=== PATIENT | female | born 1980 | race Caucasian/White ===

== ENCOUNTER 2020-08-03 10:14 | Outpatient (REF) | payer OTHER, SELFPAY | END 2020-08-03 10:15 | disposition home or self-care (01) | LOC: HO.LAB 10:14 | PROVIDERS: PCP Nurse Practitioner Family; Visit Provider Internal Medicine | DX: Z20.828 Contact with and (suspected) exposure to other viral communicable diseases (principal) | CPT/HCPCS: 87635 ==

== ENCOUNTER 2020-08-18 09:23 | Outpatient (REF) | payer OTHER, SELFPAY | END 2020-08-18 09:24 | disposition home or self-care (01) | LOC: HO.LAB 09:23 | PROVIDERS: Visit Provider Internal Medicine | DX: Z20.828 Contact with and (suspected) exposure to other viral communicable diseases (principal) | CPT/HCPCS: C9803; U0003 ==

== ENCOUNTER 2021-01-04 16:39 | Emergency (ER) | payer OTHER, SELFPAY ==
[2021-01-04 16:42] VITALS: BP 152/73; PULSE 88; RESP 16; TEMP 36.7; BMI 41.5
[2021-01-04 18:28] LABS: MANUAL DIFF FLAG NO
[2021-01-04 18:30] LABS: Basophils Absolute Auto 0.1 X10*3/uL (0.0-0.2); Basophils Percent Auto 0.5 % (0-2); Eosinophils Absolute Auto 0.4 X10*3/uL (0.0-0.4); Eosinophils Percent Auto 3.5 % (0-4); Hematocrit 36.9 % (37-47); Hemoglobin 11.5 g/dl (12.0-16.0); Imm Gran Abs Auto 0.04 X10*3/uL (0.00-0.03); Imm Gran Pct Auto 0.3 % (0.0-0.4); Lymphocytes Absolute Auto 3.1 X10*3/uL (1.2-4.9); Lymphocytes Percent Auto 25.9 % (20-40); Mean Corpuscular HGB Conc 31.2 g/dl (31.0-35.0); Mean Corpuscular Hemoglobin 25.9 pg (27.0-33.0); Mean Corpuscular Volume 83.1 fL (80-98); Mean Platelet Volume 9.9 fL (9.4-12.3); Monocytes Absolute Auto 0.8 X10*3/uL (0.1-1.2); Monocytes Percent Auto 6.7 % (2-11); Neutrophils Absolute Auto 7.4 X10*3/uL (2.0-8.3); Neutrophils Percent Auto 63.1 % (45-73); Platelet Count 335 X10*3/uL (160-400); Red Blood Count 4.44 X10*6/uL (4.20-5.50); Red Cell Distribution Width 14.2 % (11.0-16.0); White Blood Count 11.8 X10*3/uL (4.8-10.8)
[2021-01-04 19:02] LABS: Anion Gap 15 (12-20); Blood Urea Nitrogen 16 mg/dL (9-16); Calcium 8.8 mg/dL (8.4-10.2); Carbon Dioxide 25 mmol/L (22-29); Chloride 105 mmol/L (96-108); Creatinine Clr Calc Pharmacy 132.3; Estimated Glomerular Filt Rate > 60; Glucose Random 100 mg/dL (60-115); Potassium 4.1 mmol/L (3.3-5.1); Sodium 141 mmol/L (135-145)
== END 2021-01-04 21:02 | disposition left against medical advice (07) ==
PROVIDERS: Emergency Provider Emergency Medicine
DX: M54.5 Low back pain (principal)
CPT/HCPCS: 36415; 80048; 85025; 99282

== ENCOUNTER 2023-01-22 09:38 | Emergency (ER) | payer OTHER, SELFPAY ==
--- NOTE | ~2023-01-22 | XR_ITS ---
EXAMINATION: XR CHEST CLINICAL INFORMATION: Chest pain COMPARISON: Chest x-ray 12/05/2018 TECHNIQUE: 2 views of the chest were obtained. FINDINGS: No significant abnormality is noted involving the heart, lungs, mediastinum, bony thorax or soft tissues. XR/XR chest 2V IMPRESSION: Unremarkable chest examination.
--- NOTE | 2023-01-22 09:40 | ECG_ITS ---
Test Reason : chest pain Blood Pressure : / mmHG Vent. Rate : 076 BPM Atrial Rate : 076 BPM P-R Int : 170 ms QRS Dur : 086 ms QT Int : 410 ms P-R-T Axes : 008 -07 011 degrees QTc Int : 461 ms Normal sinus rhythm Moderate voltage criteria for LVH, may be normal variant ( R in aVL , John product ) Borderline ECG When compared with ECG of 05-DEC-2018 22:41, Minimal criteria for Septal infarct are no longer Present Referred By: Generic ED Physician Electronically Signed By:KRISTA HEMPHILL MD
[2023-01-22 09:45] VITALS: BP 135/78; PULSE 77; RESP 16; TEMP 36.5; O2SAT 95; BMI 45.8
--- NOTE | 2023-01-22 09:55 | PC.NURSE ---
patient a&ox3, c/o mid sternal chest pain for months, labs drawn, ekg performed, counter installer applied-nsr, vss, pt awaiting provider
--- NOTE | 2023-01-22 09:57 | ED.CHESTPAIN ---
HPI - Chest Pain General Chief Complaint: Chest Pain Stated Complaint: chest pain Time Seen by Provider: 01/22/23 09:56 Source: patient Mode of arrival: ambulatory Limitations: no limitations History of Present Illness HPI narrative: Patient is a 42 year old assigned female at with a history of asthma presenting to the emergency department today with episodic central pressure chest pain x 2 months. Patient states that she had an episode this AM, her episodes usually spontaneously resolve after 60 mins. Has not noticed correlation with food ingestion or exercise. States she stays stationary at home, no recent trauma, and does not take any hormone or OCP. Patient denies any dizziness, lightheadedness, abdominal pain, nausea, vomiting, fever, chills, blurry vision, double vision, loss of vision, current chest pain, difficulty breathing, shortness of breath, back pain, night sweats, pain with urination, increased urinary frequency, increased urinary urgency, blood in her urine or stool, syncope or a near syncopal episode, recent trauma or falls, bowel incontinence, bladder incontinence, bowel retention, bladder retention, or any other complaints at this time. MD complaint: chest pain Pertinent past history: asthma Onset (ago): month(s) Timing of current episode: episodic Related Data On Oral Contraceptives: No Allergies Allergy/AdvReac Type Severity Reaction Status Date / Time acetaminophen [From TYLENOL] Allergy Mild HIVES Verified 01/22/23 09:49 codeine [CODEINE] Allergy Unknown HIVES Verified 01/22/23 09:49 Review of Systems Constitutional: Constitutional: Reports no additional constitutional complaints, Denies chills, Denies fever(s) and Denies night sweats Eyes: Eyes: Reports no additional eye complaints, Denies blurry vision, Denies change in vision, Denies diplopia, Denies eye discharge, Denies loss of vision and Denies eye pain ENT: Denies dizziness Cardiovascular: Cardiovascular: Reports no additional cardiovascular complaints, Reports chest pain (now resolved), Denies lightheadedness, Denies Loss of Consciousness and Denies dyspnea Respiratory: Respiratory: Reports no additional respiratory complaints and Denies dyspnea Gastrointestinal: Gastrointestinal: Reports no additional gastrointestinal complaints, Denies abdominal pain, Denies melena, Denies hematochezia, Denies change in bowel habits and Denies change in stool character Genitourinary: Genitourinary: Denies hematuria, Denies urinary frequency, Denies dysuria, Denies urinary incontinence, Denies urinary hesitancy and Denies urinary urgency Musculoskeletal: Musculoskeletal: Reports no additional musculoskeletal complaints, Denies numbness and Denies tingling Neurologic: Denies dizziness, Denies loss of vision, Denies numbness and Denies tingling Psychiatric: Psychiatric: Reports no additional psychiatric complaints Endocrine: Endocrine: Reports no additional endocrine complaints Hematologic/Lymphatic: Hematologic/Lymphatic: Reports no additional hematologic/lymphatic complaints Allergic/Immunologic: Allergic/Immunologic: Reports no additional allergic/immunologic complaints [facility] Past Medical History Attestation statement: The following information was validated with the patient. Source: old records reviewed and nursing notes reviewed Medical History Asthma Cervical cancer Surgical History History of hysterectomy Social History Social History Alcohol intake: never Smoked in Last 30 Days: No Use of substances other than those prescribed or required for medical reasons: No Advance Directives: No Advance Directives Information Provided: No Patient : No Physical Exam Vital Signs: Vital Signs: Last Vital Signs Temp 97.7 F 01/22/23 09:45 Pulse 77 01/22/23 09:45 Resp 16 01/22/23 09:45 BP 135/78 01/22/23 09:45 Pulse Ox 95 01/22/23 09:45 O2 Del Method Room Air 01/22/23 09:45 BMI result Body Mass Index 45.8 Const: General: cooperative, no acute distress, alert and awake Nutritional Appearance: well nourished Orientation/consciousness: patient oriented x3 Limitations: no limitations HEENT: Head: Yes normal to inspection and Yes atraumatic Ears: hearing grossly normal bilaterally and external ears normal General nose exam: Normal external nose present, no nasal discharge noted and no epistaxis Face and sinus: Yes normal facial exam, No abrasion and No laceration Mouth: Normal oral and palatal mucosa present, no drooling and no muffled voice Eyes: General: appearance normal, both eyes and all related structures Periorbital: periorbital findings normal Eyelids: Yes eyelids normal Conjunctivae: conjunctivae normal Pupils: Equal, round and reactive pupils present EOM: EOMs intact bilaterally Neck: Neck: Yes normal visual inspection, Yes full ROM and Yes no lymphadenopathy Chest: Chest palpation & inspection: normal inspection of the chest Resp: Effort & Inspection: normal respiratory effort and able to speak in complete sentences Auscultation: clear to auscultation bilaterally Cardio: Rate: regular rate Rhythm: regular rhythm Heart sounds: S1 normal heart sound present GI: Inspection: Yes normal to inspection Palpation (GI): Soft to palpation, not firm, nontender and no guarding Neuro: General: patient oriented x3 and moves all extremities Cranial nerves: Yes Equal, round and reactive pupils present Cognition (Neuro): normal cognition Motor exam (neuro): 5/5 motor strength present throughout Sensory Exam: Normal double simultaneous stimulation for sensation Coordination: [id number] test normal Extrem: General: Yes normal to inspection, Yes full ROM and Yes capillary refill normal Psych: Appearance: grossly normal Mental Status: mental status grossly normal Affect: normal affect Attitude: cooperative Thought process: Normal thought process present Thought content: Normal thought content present Insight: Good insight present (Psych) Medications Administered Discontinued Medications Generic Name Dose Route Start Last Admin Trade Name Freq PRN Reason Stop Dose Admin Ketorolac Tromethamine 15 mg 01/22/23 10:50 01/22/23 10:59 Ketorolac Tromethamine 15 Mg/Ml Vial IM 01/22/23 10:51 15 mg ONCE ONE Administration Medical Decision Making Medical Decision Making [facility] Narrative: Patient is a 42 year old assigned female at with a history of asthma presenting to the emergency department today after an episode of chest pain that is now resolved. Patient's physical exam was unremarkable. Patient's blood work was unremarkable. Patient's EKG was unremarkable. Patient's chest x-ray showed no acute process. I explained my physical exam findings as well as all test results to the patient. I answered all questions asked by the patient. Patient received IM Toradol which she stated helped her symptoms significantly. I stressed the importance of the patient taking her medication as prescribed. I stressed the importance of the patient following up with her primary care provider. I stressed the importance of the patient returning to the emergency department immediately if her symptoms were to worsen or if she were to develop any dizziness, shortness of breath, difficulty breathing, chest pain, blurry vision, loss of vision, nausea, vomiting, abdominal pain, fever, chills, back pain, or any other complaints. Patient verbalized agreement and understanding with this treatment plan and discharge. Differential Diagnosis Differential Diagnoses: The differential diagnosis associated with the presentation includes resolved chest pain, chest wall pain Lab Data MDM Lab Attestation statement: I reviewed the patient's lab results. 01/22/23 09:55 01/22/23 09:55 Labs: Lab Results 01/22/23 01/22/23 01/22/23 Range/Units 09:55 09:55 09:55 WBC 11.2 H (4.8-10.8) X10*3/uL RBC 4.74 (4.20-5.50) X10*6/uL Hgb 12.3 (12.0-16.0) g/dl Hct 39.0 (37.0-47.0) % MCV 82.3 (80.0-98.0) fL MCH 25.9 L (27.0-33.0) pg MCHC 31.5 (31.0-35.0) g/dl RDW 14.1 (11.0-16.0) % Plt Count 342 (160-400) X10*3/uL MPV 9.9 (9.4-12.3) fL Immature Gran % (Auto) 0.4 (0.0-0.4) % Neut % (Auto) 64.0 (45-73) % Lymph % (Auto) 25.7 (20-40) % Power % (Auto) 6.5 (2-11) % Eos % (Auto) 2.8 (0-4) % Baso % (Auto) 0.6 (0-2) % Lymph # (Auto) 2.9 (1.2-4.9) X10*3/uL Power # (Auto) 0.7 (0.1-1.2) X10*3/uL Eos # (Auto) 0.3 (0.0-0.4) X10*3/uL Baso # (Auto) 0.1 (0.0-0.2) X10*3/uL Abs Immat Gran (auto) 0.05 H (0.00-0.03) X10*3/uL Absolute Neuts (auto) 7.1 (2.0-8.3) x10*3/uL Absolute Nucleated RBC 0.000 (0.0-0.012) X10*3/uL Nucleated RBC % (auto) 0.0 (0.0-0.2) /100WBC Sodium 140 (135-145) mmol/L Potassium 4.0 (3.3-5.1) mmol/L Chloride 105 (96-108) mmol/L Carbon Dioxide 27 (22-29) mmol/L Anion Gap 12 (12-20) BUN 12 (9-16) mg/dL Creatinine 0.74 (0.5-1.4) mg/dL Estim Creat Clear Calc 143.7 Estimated GFR > 60 Random Glucose 131 H (60-115) mg/dL Calcium 8.9 (8.4-10.2) mg/dL Troponin I High Sens < 2.7 (<3.5-17.0) ng/L Independent Interpretation I performed an independent interpretation of an: EKG Interpretation: Vent. Rate: 076 BPM ? ? Atrial Rate: 076 BPM P-R Int: 170 ms? QRS Dur: 086 ms QT Inc: 410 ms ? ? ? P-R-T Axes: 008 -07 011 degrees QTc Int: 461 ms ? Normal sinus rhythm Moderate voltage criteria for LVH, may be normal variant ( R in aVL , John product ) Borderline ECG When compared with ECG of 05-DEC-2018 22:41, Minimal criteria for Septal infarct are no longer Present Electronically Signed By:NILS LINDQUIST MD Dictated By: Nils Lindquist MD Signed By: Electronically signed by Nils Lindquist MD 01/22/23 1022 Radiology Impression Radiologist Impression: My interpretation is in agreement with the radiologist's impression of this imaging study. EXAMINATION: XR CHEST CLINICAL INFORMATION: Chest pain COMPARISON: Chest x-ray 12/05/2018 TECHNIQUE: 2 views of the chest were obtained. FINDINGS: No significant abnormality is noted involving the heart, lungs, mediastinum, bony thorax or soft tissues. XR/XR chest 2V IMPRESSION: Unremarkable chest examination. Dictated By: Remberto Leiva MD Signed By: Electronically signed by Remberto Leiva MD 01/22/23 1044 Discharge Plan Discharge Clinical Impression: Chest wall pain Patient Disposition: Home, Self-Care Instructions: Chest Wall Pain (ED) Additional Instructions: Follow up with your primary care provider. Return to the emergency department immediately if your symptoms worsen or if you develop any dizziness, shortness of breath, difficulty breathing, chest pain, blurry vision, loss of vision, nausea, vomiting, abdominal pain, fever, chills, back pain, or any other complaints. Referrals: [facility] Family Medicine [Provider Group] (Call to establish and follow up with a primary care provider. If you already have a primary care provider, please follow up with them.) [facility] [Provider Group] (Call to establish and follow up with a primary care provider. If you already have a primary care provider, please follow up with them.) [facility] Primary Care,[facility] [Provider Group] (Call to establish and follow up with a primary care provider. If you already have a primary care provider, please follow up with them.) Stand Alone Forms: Work/School Release Interventions: ED Discharge Assessment Last Done: 01/22/23 11:06 Discharge Date/Time: 01/22/23 11:06 Print Language: Sri Lankan
[2023-01-22 09:58] LABS: MANUAL DIFF FLAG NO
[2023-01-22 09:59] LABS: Basophils Absolute Auto 0.1 X10*3/uL (0.0-0.2); Basophils Percent Auto 0.6 % (0-2); Eosinophils Absolute Auto 0.3 X10*3/uL (0.0-0.4); Eosinophils Percent Auto 2.8 % (0-4); Hemoglobin 12.3 g/dl (12.0-16.0); Imm Gran Abs Auto 0.05 X10*3/uL (0.00-0.03); Imm Gran Pct Auto 0.4 % (0.0-0.4); Lymphocytes Absolute Auto 2.9 X10*3/uL (1.2-4.9); Lymphocytes Percent Auto 25.7 % (20-40); Mean Corpuscular HGB Conc 31.5 g/dl (31.0-35.0); Mean Corpuscular Hemoglobin 25.9 pg (27.0-33.0); Mean Corpuscular Volume 82.3 fL (80.0-98.0); Mean Platelet Volume 9.9 fL (9.4-12.3); Monocytes Absolute Auto 0.7 X10*3/uL (0.1-1.2); Monocytes Percent Auto 6.5 % (2-11); Neutrophils Absolute Auto 7.1 x10*3/uL (2.0-8.3); Platelet Count 342 X10*3/uL (160-400); Red Blood Count 4.74 X10*6/uL (4.20-5.50); Red Cell Distribution Width 14.1 % (11.0-16.0); White Blood Count 11.2 X10*3/uL (4.8-10.8)
[2023-01-22 10:15] LABS: Anion Gap 12 (12-20); Blood Urea Nitrogen 12 mg/dL (9-16); Calcium 8.9 mg/dL (8.4-10.2); Carbon Dioxide 27 mmol/L (22-29); Chloride 105 mmol/L (96-108); Creatinine Clr Calc Pharmacy 143.7; Estimated Glomerular Filt Rate > 60; Glucose Random 131 mg/dL (60-115); Sodium 140 mmol/L (135-145)
--- NOTE | 2023-01-22 10:20 | PC.NURSE ---
pt to xray
[2023-01-22 10:25] LABS: Troponin-I High Sensitivity < 2.7 ng/L (<3.5-17.0)
--- OUTSIDE RECORDS SUMMARY | 2023-01-22 10:35 | XMS_ITS | Continuity of Care Document ---
Author Name Unknown Organization [facility] Address [address] [place] [id number]- Care Team Providers Care Buffing Wheel Inspector Name Role Phone Josr MARTÍNEZ, Rika Yanes Primary Care Physician [phone] Encounter [facility] Date(s): 09/04/20 - 10/04/20 [facility] [address] [place] [address]- Attending Physician: Poonam Rich Admitting Physician: Poonam Rich Referring Physician: AdmtrPoonam Allergies, Adverse Reactions, Alerts Substance Reaction Severity Status Tylenol with Codeine gets red and hot Act mulu Immunizations Given and Recorded Vaccine Date Status Refusal Reason pneumococcal 13-valent vaccine 1 08/04/17 Given tetanus/diphtheria/pertussis, acel(Tdap) 03/20/16 Given pneumococcal 23-valent vaccine 09/29/13 Given 1Early/Late Reason: Wan to Standard Admin Times Medications albuterol 0.083% inhalation solution 3 mL = 2.5 mg, Inhalation, Every 6 hours, PRN for wheezing, # 25 each, 0 Refills, Maintenance, 11/18/19 14:20:00 EST, Solution, [id number], 167.1, cm, 11/18/19 13:45:00 EST, Height, 119.9, kg, 08/31/19 12:00:00 EST, Dry Weight Start Date: 11/18/19 Status: Ordered albuterol 0.083% inhalation solution 3 mL = 2.5 mg, Inhalation, Every 6 hours, PRN for wheezing, # 60 each, 0 Refills, Maintenance, 06/22/19 10:43:09 EDT, Solution Start Date: 06/22/19 Status: Ordered albuterol CFC free 90 mcg/inh inhalation aerosol 2, puffs, Inhalation, 4 times a day, PRN, # 25 Gm, Refills 2, Tot. Refills 2, Maintenance, 12/28/2011:08:00 EDT, Aerosol, Route to Pharmacy Electronically, [id number], [id number], 167.1, cm, 12/28/19 11:35:00 EDT, He... Start Date: 12/28/19 Status: Ordered Claritin 10 mg oral tablet 10 mg, 1, tablet, By Mouth, Daily, # 30 tablet, Refills 11, Tot. Refills 11, Maintenance, 06/22/19 10:44:05 EDT, Route to Pharmacy Electronically, [id number], [id number] Start Date: 06/22/19 Stop Date: 06/16/20 Status: Ordered diclofenac 1% topical gel 1 application, Topically, 4 times a day, PRN Pain , Severe, right ankle and left wrist due for labs. orders in the system. please go to any [facility] lab., # 100 Gm, 0 Refills, Maintenance, 10/02/20 11:22:00 EST, Gel, [facility]/pharmacy #[id number], Partial fill... Start Date: 10/02/20 Status: Ordered Flovent HFA 110 mcg/inh inhalation aerosol 2 puffs, Inhalation, 2 times a day, # 12 Gm, 3 Refills, Maintenance, 12/28/19 12:07:00 EDT, Aerosol, [facility] #[id number], 167.1, cm, 12/28/19 11:35:00 EDT, Height, 119.9, kg, 08/31/19 12:00:00 EST, Dry Weight Start Date: 12/28/19 Status: Ordered Nebulizer/Compressor See Instructions, # 1 each, Maintenance, use as needed, 09/14/19 11:33:05 EST, Compound Start Date: 09/14/19 Status: Ordered Nebulizer/Compressor See Instructions, # 1 each, Maintenance, as directed. with all supplies including tubing and mouthpiece, 09/14/19 11:53:40 EST, Compound Start Date: 09/14/19 Status: Ordered predniSONE 20 mg oral tablet See Instructions, in arabic : one tab a day for 10 days then decrease to 1/2 tab a day for 7 d., #14 tablet, 0 Refills, Maintenance, 01/26/20 16:02:00 EDT, Tablet, [id number], 167.1, cm, 01/11/20 11:27:00 EDT, Height, 119.9, kg, 08/31/19 12:... Start Date: 01/26/20 Status: Ordered wrist splints wrist splints, See Instructions, # 2 each, Refills 0, Tot. Refills 0, Maintenance, dx : cts, to usenightly ., 01/31/20 15:50:00 EDT, Supply Start Date: 01/31/20 Status: Ordered Zaditor 0.025% ophthalmic solution 1 drops, Eyes, Both, Every 12 hours, # 7.5 mL, 0 Refills, Maintenance, 06/22/19 10:44:19 EDT, 1 drops Eyes, Both Every 12 hours Start Date: 06/22/19 Status: Ordered Problem List Condition Effective Dates Status Health Status Inform ant Acute asthma flare(Confirmed) Active Allergic rhinitis(Confirmed) Active Asthma(Confirmed) Active Bartholin's gland cyst(Confirmed) Active Lipoma of back(Confirmed) Active Cervical cancer(Confirmed) Active Morbid obesity(Confirmed) Active Acquired vaginal adhesions(Confirmed) Active Social History Social History Type Response Smoking Status Never smoker entered on: 07/22/17 Sex
--- OUTSIDE RECORDS SUMMARY | 2023-01-22 10:35 | XMS_ITS | Continuity of Care Document ---
Author Name Unknown Organization [facility] Address [address] [place] [id number]- Care Team Providers Care Director Vaccine Name Role Phone Damian Reyes MD Primary Care Physician Encounter [facility] [place] Date(s): 12/09/22 - 01/09/[address] [facility] [address] [address] Attending Physician: Arturo Berry MD Admitting Physician: Arturo Berry MD Referring Physician: Damian Reyes MD Allergies, Adverse Reactions, Alerts Substance Reaction Severity Status SUMAtriptan 1 Persistent Moderate Active Tylenol with Codeine gets red and hot Act mulu 1Vomiting, weakness, flushing Immunizations Given and Recorded Vaccine Date Status Refusal Reason [id number] 12y+ bivalent booster vax 01/02/23 Given SARS-CoV-2 mRNA ([id number]) vax 02/18/22 Given SARS-CoV-2 (COVID-19) mRNA BNT-162b2 vac 07/24/21 Given SARS-CoV-2 (COVID-19) mRNA BNT-162b2 vac 07/03/21 Given pneumococcal 13-valent vaccine 1 08/04/17 Given tetanus/diphtheria/pertussis, acel(Tdap) 03/20/16 Given pneumococcal 23-valent vaccine 09/29/13 Given 1Early/Late Reason: Wan to Standard Admin Times Medications albuterol CFC free 90 mcg/inh inhalation aerosol 2, puffs, Inhalation, 4 times a day, PRN, # 25 Gm, Refills 2, Tot. Refills 2, Maintenance, 08/04/2214:56:00 EDT, Aerosol, Route to Pharmacy Electronically, [id number], [id number], 167, cm, 08/04/22 14:42:00... Start Date: 08/04/22 Status: Ordered AutoCPAP 8-20 with heated humidification AutoCPAP 8-20 with heated humidification, See Instructions, # 1 each, Refills 0, Tot. Refills 0, Maintenance, use overnight and naps from [facility], 12/10/22 13:36:00 EST, Compound Start Date: 12/10/22 Status: Ordered Bilateral Class I (20-30mmHg) Thigh-high Stockings Bilateral Class I (20-30mmHg) Thigh-high Stockings, See Instructions, # 2 kit, Refills 2, Tot. Refills 2, Maintenance, Dx: I87.2. SABRINA: 99 Use daily. On in a.m. off at bedtime, 01/02/23 11:19:00 EDT, Supply Start Date: 01/02/23 Status: Ordered Compression Stockings See Instructions, # 2 pack/packet, Maintenance, surgical, calf length 20-30 mm Hg, 12/30/22 6:20:00EDT, Supply, 167, cm, 12/17/22 10:11:00 EST, Height, 130.9, kg, 12/17/22 10:11:00 EST, Dry Weight Start Date: 12/30/22 Status: Ordered Compression Stockings See Instructions, # 1 each, Maintenance, surgical, knee length 20-30 mm Hg Varicose veins of both lower extremities (I83.93) use daily to prevent worsening varicose veins/swelling LEs, 06/28/21 8:27:00 EDT, Supply Start Date: 06/28/21 Status: Ordered diclofenac 1% topical gel = 2 Gm, Topically, 4 times a day, PRN Pain , Moderate, # 100 Gm, 0 Refills, Maintenance, 01/02/23 11:21:00 EDT, [id number], Partial fill upon patient request if the prescription is for a schedule II opioid drug., 167, cm, 01/02/23 10:... Start Date: 01/02/23 Stop Date: 02/01/23 Status: Ordered enalapril 5 mg oral tablet 5 mg, 1, tablet, By Mouth, Daily, # 30 tablet, Refills 3, Tot. Refills 3, Maintenance, 11/06/22 15:19:00 EST, Route to Pharmacy Electronically, [id number], Partial fill upon patient request if the prescription is for a schedule II opi... Start Date: 11/06/22 Status: Ordered Home Blood Pressure Monitor See Instructions, # 1 each, Maintenance, I10 SABRINA 99 Arm Circ 37 CM, BMI 286 lbs weight 36.6, 06/05/22 11:19:00 EDT, Supply Start Date: 06/05/22 Status: Ordered montelukast 10 mg oral tablet 10 mg, 1, tablet, By Mouth, Daily, # 30 tablet, Refills 5, Tot. Refills 5, Maintenance, 06/30/22 10:47:00 EDT, Route to Pharmacy Electronically, [facility] #[id number], Partial fill upon patientrequest if the prescription is for a schedule II op... Start Date: 06/30/22 Stop Date: 12/27/22 Status: Ordered Nebulizer/Compressor See Instructions, # 1 each, Maintenance, as directed. with all supplies including tubing and mouthpiece, 09/14/19 11:53:40 EST, Compound Start Date: 09/14/19 Status: Ordered Symbicort 160mcg/4.5mcg Inhaler 2, puffs, Inhalation, 2 times a day, # 10.2 Gm, Refills 6, Tot. Refills 6, Maintenance, 09/23/22 11:11:00 EST, Aerosol, Route to Pharmacy Electronically, [id number], [facility] #[id number], 167, cm, 09/11/22 11:44:00 EST... Start Date: 09/23/22 Status: Ordered tiZANidine 2 mg oral tablet 2 mg, 1, tablet, By Mouth, 3 times a day, # 90 tablet, Refills 0, Tot. Refills 0, Maintenance, 12/11/22 13:37:00 EST, Route to Pharmacy Electronically, [facility] #[id number], Partial fill upon patient request if the prescription is for a schedul... Start Date: 12/11/22 Status: Ordered wrist splints wrist splints, See Instructions, # 2 each, Refills 0, Tot. Refills 0, Maintenance, dx : cts, to usenightly ., 01/31/20 15:50:00 EDT, Supply Start Date: 01/31/20 Status: Ordered Problem List Condition Confirmation Course Effective Dates Status Health St atus Informant Acute asthma flare Confirmed Active Allergic rhinitis Confirmed Active Asthma Confirmed Active Bartholin's gland cyst Confirmed Active Carpal tunnel syndrome, left Confirmed Active S/P laparoscopic appendectomy Confirmed 04/19/22 Active HTN (hypertension) Confirmed Active Lipoma of back Confirmed Active Cervical cancer Confirmed Active MAGNOLIA (obstructive sleep apnea) Confirmed Active Prediabetes Confirmed Active Severe obesity Confirmed Active Acquired vaginal adhesions Confirmed Active Varicose veins of both lower extremities Confirmed Active Social History Social History Type Response Smoking Status Never (less than 100 in lifetime) entered on: 01/02/23 Sex Patient Care team information Care Team Personnel Name: Damian Reyes MD Position: [facility] Resident Member Role: PCP Address: Address: [address] [place] [address]- Name: Zoya Rodgers RN Position: [facility] Onco RN Member Role: Primary Care Nurse Name: Jayde Llanos RN Position: [facility] RN Member Role: Primary Care Nurse Care Team Related Persons Name: RUSLAN MCCRARY Address: [address] [address] Name: BREANA MCCLENDON Address: home [address] [address] Name: DONTAE BAZZI Address: [address] [place] [address] Name: CELESTINE BAZZI Address: home [address] [place] [address]
--- OUTSIDE RECORDS SUMMARY | 2023-01-22 10:35 | XMS_ITS | Continuity of Care Document ---
Author Name Unknown Organization [facility] Address [address] [place] [address]- Care Team Providers Care Hoof Trimmer Name Role Phone Josr MARTÍNEZ, Rika Yanes Primary Care Physician [phone] [place] [facility] [place] [facility] [id number] Date(s): 01/31/21 - 03/02/21 [facility]/[address] [address] Attending Physician: Admtr, Ar8 Allergies, Adverse Reactions, Alerts Substance Reaction Severity [...] 12/28/2011:08:00 EDT, Aerosol, Route to Pharmacy Electronically, [id number], [facility]/pharmacy #[id number], 167.1, cm, 12/28/19 11:35:00 EDT, He... Start Date: 12/28/19 Status: Ordered Claritin 10 mg oral tablet 10 mg, 1, tablet, By Mouth, Daily, # 30 tablet, Refills 11, Tot. Refills 11, Maintenance, 06/22/19 10:44:05 EDT, Route to Pharmacy Electronically, [id number], [facility]/pharmacy #[id number] Start Date: 06/22/19 Stop Date: 06/16/20 Status: Ordered diclofenac 1% topical gel 1 application, Topically, 4 times a day, PRN Pain , Severe, right ankle and left wrist due for labs. orders in the system. please go to any [facility] lab., # 100 Gm, 0 Refills, Maintenance, 12/02/20 19:47:00 EST, Gel, [facility]/pharmacy #[id number], Partial fill... Start Date: 12/02/20 Status: Ordered diclofenac potassium 50 mg oral tablet 1 tablet = 50 mg, By Mouth, 3 times a day, PRN for pain, PRN Foot and knee pain. To replace naproxen. Sami. Take with food., # 50 tablet, 1 Refills, Maintenance, 01/02/21 16:27:00 EDT, Tablet, [facility]/pharmacy #[id number], Partial fill upon patient request i... Start Date: 01/02/21 Status: Ordered Flovent HFA 110 mcg/inh inhalation aerosol 2 puffs, Inhalation, 2 times a day, # 12 Gm, 3 Refills, Maintenance, 12/28/19 12:07:00 EDT, Aerosol, [facility]/pharmacy #[id number], 167.1, cm, 12/28/19 11:35:00 EDT, Height, 119.9, kg, 08/31/19 12:00:00 EST, Dry Weight Start Date: 12/28/19 Status: Ordered Nebulizer/Compressor See Instructions, # 1 each, Maintenance, use as needed, 09/14/19 11:33:05 EST, Compound Start Date: 09/14/19 Status: Ordered Nebulizer/Compressor See Instructions, # 1 each, Maintenance, as directed. with all supplies including tubing and mouthpiece, 09/14/19 11:53:40 EST, Compound Start Date: 09/14/19 Status: Ordered piroxicam 10 mg oral capsule 1 capsule, By Mouth, 2 times a day with meals, # 60 capsule, 0 Refills, Maintenance, 02/06/21 8:15:00 EDT, [id number], 167.1, cm, 01/31/21 14:36:00 EDT, Height, 125.45, kg, 11/28/20 15:44:00 EST, Dry Weight Start Date: 02/06/21 Status: Ordered predniSONE 20 mg oral tablet See Instructions, in english : one tab a day for 10 days then decrease to 1/2 tab a day for 7 d., #14 tablet, 0 Refills, Maintenance, 01/26/20 16:02:00 EDT, Tablet, [facility]/pharmacy #[id number], 167.1, cm, 01/11/20 11:27:00 EDT, Height, [...] Smoking Status Never (less than 100 in lifetime); Exposure to Secondhand Smoke: No entered on: 01/31/21 Sex
--- OUTSIDE RECORDS SUMMARY | 2023-01-22 10:35 | XMS_ITS | Continuity of Care Document ---
Author Name Unknown Organization [facility] Address [address] [place] [address]- Care Team Providers Care Lighting Specialist Name Role Phone Damian Reyes MD Primary Care Physician [phone] [place] [facility] [place]s): 10/14/22 - 11/13/22 [facility]/[address] [address]- [place] Allergies, Adverse Reactions, Alerts Substance Reaction Severity Status SUMAtriptan 1 Persistent Moderate Active Tylenol with Codeine gets red and hot Act mulu 1Vomiting, weakness, flushing Immunizations Given and Recorded Vaccine Date Status Refusal Reason SARS-CoV-2 mRNA (mdixjvb-vmky-ycxdb) vax 02/18/22 Given SARS-CoV-2 (COVID-19) mRNA BNT-162b2 [...] 08/04/2214:56:00 EDT, Aerosol, Route to Pharmacy Electronically, [id number], [facility][id number], 167, cm, 08/04/22 14:42:00... Start Date: 08/04/22 Status: Ordered Compression Stockings See Instructions, # 1 each, Maintenance, surgical, knee length 20-30 mm Hg Varicose veins of both lower extremities (I83.93) use daily to prevent worsening varicose veins/swelling LEs, 06/28/21 8:27:00 EDT, Supply Start Date: 06/28/21 Status: Ordered enalapril 5 mg oral tablet 5 mg, 1, tablet, By Mouth, Daily, # 30 tablet, Refills 3, Tot. Refills 3, Maintenance, 11/06/22 15:19:00 EST, Route to Pharmacy Electronically, [facility] #[id number], Partial fill upon patient request if the [...] 06/30/22 10:47:00 EDT, Route to Pharmacy Electronically, [facility] #[id number], Partial fill upon patientrequest if the prescription [...] 11:11:00 EST, Aerosol, Route to Pharmacy Electronically, [id number], [facility] #[id number], 167, cm, 09/11/22 11:44:00 EST... Start Date: 09/23/22 Status: Ordered wrist splints wrist splints, See [...] back Confirmed Active Cervical cancer Confirmed Active Prediabetes Confirmed Active Severe obesity Confirmed Active Acquired vaginal adhesions Confirmed Active Varicose veins of both lower extremities Confirmed Active Social History Social History Type Response Smoking Status Never (less than 100 in lifetime); Exposure to Secondhand Smoke: No entered on: 08/04/22 Sex Patient Care team information Care Team Personnel Name: Damian Reyes MD Position: [facility] Resident Member Role: PCP Address: Address: [address] [place] [address] Name: Vishal TEJEDA, Zoya Rueda Position: [facility] Onco RN Member Role: Primary Care Nurse Name: Jayde Llanos RN Position: [facility] RN Member Role: Primary Care Nurse Care Team Related Persons Name: RUSLAN MCCRARY Address: [address] [address] Name: BREANA MCCLENDON Address: [address] [address] Name: DONTAE BAZZI Address: home [address] [place] [address] Name: CELESTINE BAZZI Address: home [address] [place] [address]
--- OUTSIDE RECORDS SUMMARY | 2023-01-22 10:35 | XMS_ITS | Continuity of Care Document ---
Author Name Unknown Organization [facility] Address Unknown Care Team Providers Care Record Keeper Name Role Phone Tejas Castillo MD Primary Care Physician Encounter [facility] [place] Date(s): 11/06/21 - 12/06/21 [facility] Allergies, Adverse Reactions, Alerts Substance Reaction Severity Status Tylenol with Codeine gets red and hot Act mulu SUMAtriptan Persistent Moderate Active Immunizations Given and Recorded Vaccine Date Status Refusal Reason SARS-CoV-2 (COVID-19) mRNA BNT-162b2 vac 07/24/21 Given [...] 12/28/2011:08:00 EDT, Aerosol, Route to Pharmacy Electronically, [id number], [facility]/pharmacy #[id number], 167.1, cm, 12/28/19 11:35:00 EDT, He... Start Date: 12/28/19 Status: Ordered Claritin 10 mg oral tablet 10 mg, 1, tablet, By Mouth, Daily, # 30 tablet, Refills 11, Tot. Refills 11, Maintenance, 06/22/19 10:44:05 EDT, Route to Pharmacy Electronically, [id number], [facility]/pharmacy #[id number] Start Date: 06/22/19 Stop Date: 06/16/20 Status: Ordered Compression Stockings See Instructions, # 1 each, Maintenance, surgical, knee length 20-30 mm Hg Varicose veins of both lower extremities (I83.93) use daily to prevent worsening varicose veins/swelling LEs, 06/28/21 8:27:00 EDT, Supply Start Date: 06/28/21 Status: Ordered diclofenac 1% topical gel 1 application, Topically, 4 times a day, PRN Pain , Severe, right ankle and left wrist due for labs. orders in the system. please go to any [facility] lab., # 100 Gm, 0 Refills, Maintenance, 12/02/20 19:47:00 EST, Gel, [facility]/pharmacy #[id number], Partial fill... Start Date: 12/02/20 Status: Ordered diclofenac potassium 50 mg oral tablet 1 tablet = 50 mg, By Mouth, 3 times a day, PRN for pain, PRN Foot and knee pain. To replace naproxen. Niuean. Take with food., # 50 tablet, 1 Refills, Maintenance, 01/02/21 16:27:00 EDT, Tablet, [facility]/pharmacy #2071, Partial fill upon patient request i... Start Date: 01/02/21 Status: Ordered Excedrin Migraine oral tablet 2 tablet, By Mouth, Every 6 hours, PRN for headache, # 50 tablet, 0 Refills, Maintenance, 11/18/21 10:12:00 EST, Tablet, [facility]/pharmacy #[id number], Partial fill upon patient request if the prescription is for a schedule II opioid drug., 2 tablet By Mouth Niya... Start Date: 11/18/21 Status: Ordered Flovent HFA 110 mcg/inh inhalation aerosol 2 puffs, Inhalation, 2 times a day, # 12 Gm, 3 Refills, Maintenance, 12/28/19 12:07:00 EDT, Aerosol, [facility]/pharmacy #[id number], 167.1, cm, 12/28/19 11:35:00 EDT, Height, 119.9, kg, 08/31/19 12:00:00 EST, Dry Weight Start Date: 12/28/19 Status: Ordered Home Blood Pressure Monitor See Instructions, # 1 each, Maintenance, Check blood pressure; at least 2 hrs after taking bp pill hctz 12.5 mg daily, 07/22/21 11:54:00 EDT, Supply Start Date: 07/22/21 Status: Ordered hydroCHLOROthiazide 12.5 mg oral capsule 1 capsule = 12.5 mg, By Mouth, Daily, label in setswana, # 90 capsule, 1 Refills, Maintenance, 07/22/21 11:52:00 EDT, Capsule, [facility]/pharmacy #[id number], Partial fill upon patient request if the prescriptionis for a schedule II opioid drug., 167.1, cm, 07/22... Start Date: 07/22/21 Status: Ordered Nebulizer/Compressor See Instructions, # 1 each, Maintenance, use as needed, 09/14/19 11:33:05 EST, Compound Start Date: 09/14/19 Status: Ordered Nebulizer/Compressor See Instructions, # 1 each, Maintenance, as directed. with all supplies including tubing and mouthpiece, 09/14/19 11:53:40 EST, Compound Start Date: 09/14/19 Status: Ordered predniSONE 20 mg oral tablet See Instructions, in setswana : one tab a day for 10 days then decrease to 1/2 tab a day for 7 d., #14 tablet, 0 Refills, Maintenance, 01/26/20 16:02:00 EDT, Tablet, [id number], 167.1, cm, 01/11/20 11:27:00 EDT, Height, 119.9, kg, 08/31/19 12:... Start Date: 01/26/20 Status: Ordered tiZANidine 2 mg oral tablet 2 mg, 1, tablet, By Mouth, 2 times a day, take only at night at first can take up to 2 times a day if tolerating, # 14 tablet, Refills 0, Tot. Refills 0, Maintenance, 07/04/21 15:33:00 EDT, Route to Pharmacy Electronically, [facility]/pharmacy #[id number], Partial... Start Date: 07/04/21 Stop Date: 07/11/21 Status: Ordered wrist splints wrist splints, See [...] Active Asthma(Confirmed) Active Bartholin's gland cyst(Confirmed) Active HTN (hypertension)(Confirmed) Active Lipoma of back(Confirmed) Active Cervical cancer(Confirmed) Active Morbid obesity(Confirmed) Active Prediabetes(Confirmed) Active Severe obesity(Confirmed) Active Acquired vaginal adhesions(Confirmed) Active Varicose veins of both lower extremities(Confirmed) Active Social History Social History Type Response Smoking Status Never (less than 100 in lifetime); Exposure to Secondhand Smoke: No entered on: 01/31/21 Sex
--- OUTSIDE RECORDS SUMMARY | 2023-01-22 10:35 | XMS_ITS | Continuity of Care Document ---
Author Name Unknown Organization [facility] Address [address] [place] [address]- Care Team Providers Care Internet Site Designer Name Role Phone Tejas Castillo MD Primary Care Physician [place] [facility] [place] 10/27/[address] [address]- Attending Physician: Poonam Rich Admitting Physician: AdmPoonam muñiz Referring Physician: Admtr, ArPura Allergies, Adverse Reactions, Alerts Substance Reaction Severity Status SUMAtriptan Persistent Moderate Active Tylenol with Codeine gets [...] 12/28/2011:08:00 EDT, Aerosol, Route to Pharmacy Electronically, [id number], [facility]/pharmacy #2071, 167.1, cm, 12/28/19 11:35:00 EDT, He... Start Date: 12/28/19 Status: Ordered Claritin 10 mg oral tablet 10 mg, 1, tablet, By Mouth, Daily, # 30 tablet, Refills 11, Tot. Refills 11, Maintenance, 06/22/19 10:44:05 EDT, Route to Pharmacy Electronically, [id number], [facility]/pharmacy #2071 Start Date: 06/22/19 Stop Date: 06/16/20 [...] in the system. please go to any [facility] lab., # 100 Gm, 0 Refills, Maintenance, 12/02/20 19:47:00 EST, Gel, [facility]/pharmacy #2071, Partial fill... Start Date: 12/02/20 Status: Ordered diclofenac potassium 50 mg oral tablet 1 tablet = 50 mg, By Mouth, 3 times a day, PRN for pain, PRN Foot and knee pain. To replace naproxen. Maltese. Take with food., # 50 tablet, 1 Refills, Maintenance, 01/02/21 16:27:00 EDT, Tablet, [id number], Partial fill upon patient request i... Start Date: 01/02/21 Status: Ordered Flovent HFA 110 mcg/inh inhalation aerosol 2 puffs, Inhalation, 2 times a day, # 12 Gm, 3 Refills, Maintenance, 12/28/19 12:07:00 EDT, [facility]erosol, [id number], 167.1, cm, 12/28/19 11:35:00 EDT, Height, [...] 12.5 mg, By Mouth, Daily, label in singaporean, # 90 capsule, 1 Refills, Maintenance, 07/22/21 11:52:00 EDT, Capsule, [facility]/pharmacy #2071, Partial fill upon patient request if [...] 20 mg oral tablet See Instructions, in singaporean : one tab a day for 10 [...] 07/04/21 15:33:00 EDT, Route to Pharmacy Electronically, [facility]/pharmacy #[id number], Partial... Start Date: 07/04/21 Stop Date: 07/11/21 [...]
--- OUTSIDE RECORDS SUMMARY | 2023-01-22 10:35 | XMS_ITS | Continuity of Care Document ---
Author Name Unknown Organization [facility] Address [address] [place] [address]- Care Team Providers Care Float Builder Name Role Phone Damian Reyes MD Primary Care Physician Encounter [facility] [place] Date(s): 11/03/22 - 12/03/22 [facility]/[place] [address]- [place] Allergies, Adverse Reactions, Alerts Substance Reaction Severity Status Tylenol with Codeine gets red and hot Act mulu SUMAtriptan 1 Persistent Moderate Active 1Vomiting, weakness, flushing Immunizations Given and Recorded Vaccine Date Status Refusal Reason SARS-CoV-2 mRNA ([id number]-afxd-kmplo) vax 02/18/22 Given SARS-CoV-2 (COVID-19) mRNA BNT-162b2 [...] 08/04/2214:56:00 EDT, Aerosol, Route to Pharmacy Electronically, [id number], [facility] #[id number], 167, cm, 08/04/22 14:42:00... Start Date: 08/04/22 [...] 11/06/22 15:19:00 EST, Route to Pharmacy Electronically, [facility] #[id number], Partial fill upon patient request if the [...] 06/30/22 10:47:00 EDT, Route to Pharmacy Electronically, [facility] #[id number], Partial fill upon patientrequest if the prescription [...] 11:11:00 EST, Aerosol, Route to Pharmacy Electronically, [id number], [facility] #[id number], 167, cm, 09/11/22 11:44:00 EST... Start Date: [...] Team Personnel Name: Damian Reyes MD Position: [facility] Resident Member Role: PCP Address: Address: [address] [place] [id number] Name: Zoya Rodgers RN Position: [facility] Onco RN Member Role: Primary Care Nurse Name: Jayde Llanos RN Position: [facility] RN Member Role: Primary Care Nurse Care Team Related Persons Name: RUSLAN MCCRARY Address: home [address] [address] Name: BREANA MCCLENDON Address: [address] [address] Name: DONTAE BAZZI Address: [address] [place] [address] Name: CELESTINE BAZZI Address: home [address] [place] [address]
--- OUTSIDE RECORDS SUMMARY | 2023-01-22 10:35 | XMS_ITS | Continuity of Care Document ---
Author Name Unknown Organization [facility] Address [address] [place] [address]- Care Team Providers Care Flag Car Driver Name Role Phone Damian Reyes MD Primary Care Physician Encounter [facility] [place] [facility] R [id number] Date(s): 11/03/22 - 12/03/22 [facility] [address]- Attending Physician: Tejas Castillo MD Admitting Physician: Tejas Castillo MD Allergies, Adverse Reactions, Alerts Substance Reaction Severity Status Tylenol with Codeine gets red and hot Act mulu SUMAtriptan 1 Persistent Moderate Active 1Vomiting, weakness, flushing Immunizations Given and Recorded Vaccine Date Status Refusal Reason SARS-CoV-2 mRNA (bkgdvpa-aqeu-muuas) vax 02/18/22 Given SARS-CoV-2 (COVID-19) mRNA BNT-162b2 [...] 08/04/2214:56:00 EDT, Aerosol, Route to Pharmacy Electronically, [id number], [facility][id number], 167, cm, 08/04/22 14:42:00... Start Date: 08/04/22 [...] 11/06/22 15:19:00 EST, Route to Pharmacy Electronically, [facility] #[id number], Partial fill upon patient request if the [...] 06/30/22 10:47:00 EDT, Route to Pharmacy Electronically, [facility] #[id number], Partial fill upon patientrequest if the prescription [...] 11:11:00 EST, Aerosol, Route to Pharmacy Electronically, [id number], [facility] #[id number], 167, cm, 12/01/22 11:44:00 EST... Start Date: 09/23/22 Status: Ordered [...] Team Personnel Name: Damian Reyes MD Position: [facility] Resident Member Role: PCP Address: Address: [address] [place] [id number] Name: Zoya Rodgers RN Position: [facility] Onco RN Member Role: Primary Care Nurse Name: Jayde Llanos RN Position: [facility] RN Member Role: Primary Care Nurse Care Team Related Persons Name: RUSLAN MCCRARY Address: [address] [address] Name: BREANA MCCLENDON Address: [address] [address] Name: DONTAE BAZZI Address: [address] [place] [address] Name: CELESTINE BAZZI Address: home [address] [place] [address]
--- OUTSIDE RECORDS SUMMARY | 2023-01-22 10:35 | XMS_ITS | Continuity of Care Document ---
Author Name Unknown Organization [facility] Address [address] [place] [address]- Care Team Providers Care High Lead Yarder Name Role Phone Josr MARTÍNEZ, Rika Yanes Primary Care Physician Encounter [facility] [place] Date(s): 11/28/20 - 12/28/20 [facility]/[address] [address] Attending Physician: Admtr, Poonam Allergies, Adverse Reactions, Alerts Substance Reaction Severity [...] 12/28/2011:08:00 EDT, Aerosol, Route to Pharmacy Electronically, [id number], [facility]/pharmacy #2071, 167.1, cm, 12/28/19 11:35:00 EDT, He... Start Date: 12/28/19 Status: Ordered Claritin 10 mg oral tablet 10 mg, 1, tablet, By Mouth, Daily, # 30 tablet, Refills 11, Tot. Refills 11, Maintenance, 06/22/19 10:44:05 EDT, Route to Pharmacy Electronically, [id number], [id number] Start Date: 06/22/19 Stop Date: 06/16/20 Status: Ordered diclofenac 1% topical gel 1 application, Topically, 4 times a day, PRN Pain , Severe, right ankle and left wrist due for labs. orders in the system. please go to any [facility] lab., # 100 Gm, 0 Refills, Maintenance, 12/02/20 19:47:00 EST, Gel, [facility]/pharmacy #[id number], Partial fill... Start Date: 12/02/20 Status: Ordered Flovent HFA 110 mcg/inh inhalation aerosol 2 puffs, Inhalation, 2 times a day, # 12 Gm, 3 Refills, Maintenance, 12/28/19 12:07:00 EDT, Aerosol, [facility]/pharmacy #[id number], 167.1, cm, 12/28/19 11:35:00 EDT, [...]
--- OUTSIDE RECORDS SUMMARY | 2023-01-22 10:35 | XMS_ITS | Continuity of Care Document ---
Author Name Unknown Organization [facility] Address [address] [place] [address]- Care Team Providers Care School Plant Consultant Name Role Phone Rika Ovalles NP Primary Care Physician [place] [facility] [facility] [place]13[place] - 04/13/21 [facility] [address] [address]- Attending Physician: Rika Ovalles NP Admitting Physician: Rika Ovalles NP Allergies, Adverse Reactions, Alerts Substance Reaction Severity [...] 12/28/2011:08:00 EDT, Aerosol, Route to Pharmacy Electronically, [id number], [facility]/pharmacy #2071, 167.1, cm, 12/28/19 11:35:00 EDT, He... Start Date: 12/28/19 Status: Ordered Claritin 10 mg oral tablet 10 mg, 1, tablet, By Mouth, Daily, # 30 tablet, Refills 11, Tot. Refills 11, Maintenance, 06/22/19 10:44:05 EDT, Route to Pharmacy Electronically, [id number], [facility]/pharmacy #2071 Start Date: 06/22/19 Stop Date: 06/16/20 Status: Ordered diclofenac 1% topical gel 1 application, Topically, 4 times a day, PRN Pain , Severe, right ankle and left wrist due for labs. orders in the system. please go to any [facility] lab., # 100 Gm, 0 Refills, Maintenance, 12/02/20 19:47:00 EST, Gel, [facility]/pharmacy #[id number], Partial fill... Start Date: 12/02/20 Status: Ordered diclofenac potassium 50 mg oral tablet 1 tablet = 50 mg, By Mouth, 3 times a day, PRN for pain, PRN Foot and knee pain. To replace naproxen. Turkmen. Take with food., # 50 tablet, 1 Refills, Maintenance, 01/02/21 16:27:00 EDT, Tablet, [facility]/pharmacy #2071, Partial fill upon patient request i... Start Date: 01/02/21 Status: Ordered Flovent HFA 110 mcg/inh inhalation aerosol 2 puffs, Inhalation, 2 times a day, # 12 Gm, 3 Refills, Maintenance, 12/28/19 12:07:00 EDT, Aerosol, [facility]/pharmacy #2071, 167.1, cm, 12/28/19 11:35:00 EDT, Height, [...] meals, # 60 capsule, 0 Refills, Maintenance, 03/08/21 11:31:00 EDT, [id number], 167.1, cm, 01/31/21 14:36:00 EDT, Height, 125.45, kg, 11/28/20 15:44:00 EST, Dry Weight Start Date: 03/08/21 Status: Ordered predniSONE 20 mg oral tablet See Instructions, in serbian : one tab a day for 10 days then decrease to 1/2 tab a day for 7 d., #14 tablet, 0 Refills, Maintenance, 01/26/20 16:02:00 EDT, Tablet, [facility]/pharmacy #2071, 167.1, cm, 01/11/20 11:27:00 EDT, Height, [...]
--- OUTSIDE RECORDS SUMMARY | 2023-01-22 10:35 | XMS_ITS | Continuity of Care Document ---
Author Name Unknown Organization [facility] Address [address] [place] [address]- Care Team Providers Care Equity Structurer Name Role Phone Damian Reyes MD Primary Care Physician Encounter [facility] Date(s): 09/25/22 - 10/25/22 [facility] [address]- [place] Allergies, Adverse Reactions, Alerts Substance Reaction Severity Status Tylenol with Codeine gets red and hot Act mulu SUMAtriptan 1 Persistent Moderate Active 1Vomiting, weakness, flushing Immunizations Given and Recorded Vaccine Date Status Refusal Reason SARS-CoV-2 mRNA (fpnrero-snyw-slebo) vax 02/18/22 Given SARS-CoV-2 (COVID-19) mRNA BNT-162b2 [...] 08/04/2214:56:00 EDT, Aerosol, Route to Pharmacy Electronically, [id number], [facility] #[id number], 167, cm, 08/04/22 14:42:00... Start Date: 08/04/22 Status: Ordered Compression Stockings See Instructions, # 1 each, Maintenance, surgical, knee length 20-30 mm Hg Varicose veins of both lower extremities (I83.93) use daily to prevent worsening varicose veins/swelling LEs, 06/28/21 8:27:00 EDT, Supply Start Date: 06/28/21 Status: Ordered Home Blood Pressure Monitor See Instructions, # 1 each, Maintenance, I10 SABRINA 99 Arm Circ 37 CM, BMI 286 lbs weight 36.6, 06/05/22 11:19:00 EDT, Supply Start Date: 06/05/22 Status: Ordered hydrochlorothiazide 25 mg oral tablet 25 mg, 1, tablet, By Mouth, Daily, Increase in dose, to replace HCTZ 12.5 mg. Take in AM for high BP. Prydeinig, # 30 tablet, Refills 11, Tot. Refills 11, Maintenance, 06/05/22 11:32:00 EDT, Route to Pharmacy Electronically, [id number]... Start Date: 06/05/22 Status: Ordered montelukast 10 mg oral tablet 10 mg, 1, tablet, By Mouth, Daily, # 30 tablet, Refills 5, Tot. Refills 5, Maintenance, 06/30/22 10:47:00 EDT, Route to Pharmacy Electronically, [facility] #[id number], Partial fill upon patientrequest if the prescription [...] 11:11:00 EST, Aerosol, Route to Pharmacy Electronically, [id number], [facility] #[id number], 167, cm, 09/11/22 11:44:00 EST... Start Date: 09/23/22 Status: Ordered Tylenol 8 HR Arthritis Pain 650 mg oral tablet, extended release 1 tablet = 650 mg, By Mouth, Every 8 hours, PRN as needed for pain, for 30 days, # 90 tablet, 0 Refills, Acute 11/09/22 12:19:00 EST, 10/10/22 12:19:00 EST, ER Tablet, [facility] #[id number], Partial fill upon patient request if the prescription... Start Date: 10/10/22 Stop Date: 11/09/22 Status: Ordered wrist splints wrist splints, See [...] Team Personnel Name: Damian Reyes MD Position: [facility] Resident Member Role: PCP Address: Address: [address] [place] [address]- Name: Zoya Rodgers RN Position: [facility] Onco RN Member Role: Primary Care Nurse Name: Jayde Llanos RN Position: S RN Member Role: Primary Care Nurse Care Team Related Persons Name: RUSLAN MCCRARY Address: home [address] [address] Name: BREANA MCCLENDON Address: home [address] [facility] [address] [place] [address] Name: DONTAE BAZZI Address: home [address] [place] [address] Name: CELESTINE BAZZI Address: home [address] [place] [address]
--- OUTSIDE RECORDS SUMMARY | 2023-01-22 10:35 | XMS_ITS | Continuity of Care Document ---
Author Name Unknown Organization [facility] Address [address] [place] [address]- Care Team Providers Care Signal Maintainer Helper Name Role Phone Damian Reyes MD Primary Care Physician Encounter [facility] Date(s): 10/15/22 - 11/14/22 [facility]/[address] [address]- [place] Allergies, Adverse Reactions, Alerts Substance Reaction Severity Status Tylenol with Codeine gets red and hot Act mulu SUMAtriptan 1 Persistent Moderate Active 1Vomiting, weakness, flushing Immunizations Given and Recorded Vaccine Date Status Refusal Reason SARS-CoV-2 mRNA (dfglekk-fyww-dguwv) vax 02/18/22 Given SARS-CoV-2 (COVID-19) mRNA BNT-162b2 [...] 08/04/2214:56:00 EDT, Aerosol, Route to Pharmacy Electronically, [id number], [facility] #[id number], 167, cm, 08/04/22 14:42:00... Start Date: 08/04/22 [...] 11/06/22 15:19:00 EST, Route to Pharmacy Electronically, [facility] #[id number], Partial fill upon patient request if the [...] 06/30/22 10:47:00 EDT, Route to Pharmacy Electronically, [facility] #[id number], Partial fill upon patientrequest if the prescription [...] 11:11:00 EST, Aerosol, Route to Pharmacy Electronically, [id number], [facility] #[id number], 167, cm, 09/11/22 11:44:00 EST... Start Date: [...] Team Personnel Name: Damian Reyes MD Position: [facility] Resident Member Role: PCP Address: Address: [address] [place] [address] Name: Vishal TEJEDA, Zoya Rueda Position: [facility] Onco RN Member Role: Primary Care Nurse Name: Jayde Llanos RN Position: [facility] RN Member Role: Primary Care Nurse Care Team Related Persons Name: RUSLAN MCCRARY Address: home [address] [address] Name: BREANA MCCLENDON Address: home [address] [address] Name: DONTAE BAZZI Address: home [address] [place] [address] Name: CELESTINE BAZZI Address: home [address] [place] [address]
--- OUTSIDE RECORDS SUMMARY | 2023-01-22 10:35 | XMS_ITS | Continuity of Care Document ---
Author Name Unknown Organization [facility] Address [address] [place] [address]- Care Team Providers Care Health Assessment And Treatment Teacher Name Role Phone Damian Reyes MD Primary Care Physician Encounter [facility] [id number] Date(s): 09/30/22 - 10/31/22 [facility] [address]- Attending Physician: Raquel Almaraz Admitting Physician: Raquel Almaraz Referring Physician: Damian Reyes MD Allergies, Adverse Reactions, Alerts Substance Reaction Severity Status SUMAtriptan 1 Persistent Moderate Active Tylenol with Codeine gets red and hot Act mulu 1Vomiting, weakness, flushing Immunizations Given and Recorded Vaccine Date Status Refusal Reason SARS-CoV-2 mRNA (trusolz-fqak-qlcxk) vax 02/18/22 Given SARS-CoV-2 (COVID-19) mRNA BNT-162b2 [...] 08/04/2214:56:00 EDT, Aerosol, Route to Pharmacy Electronically, [id number], [facility] #[id number], 167, cm, 08/04/22 14:42:00... Start Date: 08/04/22 [...] mg. Take in AM for high BP. Lao, # 30 tablet, Refills 11, Tot. Refills 11, Maintenance, 06/05/22 11:32:00 EDT, Route to Pharmacy Electronically, [facility] #[id number]... Start Date: 06/05/22 Status: Ordered montelukast 10 mg oral tablet 10 mg, 1, tablet, By Mouth, Daily, # 30 tablet, Refills 5, Tot. Refills 5, Maintenance, 06/30/22 10:47:00 EDT, Route to Pharmacy Electronically, [facility] #[id number], Partial fill upon patientrequest if the prescription [...] 11:11:00 EST, Aerosol, Route to Pharmacy Electronically, [id number], [facility] #[id number], 167, cm, 09/11/22 11:44:00 EST... Start Date: 09/23/22 Status: Ordered Tylenol 8 HR Arthritis Pain 650 mg oral tablet, extended release 1 tablet = 650 mg, By Mouth, Every 8 hours, PRN as needed for pain, for 30 days, # 90 tablet, 0 Refills, Acute 11/09/22 12:19:00 EST, 10/10/22 12:19:00 EST, ER Tablet, [facility] #[id number], Partial fill upon patient request if the [...] Team Personnel Name: Damian Reyes MD Position: [facility] Resident Member Role: PCP Address: Address: [address] [place] [address]- Name: Zoya Rodgers RN Position: [facility] Onco RN Member Role: Primary Care Nurse Name: Jayde Llanos RN Position: [facility] RN Member Role: Primary Care Nurse Care Team Related Persons Name: RUSLAN MCCRARY Address: home [address] [facility] [address] [address] Name: BREANA MCCLENDON Address: home [address] [facility] [address] [place] [address] Name: DONTAE BAZZI Address: home [address] [place] [address] Name: CELESTINE BAZZI Address: home [address] [place] [address]
--- OUTSIDE RECORDS SUMMARY | 2023-01-22 10:35 | XMS_ITS | Continuity of Care Document ---
Author Name Unknown Organization [facility] Address [address] [place] [address]- Care Team Providers Care Internal Communications Specialist Name Role Phone Damian Reyes MD Primary Care Physician [place] [facility] Date(s): 12/16/22 - 01/15/23 [facility] [address]- [place] Allergies, Adverse Reactions, Alerts Substance Reaction Severity Status SUMAtriptan 1 Persistent Moderate Active Tylenol with Codeine gets red and hot Act mulu 1Vomiting, weakness, flushing Immunizations Given and Recorded Vaccine Date Status Refusal Reason [id number] 12y+ bivalent booster vax 01/02/23 Given SARS-CoV-2 mRNA (wdbrutt-xaxa-hroeh) vax 02/18/22 Given SARS-CoV-2 (COVID-19) mRNA BNT-162b2 [...] 08/04/2214:56:00 EDT, Aerosol, Route to Pharmacy Electronically, [id number], [facility] #[id number], 167, cm, 08/04/22 14:42:00... Start Date: 08/04/22 Status: Ordered AutoCPAP 8-20 with heated humidification AutoCPAP 8-20 with heated humidification, See Instructions, # 1 each, Refills 0, Tot. Refills 0, Maintenance, use overnight and naps from [facility], 12/10/22 13:36:00 EST, Compound Start Date: 12/10/22 [...] Gm, 0 Refills, Maintenance, 01/02/23 11:21:00 EDT, [facility][id number], Partial fill upon patient request if the prescription is for a schedule II opioid drug., 167, cm, 01/02/23 10:... Start Date: 01/02/23 Stop Date: 02/01/23 Status: Ordered enalapril 5 mg oral tablet 5 mg, 1, tablet, By Mouth, Daily, # 30 tablet, Refills 3, Tot. Refills 3, Maintenance, 11/06/22 15:19:00 EST, Route to Pharmacy Electronically, [facility] #[id number], Partial fill upon patient request if the [...] 06/30/22 10:47:00 EDT, Route to Pharmacy Electronically, [facility] #[id number], Partial fill upon patientrequest if the prescription [...] 11:11:00 EST, Aerosol, Route to Pharmacy Electronically, [id number], [facility] #[id number], 167, cm, 09/11/22 11:44:00 EST... Start Date: 09/23/22 Status: Ordered tiZANidine 2 mg oral tablet 1, tablet, By Mouth, 3 times a day, # 90 tablet, Refills 0, Maintenance, 01/13/23 13:01:00 EDT, Route to Pharmacy Electronically, [facility] #[id number], 167, cm, 01/09/23 16:26:00 EDT, Height, 130.9, kg, 12/17/22 10:11:00 EST, Dry Weight Start Date: 01/13/23 Status: Ordered wrist splints wrist splints, See [...] Team Personnel Name: Damian Reyes MD Position: [facility] Resident Member Role: PCP Address: Address: [address] [place] [address] Name: Zoya Rodgers RN Position: [facility] Onco RN Member Role: Primary Care Nurse Name: Jayde Llanos RN Position: [facility] RN Member Role: Primary Care Nurse Care Team Related Persons Name: RUSLAN MCCRARY Address: home [address] [address] Name: BREANA MCCLENDON Address: home [address] [facility] [address] [address] Name: DONTAE BAZZI Address: home [address] [place] [address] Name: CELESTINE BAZZI Address: home [address] [place] [address]
--- OUTSIDE RECORDS SUMMARY | 2023-01-22 10:35 | XMS_ITS | Continuity of Care Document ---
Author Name Unknown Organization [facility] Address [address] [place] [address]- Care Team Providers Care Technician Chemical Cleaning Name Role Phone Damian Reyes MD Primary Care Physician Encounter [facility] Date(s): 12/29/22 - 12/30/[address] [address]- Encounter Diagnosis Varicose veins of legs(Final) - 12/30/22 Discharge Disposition: A-D/C Home Attending Physician: Leah Bartlett DO Admitting Physician: Leah Bartlett DO Referring Physician: Not on Staff, Referring MD Allergies, Adverse Reactions, Alerts Substance Reaction Severity Status Tylenol with Codeine gets red and hot Act mulu SUMAtriptan 1 Persistent Moderate Active 1Vomiting, weakness, flushing Immunizations Given and Recorded Vaccine Date Status Refusal Reason SARS-CoV-2 mRNA (mtwxrvd-wbnl-rhylx) vax 02/18/22 Given SARS-CoV-2 (COVID-19) mRNA BNT-162b2 [...] 08/04/2214:56:00 EDT, Aerosol, Route to Pharmacy Electronically, [id number], [facility] #[id number], 167, cm, 08/04/22 14:42:00... Start Date: 08/04/22 Status: Ordered AutoCPAP 8-20 with heated humidification AutoCPAP 8-20 with heated humidification, See Instructions, # 1 each, Refills 0, Tot. Refills 0, Maintenance, [facility], 12/10/22 13:36:00 EST, Compound Start Date: 12/10/22 Status: Ordered Bilateral Class I (20-30mmHg) Thigh-high Stockings Bilateral Class I (20-30mmHg) Thigh-high Stockings, See Instructions, # 2 kit, Refills 2, Tot. Refills 2, Maintenance, Dx: I83.813. SABRINA: 99 Use daily. On in a.m. off at bedtime, 12/17/22 13:50:00 EST, Supply Start Date: 12/17/22 Status: Ordered Compression Stockings See Instructions, # [...] 11/06/22 15:19:00 EST, Route to Pharmacy Electronically, [facility] #[id number], Partial fill upon patient request if the [...] 06/30/22 10:47:00 EDT, Route to Pharmacy Electronically, [facility] #[id number], Partial fill upon patientrequest if the prescription [...] 11:11:00 EST, Aerosol, Route to Pharmacy Electronically, [id number], [facility] #[id number], 167, cm, 09/11/22 11:44:00 EST... Start Date: 09/23/22 Status: Ordered tiZANidine 2 mg oral tablet 2 mg, 1, tablet, By Mouth, 3 times a day, # 90 tablet, Refills 0, Tot. Refills 0, Maintenance, 12/11/22 13:37:00 EST, Route to Pharmacy Electronically, [facility] #[id number], Partial fill upon patient request if the [...] veins of both lower extremities Confirmed Active Results Radiology Reports * Exam Date Time Procedure Performing Provider Status 12/29/22 11:20 PM US Doppler Ext Lower Venous Left Kati Baker; Auth (Verified) Notes: (US Doppler Ext Lower Venous Left) Reason For Exam: Pain in limb;Other: RESULT: US Doppler Ext Lower Venous Left US Doppler Ext Lower Venous Left INDICATION: Left lower extremity pain and swelling for 2 weeks. Rule out venous thrombosis. COMPARISON: None IMAGING TECHNIQUE: Ultrasound of the veins from the groin through the calf was performed using grayscale, color, and spectral Doppler ultrasound assessing for complete compressibility and normal flowcharacteristics. FINDINGS: Common femoral vein: Patent. No thrombosis. Femoral vein: Patent. No thrombosis. Popliteal vein: Patent. No thrombosis. Gastrocnemius veins: The visualized portions are patent without evidence of thrombosis. Peroneal veins: The visualized portions are patent without evidence of thrombosis. Posterior tibial veins: The visualized portions are patent without evidence of thrombosis. Contralateral common femoral vein: Patent. No thrombosis. OTHER FINDINGS: IMPRESSION: No evidence of deep venous thrombosis. WSN: [id number] Ordering Physician: Gladys Silva Dictated By: Terrence Hairston MD Dictated Date/Time: 12/29/22 11:27 p Reviewed By: Terrence Hairston MD Signed By: Terrence Hairston MD Signed Date/Time: 12/29/22 11:27 pm Transcribed By: OLVIN Transcribed Date/Time: 12/29/22 11:26 pm Vital Signs Most recent to oldest [Reference Range]: 1 2 3 Weight 131 kg (12/29/22 10:41 PM) Oxygen Saturation [94-100 %] 98 % (12/30/22 6:25 AM) 97 % (12/30/22 3:12 AM) 98 % (12/29/22 10:41 PM) Pulse Rate [55-90 bpm] 88 bpm (12/30/22 6:25 AM) 85 bpm (12/30/22 3:12 AM) 90 bpm (12/29/22 10:41 PM) Blood Pressure [90-138/55-84 mm Hg] 149/87mm Hg *H* (12/30/22 6:25 AM) 148/74mm Hg *H* (12/30/22 3:12 AM) 143/78mm Hg *H* (12/29/22 10:41 PM) Respiratory Rate [16-30 br/min] 16 br/min (12/30/22 6:25 AM) 18 br/min (12/29/22 10:41 PM) Temperature [96.8-100.4 DegF] 97.9 DegF (12/30/22 3:12 AM) 99.5 DegF (12/29/22 10:41 PM) Mode of Delivery (Oxygen) Room air (12/30/22 6:25 AM) Room air (12/30/22 3:12 AM) Room air (12/29/22 10:41 PM) Blood pressure sites Arm, left (12/29/22 10:41 PM) Temperature Route Oral (12/30/22 3:12 AM) Oral (12/29/22 10:41 PM) Weight Obtained Via Patient/family state d (12/29/22 10:41 PM) Social History Social History Type Response Smoking Status Never (less than 100 in lifetime) entered on: 12/11/22 Sex Note * Dennise Carranza DO: PERFORM, SIGN, VERIFY Event Display: Patient Education Handout Authored Date: [id number] * Dennise Carranza DO: PERFORM Event Display: Patient Education Leaflets Authored Date: [id number] Varicose Veins ?? [id number] V??rices Las v??rices son venas hinchadas y dilatadas que se encuentran, con mayor frecuencia, en las piernas.??Por lo general, son de color ivan o gilma, pueden tener un aspecto abultado y tortuoso, y sobresalir visiblemente por debajo de la piel. Normalmente, las venas llevan la lucio del cuerpo al coraz??n. Las venas de las piernas tienen v??lvulas de un solo sentido que impiden que la lucio vuelva hacia atr??s. Cuando las v??lvulas son d??leighton o est??n da??adas, la lucio se acumula en las venas. [place] puede provocar que algunas venas se hinchen, tengan un aspecto abultado y se transformen en v??rices. S??ntomas Las v??rices no siempre causan s??ntomas. De haberlos, los s??ntomas pueden ser los siguientes: ???Piernas cansadas, doloridas, pesadas o con picaz??n ??? Calambres musculares en las piernas ??? Cambios en la piel, jung decoloraci??n, sequedad, enrojecimiento o sarpullidos. En los casos m??s graves, tambi??n mary llagas en la piel llamadas ??lceras venosas de la pierna. ?? Factores de riesgo Existen muchos factores que aumentan el riesgo de presentar v??rices. Por ejemplo: ??? Ser cheryle ??? Ser mayor ??? Permanecer sentado o de pie marjan mucho tiempo ??? Tener sobrepeso ??? Estar embarazada ??? Tener antecedentes familiares de v??rices ??? Tener da??o traum??earnest en las venas ??? Michaela pastillas anticonceptivas El tratamiento comienza con medidas de autoayuda (consulte a continuaci??n). Si estas medidas no ayudan, existen muchos procedimientos para reducir o quitar las v??rices.??De ser necesario, wong proveedor de atenci??n m??dica puede brindarle m??s informaci??n sobre estas opciones. ?? Cuidados en el hogar ??? Es probable que le receten medias de soporte o compresi??n. En markos naomi, aseg??rese de usarlas jung se lo hayan indicado. Estas medias ayudan a mejorar la circulaci??n de la lucio. ??? Hacer ejercicio ayuda a fortalecer los m??sculos de la pierna y a mejorar la circulaci??n de la lucio. Para obtener mayores beneficios, elija ejercicios jung caminar, nadar o andar en bicicleta. Adem??s, trate de hacer ejercicio marjan 30??minutos jung m??marvin la mayor??a de los d??as.??? Elevar las piernas permite que la gravedad ayude a que la lucio vuelva al coraz??n. Si??ntese o recu??stese con los pies por encima del nivel del coraz??n varias veces marjan el d??a o seg??n se lo hayan indicado. ??? No permanezca sentado ni parado por per??odos prolongados. Cambie de posici??n a menudo.??Tambi??n, mueva los tobillos, los dedos de los pies y las rodillas con frecuencia.??[place] tambi??n puede mejorar la circulaci??n de la lucio. ??? Si tiene sobrepeso, hable con wong proveedor de atenci??n m??dica sobre los programas para perder peso.??Mantener un peso saludable puede ayudar a reducir la tensi??n en las venas. Tambi??n puede mejorar los s??ntomas, jung la hinchaz??n y el dolor. ??? Si tiene sequedad y picaz??n, preg??ntele a wong proveedor de atenci??n m??dica sobre lociones especiales que se pueda aplicar en la piel para mejorar los s??ntomas. ?? Visita de seguimiento Programe visitas de control con wong proveedor de atenci??n m??dica o seg??n le hayan indicado.??Si le hicieron pruebas de diagn??stico por im??genes, le informar??n los resultados y si se encontr?? algo que pudiera afectar wong atenci??n m??dica. ?? Cu??ndo buscar atenci??n m??dica Llame a wong proveedor de atenci??n m??dica de inmediato ante cualquiera de las siguientes situaciones: ??? Hinchaz??n, dolor o enrojecimiento en las piernas, graves y repentinos ??? S??ntomas que empeoran o que no mejoran con el cuidado personal ??? Sangrado de las venas afectadas ?lceras en las piernas, los tobillos o los pies ??? Fiebre de 100.4?F??(38?C) o superior o seg??n la indicaci??n de wong proveedor ?? Last Reviewed Date: 2021 ?? [id number] [facility]. Todos los derechos reservados. Esta informaci??n no pretende sustituir la atenci??n m??dica profesional. S??lo wong m??dico puede diagnosticar y tratar un problema de yonathan. ?? * [facility] , CIS S: TRANSCRIBE OTerrence Martin MD: VERIFY Event Display: Result: Authored Date: US Doppler Ext Lower Venous Left INDICATION: Left lower extremity pain and swelling for 2 weeks. Rule out venous thrombosis. COMPARISON: None IMAGING TECHNIQUE: Ultrasound of the veins from the groin through the calf was performed using grayscale, color, and spectral Doppler ultrasound assessing for complete compressibility and normal flowcharacteristics. FINDINGS: Common femoral vein: Patent. No thrombosis. Femoral vein: Patent. No thrombosis. Popliteal vein: Patent. No thrombosis. Gastrocnemius veins: The visualized portions are patent without evidence of thrombosis. Peroneal veins: The visualized portions are patent without evidence of thrombosis. Posterior tibial veins: The visualized portions are patent without evidence of thrombosis. Contralateral common femoral vein: Patent. No thrombosis. OTHER FINDINGS: IMPRESSION: No evidence of deep venous thrombosis. WSN: [id number] Ordering Physician: Gladys Silva Dictated By: Terrence Hairston MD Dictated Date/Time: 12/29/22 11:27 p Reviewed By: Terrence Hairston MD Signed By: Terrence Hairston MD Signed Date/Time: 12/29/22 11:27 pm Transcribed By: OLVIN Transcribed Date/Time: 12/29/22 11:26 pm Patient Care team information Care Team Personnel Name: Damian Reyes MD Position: [facility] Resident Member Role: PCP Address: Address: [address] [place] [address] Name: Zoya Rodgers RN Position: [facility] Onco RN Member Role: Primary Care Nurse Name: Jayde Llanos RN Position: [facility] RN Member Role: Primary Care Nurse Name: Dennise Carranza DO Position: [facility] Resident Member Role: ED Resident Address: Address: [address] [place] [address] Name: Vance TEJEDA, Renetta Position: [facility] ED RN W/OE and Tasks Member Role: Patient Care Provider Name: Caridad Howell Position: [facility] ED [facility] Name: Leah Bartlett DO Position: [facility] Resident Member Role: Admitting Physician Address: Address: [address] [place] [address] Care Team Related Persons Name: RUSLAN MCCRARY Address: [address] [address] Name: BREANA MCCLENDON Address: home [address] [facility] [address] [address] Name: DONTAE BAZZI Address: home [address] [place] [address] Name: CELESTINE BAZZI Address: home [address] [place] [address]
--- OUTSIDE RECORDS SUMMARY | 2023-01-22 10:35 | XMS_ITS | Continuity of Care Document ---
Author Name Unknown Organization [facility] Address Unknown Care Team Providers Care Engineering Job Titles Name Role Phone Tejas Castillo MD Primary Care Physician Encounter [facility] [place] Date(s): 12/06/21 - 12/13/21 [facility] Encounter Diagnosis Lipoma of back(Discharge Diagnosis) - 12/06/21 Attending Physician: Terrence Alegria Referring Physician: Tejas Castillo MD Allergies, Adverse Reactions, [...] 12/28/2011:08:00 EDT, Aerosol, Route to Pharmacy Electronically, [id number], [facility]/pharmacy #[id number], 167.1, cm, 12/28/19 11:35:00 EDT, He... Start Date: 12/28/19 Status: Ordered Claritin 10 mg oral tablet 10 mg, 1, tablet, By Mouth, Daily, # 30 tablet, Refills 11, Tot. Refills 11, Maintenance, 06/22/19 10:44:05 EDT, Route to Pharmacy Electronically, [id number], [facility]/pharmacy #[id number] Start Date: 06/22/19 Stop Date: 06/16/20 [...] in the system. please go to any [facility] lab., # 100 Gm, 0 Refills, Maintenance, 12/02/20 19:47:00 EST, Gel, [facility]/pharmacy #[id number], Partial fill... Start Date: 12/02/20 Status: Ordered diclofenac potassium 50 mg oral tablet 1 tablet = 50 mg, By Mouth, 3 times a day, PRN for pain, PRN Foot and knee pain. To replace naproxen. Algerian. Take with food., # 50 tablet, 1 Refills, Maintenance, 01/02/21 16:27:00 EDT, Tablet, [facility]/pharmacy #[id number], Partial fill upon patient request i... Start Date: 01/02/21 Status: Ordered Excedrin Migraine oral tablet 2 tablet, By Mouth, Every 6 hours, PRN for headache, # 50 tablet, 0 Refills, Maintenance, 11/18/21 10:12:00 EST, Tablet, [facility]/pharmacy #[id number], Partial fill upon patient request if the prescription is for a schedule II opioid drug., 2 tablet By Mouth Niya... Start Date: 11/18/21 Status: Ordered Flovent HFA 110 mcg/inh inhalation aerosol 2 puffs, Inhalation, 2 times a day, # 12 Gm, 3 Refills, Maintenance, 12/28/19 12:07:00 EDT, Aerosol, [facility]/pharmacy #[id number], 167.1, cm, 12/28/19 11:35:00 EDT, Height, [...] 12.5 mg, By Mouth, Daily, label in armenian, # 90 capsule, 1 Refills, Maintenance, 07/22/21 11:52:00 EDT, Capsule, [facility]/pharmacy #[id number], Partial fill upon patient request if [...] 20 mg oral tablet See Instructions, in armenian : one tab a day for 10 days then decrease to 1/2 tab a day for 7 d., #14 tablet, 0 Refills, Maintenance, 01/26/20 16:02:00 EDT, Tablet, [facility]/pharmacy #[id number], 167.1, cm, 01/11/20 11:27:00 EDT, Height, 119.9, kg, 08/31/19 12:... Start Date: 01/26/20 Status: Ordered tiZANidine 2 mg oral tablet 2 mg, 1, tablet, By Mouth, 2 times a day, take only at night at first can take up to 2 times a day if tolerating, # 14 tablet, Refills 0, Tot. Refills 0, Maintenance, 07/04/21 15:33:00 EDT, Route to Pharmacy Electronically, [facility]/pharmacy #[id number], Partial... Start Date: 07/04/21 Stop Date: [...] Varicose veins of both lower extremities(Confirmed) Active Diagnosis Diagnosis Type Effective Dates Health Status Cl inical Service Informant Lipoma of back Discharge Diagnosis 12/06/21 Social History Social History Type Response Smoking Status Never (less than 100 in lifetime); Exposure to Secondhand Smoke: No entered on: 01/31/21 Sex
--- OUTSIDE RECORDS SUMMARY | 2023-01-22 10:36 | XMS_ITS | Continuity of Care Document ---
Author Name Unknown Organization [facility] Address [address] [place] [address]- Care Team Providers Care Tungsten Tender Name Role Phone Rika Ovalles NP Primary Care Physician Encounter [facility] [place] Date(s): 09/27/19 - 01/25/20 [facility] [address] [place] [address]- [facility] Attending Physician: Ilene Mendoza MD Admitting Physician: Ilene Mendoza MD Referring Physician: Rika Ovalles NP Allergies, Adverse Reactions, [...] 12/28/2011:08:00 EDT, Aerosol, Route to Pharmacy Electronically, [id number], [facility]/pharmacy #[id number], 167.1, cm, 12/28/19 11:35:00 EDT, He... Start Date: 12/28/19 Status: Ordered Claritin 10 mg oral tablet 10 mg, 1, tablet, By Mouth, Daily, # 30 tablet, Refills 11, Tot. Refills 11, Maintenance, 06/22/19 10:44:05 EDT, Route to Pharmacy Electronically, [id number], [facility]/pharmacy #[id number] Start Date: 06/22/19 Stop Date: 06/16/20 Status: Ordered Flovent HFA 110 mcg/inh inhalation aerosol 2 puffs, Inhalation, 2 times a day, # 12 Gm, 3 Refills, Maintenance, 12/28/19 12:07:00 EDT, Aerosol, [facility]/pharmacy #[id number], 167.1, cm, 12/28/19 11:35:00 EDT, [...] EST, Compound Start Date: 09/14/19 Status: Ordered Zaditor 0.025% ophthalmic solution 1 [...]
--- OUTSIDE RECORDS SUMMARY | 2023-01-22 10:36 | XMS_ITS | Continuity of Care Document ---
Author Name Unknown Organization [facility] Address Unknown Care Team Providers Care Fine Arts Teacher Name Role Phone Tejas Castillo MD Primary Care Physician [phone] [facility] [place] Date(s): 01/03/22 - 02/02/22 [facility] Allergies, Adverse Reactions, Alerts Substance Reaction Severity [...] 12/28/2011:08:00 EDT, Aerosol, Route to Pharmacy Electronically, [id number], [facility]/pharmacy #[id number], 167.1, cm, 12/28/19 11:35:00 EDT, He... Start Date: 12/28/19 Status: Ordered Claritin 10 mg oral tablet 10 mg, 1, tablet, By Mouth, Daily, # 30 tablet, Refills 11, Tot. Refills 11, Maintenance, 06/22/19 10:44:05 EDT, Route to Pharmacy Electronically, [id number], [facility]/pharmacy #[id number] Start Date: 06/22/19 Stop Date: [...] in the system. please go to any [facility] lab., # 100 Gm, 0 Refills, Maintenance, 12/02/20 19:47:00 EST, Gel, [facility]/pharmacy #[id number], Partial fill... Start Date: 12/02/20 Status: Ordered diclofenac potassium 50 mg oral tablet 1 tablet = 50 mg, By Mouth, 3 times a day, PRN for pain, PRN Foot and knee pain. To replace naproxen. Yemeni. Take with food., # 50 tablet, 1 Refills, Maintenance, 01/02/21 16:27:00 EDT, Tablet, [facility]/pharmacy #[id number], Partial fill upon patient request i... Start Date: 01/02/21 Status: Ordered Excedrin Migraine oral tablet 2 tablet, By Mouth, Every 6 hours, PRN for headache, # 50 tablet, 0 Refills, Maintenance, 11/18/21 10:12:00 EST, Tablet, [facility]/pharmacy #[id number], Partial fill upon patient request if the prescription is for a schedule II opioid drug., 2 tablet By Mouth Niya... Start Date: 11/18/21 Status: Ordered Flovent HFA 110 mcg/inh inhalation aerosol 2 puffs, Inhalation, 2 times a day, # 12 Gm, 3 Refills, Maintenance, 12/28/19 12:07:00 EDT, Aerosol, [facility]/pharmacy #[id number], 167.1, cm, 12/28/19 11:35:00 EDT, [...] 12.5 mg, By Mouth, Daily, label in lithuanian, # 90 capsule, 1 Refills, Maintenance, 07/22/21 11:52:00 EDT, Capsule, [facility]/pharmacy #207, Partial fill upon patient request if the [...] EST, Compound Start Date: 09/14/19 Status: Ordered nirmatrelvir-ritonavir 150 mg-100 mg oral tablet 1 tablet, By Mouth, 2 times a day, # 10 tablet, 0 Refills, Maintenance, 01/03/22 14:11:00 EDT, [facility] #[id number], Partial fill upon patient request if the prescription is for a schedule II opioid drug., 1 tablet By Mouth 2 times a day,x5 day... Start Date: 01/03/22 Stop Date: 01/08/22 Status: Ordered Paxlovid 150 mg-100 mg oral tablet See Instructions, 2 tabs of nirmatrelvir and 1 tab of ritonavir two times daily for five days, # 30each, 0 Refills, Maintenance, 01/03/22 15:50:00 EDT, [id number], Partial fill uponpatient request if the prescription is for a schedu... Start Date: 01/03/22 Status: Ordered predniSONE 20 mg oral tablet See Instructions, in lithuanian : one tab a day for 10 days then decrease to 1/2 tab a day for 7 d., #14 tablet, 0 Refills, Maintenance, 01/26/20 16:02:00 EDT, Tablet, [facility]/pharmacy #[id number], 167.1, cm, 01/11/20 11:27:00 EDT, [...] 07/04/21 15:33:00 EDT, Route to Pharmacy Electronically, [facility]/pharmacy #[id number], Partial... Start Date: 07/04/21 Stop Date: [...]
--- OUTSIDE RECORDS SUMMARY | 2023-01-22 10:36 | XMS_ITS | Continuity of Care Document ---
Author Name Unknown Organization [facility] Address [address] [place] [address]- Care Team Providers Care Senior Payroll Manager Name Role Phone Damian Reyes MD Primary Care Physician En[place] [facility] [place] Date(s): 05/30/22 - 09/27/22 [facility] [address] [place] [address]- Attending Physician: Savanah Briones MD Admitting Physician: Savanah Briones MD Referring Physician: Tejas Castillo MD Allergies, Adverse Reactions, Alerts Substance Reaction Severity Status Tylenol with Codeine gets red and hot Act mulu SUMAtriptan 1 Persistent Moderate Active 1Vomiting, weakness, flushing Immunizations Given and Recorded Vaccine Date Status Refusal Reason SARS-CoV-2 mRNA (ghjcqmp-fsot-ufanh) vax 02/18/22 Given SARS-CoV-2 (COVID-19) mRNA BNT-162b2 [...] 08/04/2214:56:00 EDT, Aerosol, Route to Pharmacy Electronically, [id number], [facility] #[id number], 167, cm, 08/04/22 14:42:00... Start Date: 08/04/22 [...] mg. Take in AM for high BP. Vietnamese, # 30 tablet, Refills 11, Tot. Refills 11, Maintenance, 06/05/22 11:32:00 EDT, Route to Pharmacy Electronically, [facility] #[id number]... Start Date: 06/05/22 Status: Ordered montelukast 10 mg oral tablet 10 mg, 1, tablet, By Mouth, Daily, # 30 tablet, Refills 5, Tot. Refills 5, Maintenance, 06/30/22 10:47:00 EDT, Route to Pharmacy Electronically, [facility] #[id number], Partial fill upon patientrequest if the prescription [...] 11:11:00 EST, Aerosol, Route to Pharmacy Electronically, [id number], [facility] #[id number], 167, cm, 09/11/22 11:44:00 EST... Start Date: 09/23/22 Status: Ordered Tylenol 8 HR Arthritis Pain 650 mg oral tablet, extended release 1 tablet = 650 mg, By Mouth, Every 8 hours, PRN as needed for pain, for 30 days, # 90 tablet, 0 Refills, Acute 10/11/22 12:20:00 EST, 09/11/22 12:20:00 EST, ER Tablet, [facility] #[id number], Partial fill upon patient request if the prescription... Start Date: 09/11/22 Stop Date: 10/11/22 Status: Ordered wrist splints wrist splints, See [...] Name: Damian Reyes MD Position: [facility] Resident Member Role: PCP Address: Address: [address] [place] [id number] Name: Zoya Rodgers RN Position: [facility] Onco RN Member Role: Primary Care Nurse Name: Jayde Llanos RN Position: [facility] RN Member Role: Primary Care Nurse Care Team Related Persons Name: RUSLAN MCCRARY Address: home [address] [address] Name: BREANA MCCLENDON Address: home [address] [place] [address] Name: DONTAE BAZZI Address: home [address] [place] [address] Name: CELESTINE BAZZI Address: home [address] [place] [address]
--- OUTSIDE RECORDS SUMMARY | 2023-01-22 10:36 | XMS_ITS | Continuity of Care Document ---
Author Name Unknown Organization [facility] Address [address] [place] [address]- Care Team Providers Care Residential Recycle Driver Name Role Phone Rika Ovalles NP Primary Care Physician Encounter [facility] [place] Date(s): 01/05/21 - 02/10/[address] [address] Attending Physician: Rika Ovalles NP Admitting Physician: Rika Ovalles NP Referring Physician: Rika Ovalles NP Allergies, Adverse [...] 12/28/2011:08:00 EDT, Aerosol, Route to Pharmacy Electronically, [id number], [facility]/pharmacy #[id number], 167.1, cm, 12/28/19 11:35:00 EDT, He... Start Date: 12/28/19 Status: Ordered baclofen 10 mg oral tablet 10 mg, 1, tablet, By Mouth, 3 times a day, # 63 tablet, Refills 0, Tot. Refills 0, Maintenance, 01/08/21 9:14:00 EDT, Route to Pharmacy Electronically, [facility]/pharmacy #[id number], Partial fill upon patient request if the prescription is for a schedule II opio... Start Date: 01/08/21 Stop Date: 01/29/21 Status: Ordered Claritin 10 mg oral tablet 10 mg, 1, tablet, By Mouth, Daily, # 30 tablet, Refills 11, Tot. Refills 11, Maintenance, 06/22/19 10:44:05 EDT, Route to Pharmacy Electronically, [id number], [facility]/pharmacy #[id number] Start Date: 06/22/19 Stop Date: 06/16/20 Status: Ordered diclofenac 1% topical gel 1 application, Topically, 4 times a day, PRN Pain , Severe, right ankle and left wrist due for labs. orders in the system. please go to any [facility] lab., # 100 Gm, 0 Refills, Maintenance, 12/02/20 19:47:00 EST, Gel, [id number], Partial fill... Start Date: 12/02/20 Status: Ordered diclofenac potassium 50 mg oral tablet 1 tablet = 50 mg, By Mouth, 3 times a day, PRN for pain, PRN Foot and knee pain. To replace naproxen. Andorran. Take with food., # 50 tablet, 1 Refills, Maintenance, 01/02/21 16:27:00 EDT, Tablet, [facility]/pharmacy #[id number], Partial fill upon patient request i... Start Date: 01/02/21 Status: Ordered Flovent HFA 110 mcg/inh inhalation aerosol 2 puffs, Inhalation, 2 times a day, # 12 Gm, 3 Refills, Maintenance, 12/28/19 12:07:00 EDT, Aerosol, [facility]/pharmacy #[id number], 167.1, cm, 12/28/19 11:35:00 EDT, Height, [...] Refills, Maintenance, 02/06/21 8:15:00 EDT, [id number], 167.1, cm, 01/31/21 14:36:00 EDT, Height, 125.45, kg, 11/28/20 15:44:00 EST, Dry Weight Start Date: 02/06/21 Status: Ordered predniSONE 20 mg oral tablet See Instructions, in romanian : one tab a day for 10 days then decrease to 1/2 tab a day for 7 d., #14 tablet, 0 Refills, Maintenance, 01/26/20 16:02:00 EDT, Tablet, [facility]/pharmacy #[id number], 167.1, cm, 01/11/20 11:27:00 EDT, Height, [...]
--- OUTSIDE RECORDS SUMMARY | 2023-01-22 10:36 | XMS_ITS | Continuity of Care Document ---
Author Name Unknown Organization [facility] Address [address] [place] [address] [address] [place] [address]- Care Team Providers Care Architectural Inspector Name Role Phone Damian Reyes MD Primary Care Physician [phone] Encounter [facility] [place] Date(s): 11/12/22 - 12/12/[address] [place] [address]- Attending Physician: Admmary kay, Abdullahi8 Admitting Physician: AdmtrPoonam Referring Physician: Admtr, Ar8 Allergies, Adverse Reactions, Alerts Substance Reaction Severity Status Tylenol with Codeine gets red and hot Act mulu SUMAtriptan 1 Persistent Moderate Active 1Vomiting, weakness, flushing Immunizations Given and Recorded Vaccine Date Status Refusal Reason SARS-CoV-2 mRNA (nbkpfaz-oteu-wvphp) vax 02/18/22 Given SARS-CoV-2 (COVID-19) mRNA BNT-162b2 [...] 08/04/2214:56:00 EDT, Aerosol, Route to Pharmacy Electronically, [id number], [facility][id number], 167, cm, 08/04/22 14:42:00... Start Date: 08/04/22 Status: Ordered AutoCPAP 8-20 with heated humidification AutoCPAP 8-20 with heated humidification, See Instructions, # 1 each, Refills 0, Tot. Refills 0, Maintenance, use overnight and naps from [facility], 12/10/22 13:36:00 EST, Compound Start Date: 12/10/22 Status: Ordered Compression Stockings See Instructions, # [...] 11/06/22 15:19:00 EST, Route to Pharmacy Electronically, [facility] #[id number], Partial fill upon patient request if the [...] 06/30/22 10:47:00 EDT, Route to Pharmacy Electronically, [facility] #[id number], Partial fill upon patientrequest if the prescription [...] 11:11:00 EST, Aerosol, Route to Pharmacy Electronically, [id number], [facility] #[id number], 167, cm, 09/11/22 11:44:00 EST... Start Date: 09/23/22 Status: Ordered tiZANidine 2 mg oral tablet 2 mg, 1, tablet, By Mouth, 3 times a day, # 90 tablet, Refills 0, Tot. Refills 0, Maintenance, 12/11/22 13:37:00 EST, Route to Pharmacy Electronically, [facility] #[id number], Partial fill upon patient request if the [...] 100 in lifetime) entered on: 12/11/22 Sex Patient Care team information Care Team Personnel Name: Damian Reyes MD Position: [facility] Resident Member Role: PCP Address: Address: [address] [place] [address]- Name: Zoya Rodgers RN Position: S [facility] RN Member Role: Primary Care Nurse Name: Jayde Llanos RN Position: S RN Member Role: Primary Care Nurse Care Team Related Persons Name: RUSLAN MCCRARY Address: home [address] [address] Name: BREANA MCCLENDON Address: home [address], [place] [address] Name: DONTAE BAZZI Address: home [address] [place] [address] Name: CELESTINE BAZZI Address: home [address] [place] [address]
--- OUTSIDE RECORDS SUMMARY | 2023-01-22 10:36 | XMS_ITS | Continuity of Care Document ---
Author Name Unknown Organization [facility] Address [address] [place] [address]- Care Team Providers Care Communications Officer Name Role Phone Jonathan CROSS, Tejas Primary Care Physician Encounter [facility] [place] Date(s): 10/23/21 - 11/22/[address] [address] Attending Physician: Admtr, Poonam Admitting Physician: Admtr, Abdullahi8 Referring Physician: Admtr, Ar8 Allergies, Adverse Reactions, [...] 12/28/2011:08:00 EDT, Aerosol, Route to Pharmacy Electronically, [id number], [facility]/pharmacy #2071, 167.1, cm, 12/28/19 11:35:00 EDT, He... Start Date: 12/28/19 Status: Ordered Claritin 10 mg oral tablet 10 mg, 1, tablet, By Mouth, Daily, # 30 tablet, Refills 11, Tot. Refills 11, Maintenance, 06/22/19 10:44:05 EDT, Route to Pharmacy Electronically, [id number], [facility]/pharmacy #[id number] Start Date: 06/22/19 Stop Date: 06/16/20 [...] in the system. please go to any [facility] lab., # 100 Gm, 0 Refills, Maintenance, 12/02/20 19:47:00 EST, Gel, [facility]/pharmacy #[id number], Partial fill... Start Date: 12/02/20 Status: Ordered diclofenac potassium 50 mg oral tablet 1 tablet = 50 mg, By Mouth, 3 times a day, PRN for pain, PRN Foot and knee pain. To replace naproxen. Citizen [place]. Take with food., # 50 tablet, 1 Refills, Maintenance, 01/02/21 16:27:00 EDT, Tablet, [facility]/pharmacy #[id number], Partial fill upon patient request i... Start Date: 01/02/21 Status: Ordered Excedrin Migraine oral tablet 2 tablet, By Mouth, Every 6 hours, PRN for headache, # 50 tablet, 0 Refills, Maintenance, 11/18/21 10:12:00 EST, Tablet, [facility]/pharmacy #[id number], Partial fill upon patient request if the prescription is for a schedule II opioid drug., 2 tablet By Mouth Niya... Start Date: 11/18/21 Status: Ordered Flovent HFA 110 mcg/inh inhalation aerosol 2 puffs, Inhalation, 2 times a day, # 12 Gm, 3 Refills, Maintenance, 12/28/19 12:07:00 EDT, Aerosol, [facility]/pharmacy #[id number], 167.1, cm, 12/28/19 11:35:00 EDT, Height, [...] 12.5 mg, By Mouth, Daily, label in chinese, # 90 capsule, 1 Refills, Maintenance, 07/22/21 11:52:00 EDT, Capsule, [facility]/pharmacy #[id number], Partial fill upon patient request if [...] 20 mg oral tablet See Instructions, in chinese : one tab a day for 10 days then decrease to 1/2 tab a day for 7 d., #14 tablet, 0 Refills, Maintenance, 01/26/20 16:02:00 EDT, Tablet, [facility]/pharmacy #[id number], 167.1, cm, 01/11/20 11:27:00 EDT, Height, 119.9, kg, 08/31/19 12:... Start Date: 01/26/20 Status: Ordered tiZANidine 2 mg oral tablet 2 mg, 1, tablet, By Mouth, 2 times a day, take only at night at first can take up to 2 times a day if tolerating, # 14 tablet, Refills 0, Tot. Refills 0, Maintenance, 07/04/21 15:33:00 EDT, Route to Pharmacy Electronically, [facility]/pharmacy #2071, Partial... Start Date: 07/04/21 Stop Date: [...]
--- OUTSIDE RECORDS SUMMARY | 2023-01-22 10:36 | XMS_ITS | Continuity of Care Document ---
Author Name Unknown Organization [facility] Address [address] [place] [address]- Care Team Providers Care Business Process Specialist Name Role Phone Josr MARTÍNEZ, Rika Yanes Primary Care Physician Encounter [facility] [place] Date(s): 03/12/21 - 04/11/21 [facility]/[address] [address]- Allergies, Adverse Reactions, Alerts Substance Reaction Severity [...] 12/28/2011:08:00 EDT, Aerosol, Route to Pharmacy Electronically, [id number], [facility]/pharmacy #[id number], 167.1, cm, 12/28/19 11:35:00 EDT, He... Start Date: 12/28/19 Status: Ordered Claritin 10 mg oral tablet 10 mg, 1, tablet, By Mouth, Daily, # 30 tablet, Refills 11, Tot. Refills 11, Maintenance, 06/22/19 10:44:05 EDT, Route to Pharmacy Electronically, [id number], [facility]/pharmacy #[id number] Start Date: 06/22/19 Stop Date: 06/16/20 Status: Ordered diclofenac 1% topical gel 1 application, Topically, 4 times a day, PRN Pain , Severe, right ankle and left wrist due for labs. orders in the system. please go to any [facility] lab., # 100 Gm, 0 Refills, Maintenance, 12/02/20 19:47:00 EST, Gel, [facility]/pharmacy #[id number], Partial fill... Start Date: 12/02/20 Status: Ordered diclofenac potassium 50 mg oral tablet 1 tablet = 50 mg, By Mouth, 3 times a day, PRN for pain, PRN Foot and knee pain. To replace naproxen. [place]an. Take with food., # 50 tablet, 1 Refills, Maintenance, 01/02/21 16:27:00 EDT, Tablet, [facility]/pharmacy #[id number], Partial fill upon patient request i... Start Date: 01/02/21 Status: Ordered Flovent HFA 110 mcg/inh inhalation aerosol 2 puffs, Inhalation, 2 times a day, # 12 Gm, 3 Refills, Maintenance, 12/28/19 12:07:00 EDT, Aerosol, [facility]/pharmacy #[id number], 167.1, cm, 12/28/19 11:35:00 EDT, Height, [...] Refills, Maintenance, 03/08/21 11:31:00 EDT, [id number], 167.1, cm, 01/31/21 14:36:00 EDT, Height, 125.45, kg, 11/28/20 15:44:00 EST, Dry Weight Start Date: 03/08/21 Status: Ordered predniSONE 20 mg oral tablet See Instructions, in azeri : one tab a day for 10 days then decrease to 1/2 tab a day for 7 d., #14 tablet, 0 Refills, Maintenance, 01/26/20 16:02:00 EDT, Tablet, [facility]/pharmacy #[id number], 167.1, cm, 01/11/20 11:27:00 EDT, Height, [...]
--- OUTSIDE RECORDS SUMMARY | 2023-01-22 10:36 | XMS_ITS | Continuity of Care Document ---
Author Name Unknown Organization [facility] Address Unknown Care Team Providers Care Engineering Drafter Name Role Phone Tejas Castillo MD Primary Care Physician En[place] [facility] [place] Date(s): 07/24/21 - 08/23/21 [facility] Allergies, Adverse Reactions, Alerts Substance Reaction Severity [...] 12/28/2011:08:00 EDT, Aerosol, Route to Pharmacy Electronically, [id number], [facility]/pharmacy #[id number], 167.1, cm, 12/28/19 11:35:00 EDT, He... Start Date: 12/28/19 Status: Ordered Claritin 10 mg oral tablet 10 mg, 1, tablet, By Mouth, Daily, # 30 tablet, Refills 11, Tot. Refills 11, Maintenance, 06/22/19 10:44:05 EDT, Route to Pharmacy Electronically, [id number], [facility]/pharmacy #207 Start Date: 06/22/19 Stop Date: 06/16/20 Status: [...] in the system. please go to any [facility] lab., # 100 Gm, 0 Refills, Maintenance, 12/02/20 19:47:00 EST, Gel, [facility]/pharmacy #207, Partial fill... Start Date: 12/02/20 Status: Ordered diclofenac potassium 50 mg oral tablet 1 tablet = 50 mg, By Mouth, 3 times a day, PRN for pain, PRN Foot and knee pain. To replace naproxen. Omani. Take with food., # 50 tablet, 1 Refills, Maintenance, 01/02/21 16:27:00 EDT, Tablet, [facility]/pharmacy #207, Partial fill upon patient request i... Start [...] 12.5 mg, By Mouth, Daily, label in botswanan, # 90 capsule, 1 Refills, Maintenance, 07/22/21 11:52:00 EDT, Capsule, [id number], Partial fill upon patient request if the prescriptionis for a schedule II opioid drug., 167.1, cm, 07/22... Start Date: 07/22/21 Status: Ordered ibuprofen 800 mg oral tablet 800 mg, 1, tablet, By Mouth, 3 times a day, PRN, do not take with other NSAIDs with food or milk, #40 tablet, Refills 0, Tot. Refills 0, Acute 09/30/21 15:42:00 EST, for pain, 05/30/21 15:41:00 EDT,Route to Pharmacy Electronically, [facility] Start Date: 05/30/21 Stop Date: 09/30/21 Status: Ordered lidocaine 5% topical cream 1 application, Topically, 3 times a day, # 45 Gm, 0 Refills, Acute 09/17/21 18:30:00 EST, 07/17/21 18:29:00 EDT, Cream, [id number], Partial fill upon patient request if the prescription is for a schedule II opioid drug., 1 application Topicall... Start Date: 07/17/21 Stop Date: 09/17/21 Status: Ordered lidocaine 5% topical cream 1 application, Topically, 3 times a day, label in botswanan, # 45 Gm, 0 Refills, Acute 09/22/21 12:02:00 EST, 09/17/21 18:30:00 EST, Cream, [facility]/pharmacy #[id number], Partial fill upon patient request if the prescription is for a schedule II opioid drug., 1 ap... Start Date: 09/17/21 Stop Date: 09/22/21 Status: Ordered Nebulizer/Compressor See Instructions, # 1 each, Maintenance, use as needed, 09/14/19 11:33:05 EST, Compound Start Date: 09/14/19 Status: Ordered Nebulizer/Compressor See Instructions, # 1 each, Maintenance, as directed. with all supplies including tubing and mouthpiece, 09/14/19 11:53:40 EST, Compound Start Date: 09/14/19 Status: Ordered predniSONE 20 mg oral tablet See Instructions, in botswanan : one tab a day for 10 days then decrease to 1/2 tab a day for 7 d., #14 tablet, 0 Refills, Maintenance, 01/26/20 16:02:00 EDT, Tablet, [facility]/pharmacy #[id number], 167.1, cm, 01/11/20 11:27:00 EDT, [...] 07/04/21 15:33:00 EDT, Route to Pharmacy Electronically, [facility]/pharmacy #[id number], Partial... Start Date: 07/04/21 Stop Date: 07/11/21 Status: Ordered Tylenol Extra Strength 500 mg oral tablet 2 tablet = 1,000 mg, By Mouth, 3 times a day, PRN for fever, not to exceed 3000 mg/day label in botswanan, # 120 tablet, 1 Refills, Acute 09/30/21 15:43:00 EST, 05/30/21 15:43:00 EDT, Tablet, [facility]/pharmacy #[id number], Partial fill upon patient request if the... Start Date: 05/30/21 Stop Date: 09/30/21 Status: Ordered wrist splints wrist splints, See [...] cancer(Confirmed) Active Morbid obesity(Confirmed) Active Prediabetes(Confirmed) Active Acquired vaginal adhesions(Confirmed) Active Varicose veins of both lower extremities(Confirmed) Active Social History Social History Type Response Smoking Status Never (less than 100 in lifetime); Exposure to Secondhand Smoke: No entered on: 01/31/21 Sex
--- OUTSIDE RECORDS SUMMARY | 2023-01-22 10:36 | XMS_ITS | Continuity of Care Document ---
Author Name Unknown Organization [facility] Address [address] [address]- Care Team Providers Care Packager Hand Name Role Phone Damian Reyes MD Primary Care Physician [phone] [id number] Date(s[facility] 12/08/22 - 01/07/[address] [address]- Allergies, Adverse Reactions, Alerts Substance Reaction Severity Status Tylenol with Codeine gets red and hot Act mulu SUMAtriptan 1 Persistent Moderate Active 1Vomiting, weakness, flushing Immunizations Given and Recorded Vaccine Date Status Refusal Reason [id number] 12y+ bivalent booster vax 01/02/23 Given SARS-CoV-2 mRNA (rwdshza-[id number]) vax 02/18/22 Given SARS-CoV-2 (COVID-19) mRNA BNT-162b2 [...] 08/04/2214:56:00 EDT, Aerosol, Route to Pharmacy Electronically, [id number], 167, cm, 08/04/22 14:42:00... Start Date: 08/04/22 [...] Gm, 0 Refills, Maintenance, 01/02/23 11:21:00 EDT, [facility] #[id number], Partial fill upon patient request if the prescription is for a schedule II opioid drug., 167, cm, 01/02/23 10:... Start Date: 01/02/23 Stop Date: 02/01/23 Status: Ordered enalapril 5 mg oral tablet 5 mg, 1, tablet, By Mouth, Daily, # 30 tablet, Refills 3, Tot. Refills 3, Maintenance, 11/06/22 15:19:00 EST, Route to Pharmacy Electronically, [facility] #[id number], Partial fill upon patient request if the [...] 06/30/22 10:47:00 EDT, Route to Pharmacy Electronically, [facility] #[id number], Partial fill upon patientrequest if the prescription [...] 11:11:00 EST, Aerosol, Route to Pharmacy Electronically, [id number], [facility] #[id number], 167, cm, 09/11/22 11:44:00 EST... Start Date: 09/23/22 Status: Ordered tiZANidine 2 mg oral tablet 2 mg, 1, tablet, By Mouth, 3 times a day, # 90 tablet, Refills 0, Tot. Refills 0, Maintenance, 12/11/22 13:37:00 EST, Route to Pharmacy Electronically, [facility] #[id number], Partial fill upon patient request if the [...] Team Personnel Name: Damian Reyes MD Position: [facility] Resident Member Role: PCP Address: Address: [address] [place] [id number] Name: Zoya Rodgers RN Position: [facility] Onco RN Member Role: Primary Care Nurse Name: Jayde Llanos RN Position: [facility] RN Member Role: Primary Care Nurse Care Team Related Persons Name: RUSLAN MCCRARY Address: [address] [address] Name: BREANA MCCLENDON Address: home [address] [facility] [address] [place] [address] Name: DONTAE BAZZI Address: home [address] [place] [address] Name: CELESTINE BAZZI Address: home [address] [place] [address]
--- OUTSIDE RECORDS SUMMARY | 2023-01-22 10:36 | XMS_ITS | Continuity of Care Document ---
Author Name Unknown Organization [facility] Address Unknown Care Team Providers Care Locker Room Manager Name Role Phone Lsia Isaac NP Primary Care Physician Encounter [facility] [place] Date(s): 06/28/21 - 07/28/21 [facility] Allergies, Adverse Reactions, Alerts Substance Reaction Severity [...] 0 Refills, Maintenance, 11/18/19 14:20:00 EST, Solution, [facility]/pharmacy #[id number], 167.1, cm, 11/18/19 13:45:00 EST, Height, [...] 12/28/2011:08:00 EDT, Aerosol, Route to Pharmacy Electronically, [id number], [facility]/pharmacy #[id number], 167.1, cm, 12/28/19 11:35:00 EDT, He... Start Date: 12/28/19 Status: Ordered Claritin 10 mg oral tablet 10 mg, 1, tablet, By Mouth, Daily, # 30 tablet, Refills 11, Tot. Refills 11, Maintenance, 06/22/19 10:44:05 EDT, Route to Pharmacy Electronically, [id number], [facility]/pharmacy #[id number] Start Date: 06/22/19 Stop Date: [...] in the system. please go to any [facility] lab., # 100 Gm, 0 Refills, Maintenance, 12/02/20 19:47:00 EST, Gel, [facility]/pharmacy #[id number], Partial fill... Start Date: 12/02/20 Status: Ordered diclofenac potassium 50 mg oral tablet 1 tablet = 50 mg, By Mouth, 3 times a day, PRN for pain, PRN Foot and knee pain. To replace naproxen. Ethiopian. Take with food., # 50 tablet, 1 Refills, Maintenance, 01/02/21 16:27:00 EDT, Tablet, [facility]/pharmacy #[id number], Partial fill upon patient request i... Start Date: 01/02/21 Status: Ordered Flovent HFA 110 mcg/inh inhalation aerosol 2 puffs, Inhalation, 2 times a day, # 12 Gm, 3 Refills, Maintenance, 12/28/19 12:07:00 EDT, Aerosol, [facility]/pharmacy #[id number], 167.1, cm, 12/28/19 11:35:00 EDT, [...] 12.5 mg, By Mouth, Daily, label in grenadian, # 90 capsule, 1 Refills, Maintenance, 07/22/21 11:52:00 EDT, Capsule, [facility]/pharmacy #[id number], Partial fill upon patient request if [...] pain, 05/30/21 15:41:00 EDT,Route to Pharmacy Electronically, [facility]/pharmacy #... Start Date: 05/30/21 Stop Date: 09/30/21 Status: Ordered lidocaine 5% topical cream 1 application, Topically, 3 times a day, # 45 Gm, 0 Refills, Acute 09/17/21 18:30:00 EST, 07/17/21 18:29:00 EDT, Cream, [facility]/pharmacy #[id number], Partial fill upon patient request if the prescription is for a schedule II opioid drug., 1 application Topicall... Start Date: 07/17/21 Stop Date: 09/17/21 Status: Ordered lidocaine 5% topical cream 1 application, Topically, 3 times a day, label in grenadian, # 45 Gm, 0 Refills, Acute 09/22/21 12:02:00 EST, 09/17/21 18:30:00 EST, Cream, [facility]/pharmacy #[id number], Partial fill upon patient request if [...] 20 mg oral tablet See Instructions, in grenadian : one tab a day for 10 days then decrease to 1/2 tab a day for 7 d., #14 tablet, 0 Refills, Maintenance, 01/26/20 16:02:00 EDT, Tablet, [facility]/pharmacy #[id number], 167.1, cm, 01/11/20 11:27:00 EDT, [...] 07/04/21 15:33:00 EDT, Route to Pharmacy Electronically, [facility]/pharmacy #[id number], Partial... Start Date: 07/04/21 Stop Date: 07/11/21 Status: Ordered Tylenol Extra Strength 500 mg oral tablet 2 tablet = 1,000 mg, By Mouth, 3 times a day, PRN for fever, not to exceed 3000 mg/day label in grenadian, # 120 tablet, 1 Refills, Acute 09/30/21 15:43:00 EST, 05/30/21 15:43:00 EDT, Tablet, [facility]/pharmacy #[id number], Partial fill upon patient request if [...]
--- OUTSIDE RECORDS SUMMARY | 2023-01-22 10:36 | XMS_ITS | Continuity of Care Document ---
Author Name Unknown Organization [facility] Address [address] [place] [address]- Care Team Providers Care Inking Machine Tender Name Role Phone Lisa Isaac NP Primary Care Physician ( [phone] Encounter [facility] Date(s): 04/18/21 - 05/18/21 [facility]/[address] [address] Allergies, Adverse Reactions, Alerts Substance Reaction Severity [...] 12/28/2011:08:00 EDT, Aerosol, Route to Pharmacy Electronically, [id number], [facility]/pharmacy #[id number], 167.1, cm, 12/28/19 11:35:00 EDT, He... Start Date: 12/28/19 Status: Ordered Claritin 10 mg oral tablet 10 mg, 1, tablet, By Mouth, Daily, # 30 tablet, Refills 11, Tot. Refills 11, Maintenance, 06/22/19 10:44:05 EDT, Route to Pharmacy Electronically, [id number], [facility]/pharmacy #[id number] Start Date: 06/22/19 Stop Date: 06/16/20 Status: Ordered diclofenac 1% topical gel 1 application, Topically, 4 times a day, PRN Pain , Severe, right ankle and left wrist due for labs. orders in the system. please go to any [facility] lab., # 100 Gm, 0 Refills, Maintenance, 12/02/20 19:47:00 EST, Gel, [facility]/pharmacy #[id number], Partial fill... Start Date: 12/02/20 Status: Ordered diclofenac potassium 50 mg oral tablet 1 tablet = 50 mg, By Mouth, 3 times a day, PRN for pain, PRN Foot and knee pain. To replace naproxen. Ivorian. Take with food., # 50 tablet, 1 [...] Refills, Maintenance, 03/08/21 11:31:00 EDT, [id number], 167.1, cm, 01/31/21 14:36:00 EDT, Height, 125.45, kg, 11/28/20 15:44:00 EST, Dry Weight Start Date: 03/08/21 Status: Ordered predniSONE 20 mg oral tablet See Instructions, in salvadorean : one tab a day for 10 [...]
--- OUTSIDE RECORDS SUMMARY | 2023-01-22 10:36 | XMS_ITS | Continuity of Care Document ---
Author Name Unknown Organization [facility] Address [address] [place] [address]- Care Team Providers Care Energy Broker Name Role Phone Rika Ovalles NP Primary Care Physician [phone] [id number] Date(s): 12/03/18 - 07/19/20 [facility] [address] [place] [address] [facility] Discharge Disposition: A-D/C Home Attending Physician: Thomas Felix MD Admitting Physician: Thomas Felix MD Referring Physician: Rika Ovalles NP Allergies, [...] 12/28/2011:08:00 EDT, Aerosol, Route to Pharmacy Electronically, [id number], [facility]/pharmacy #[id number], 167.1, cm, 12/28/19 11:35:00 EDT, He... Start Date: 12/28/19 Status: Ordered Claritin 10 mg oral tablet 10 mg, 1, tablet, By Mouth, Daily, # 30 tablet, Refills 11, Tot. Refills 11, Maintenance, 06/22/19 10:44:05 EDT, Route to Pharmacy Electronically, [id number], [facility]/pharmacy #[id number] Start Date: 06/22/19 Stop Date: 06/16/20 Status: Ordered Flovent HFA 110 mcg/inh inhalation aerosol 2 puffs, Inhalation, 2 times a day, # 12 Gm, 3 Refills, Maintenance, 12/28/19 12:07:00 EDT, Aerosol, [facility]/pharmacy #[id number], 167.1, cm, 12/28/19 11:35:00 EDT, [...] 20 mg oral tablet See Instructions, in kiswahili : one tab a day for 10 [...]
--- OUTSIDE RECORDS SUMMARY | 2023-01-22 10:36 | XMS_ITS | Continuity of Care Document ---
Author Name Unknown Organization [facility] Address [address] [place] [address]- Care Team Providers Care Community Health Navigator Name Role Phone Josr MARTÍNEZ, Rika Yanes Primary Care Physician Encounter [facility] [place] Date(s): 09/21/20 - 10/21/20 [facility]/[address] [address]- Allergies, Adverse Reactions, Alerts Substance Reaction Severity [...] 12/28/2011:08:00 EDT, Aerosol, Route to Pharmacy Electronically, [id number], [facility]/pharmacy #[id number], 167.1, cm, 12/28/19 11:35:00 EDT, He... Start Date: 12/28/19 Status: Ordered Claritin 10 mg oral tablet 10 mg, 1, tablet, By Mouth, Daily, # 30 tablet, Refills 11, Tot. Refills 11, Maintenance, 06/22/19 10:44:05 EDT, Route to Pharmacy Electronically, [id number], [id number] Start Date: 06/22/19 Stop Date: 06/16/20 Status: Ordered diclofenac 1% topical gel 1 application, Topically, 4 times a day, PRN Pain , Severe, right ankle and left wrist due for labs. orders in the system. please go to any [facility] lab., # 100 Gm, 0 Refills, Maintenance, 10/02/20 11:22:00 EST, Gel, [facility]/pharmacy #[id number], Partial fill... Start Date: 10/02/20 Status: Ordered Flovent HFA 110 mcg/inh inhalation aerosol 2 puffs, Inhalation, 2 times a day, # 12 Gm, 3 Refills, Maintenance, 12/28/19 12:07:00 EDT, Aerosol, [facility]/pharmacy #[id number], 167.1, cm, 12/28/19 11:35:00 EDT, Height, [...] 20 mg oral tablet See Instructions, in british virgin islander : one tab a day for 10 [...]
--- OUTSIDE RECORDS SUMMARY | 2023-01-22 10:36 | XMS_ITS | Continuity of Care Document ---
Author Name Unknown Organization [facility] Address [address] [place] [address]- Care Team Providers Care Broomcorn Press Feeder Name Role Phone Rika Ovalles NP Primary Care Physician [place] [facility] [place]14/[place] - 02/11/[address] [address] Attending Physician: Dimple Berry MD Admitting Physician: Dimple Berry MD Referring Physician: Rika Ovalles NP Allergies, [...] 12/28/2011:08:00 EDT, Aerosol, Route to Pharmacy Electronically, [id number], [facility]/pharmacy #[id number], 167.1, cm, 12/28/19 11:35:00 EDT, He... Start Date: 12/28/19 Status: Ordered Claritin 10 mg oral tablet 10 mg, 1, tablet, By Mouth, Daily, # 30 tablet, Refills 11, Tot. Refills 11, Maintenance, 06/22/19 10:44:05 EDT, Route to Pharmacy Electronically, [id number], [facility]/pharmacy #[id number] Start Date: 06/22/19 Stop Date: 06/16/20 Status: Ordered Flovent HFA 110 mcg/inh inhalation aerosol 2 puffs, Inhalation, 2 times a day, # 12 Gm, 3 Refills, Maintenance, 12/28/19 12:07:00 EDT, Aerosol, [facility]/pharmacy #[id number], 167.1, cm, 12/28/19 11:35:00 [...] 20 mg oral tablet See Instructions, in angolan : one tab a day for 10 [...]
--- OUTSIDE RECORDS SUMMARY | 2023-01-22 10:36 | XMS_ITS | Continuity of Care Document ---
Author Name Unknown Organization [facility] Address Unknown Care Team Providers Care Senior Sales Associate Name Role Phone Tejas Castillo MD Primary Care Physician Encounter [facility] Date(s): 08/30/21 - 09/06/21 [facility] Encounter Diagnosis Lipoma of back(Discharge Diagnosis) - 08/30/21 Attending Physician: Terrence Alegria Referring Physician: Marlin DROP MACHINE OPERATOR, Lisa Allergies, Adverse Reactions, Alerts Substance Reaction Severity [...] 12/28/2011:08:00 EDT, Aerosol, Route to Pharmacy Electronically, [id number], [facility]/pharmacy #[id number], 167.1, cm, 12/28/19 11:35:00 EDT, He... Start Date: 12/28/19 Status: Ordered Claritin 10 mg oral tablet 10 mg, 1, tablet, By Mouth, Daily, # 30 tablet, Refills 11, Tot. Refills 11, Maintenance, 06/22/19 10:44:05 EDT, Route to Pharmacy Electronically, [id number], [facility]/pharmacy #[id number] Start Date: 06/22/19 Stop Date: [...] in the system. please go to any [facility] lab., # 100 Gm, 0 Refills, Maintenance, 12/02/20 19:47:00 EST, Gel, [facility]/pharmacy #[id number], Partial fill... Start Date: 12/02/20 Status: Ordered diclofenac potassium 50 mg oral tablet 1 tablet = 50 mg, By Mouth, 3 times a day, PRN for pain, PRN Foot and knee pain. To replace naproxen. Croatian. Take with food., # 50 tablet, 1 Refills, Maintenance, 01/02/21 16:27:00 EDT, Tablet, [facility]/pharmacy #[id number], Partial fill upon patient request i... Start Date: 01/02/21 Status: Ordered Flovent HFA 110 mcg/inh inhalation aerosol 2 puffs, Inhalation, 2 times a day, # 12 Gm, 3 Refills, Maintenance, 12/28/19 12:07:00 EDT, Aerosol, [facility]/pharmacy #[id number], 167.1, cm, 12/28/19 11:35:00 EDT, [...] 12.5 mg, By Mouth, Daily, label in samoan, # 90 capsule, 1 Refills, Maintenance, 07/22/21 11:52:00 EDT, Capsule, [facility]/pharmacy #[id number], Partial fill upon patient request [...] pain, 05/30/21 15:41:00 EDT,Route to Pharmacy Electronically, [facility]/pharmacy #... Start Date: 05/30/21 Stop Date: 09/30/21 Status: Ordered lidocaine 5% topical cream 1 application, Topically, 3 times a day, # 45 Gm, 0 Refills, Acute 09/17/21 18:30:00 EST, 07/17/21 18:29:00 EDT, Cream, [facility]/pharmacy #[id number], Partial fill upon patient request if the prescription is for a schedule II opioid drug., 1 application Topicall... Start Date: 07/17/21 Stop Date: 09/17/21 Status: Ordered lidocaine 5% topical cream 1 application, Topically, 3 times a day, label in samoan, # 45 Gm, 0 Refills, Acute 09/22/21 12:02:00 EST, 09/17/21 18:30:00 EST, Cream, [facility]/pharmacy #[id number], Partial fill upon patient request [...] 20 mg oral tablet See Instructions, in samoan : one tab a day for 10 days then decrease to 1/2 tab a day for 7 d., #14 tablet, 0 Refills, Maintenance, 01/26/20 16:02:00 EDT, Tablet, [facility]/pharmacy #[id number], 167.1, cm, 01/11/20 11:27:00 EDT, [...] 07/04/21 15:33:00 EDT, Route to Pharmacy Electronically, [facility]/pharmacy #[id number], Partial... Start Date: 07/04/21 Stop Date: 07/11/21 Status: Ordered Tylenol Extra Strength 500 mg oral tablet 2 tablet = 1,000 mg, By Mouth, 3 times a day, PRN for fever, not to exceed 3000 mg/day label in samoan, # 120 tablet, 1 Refills, Acute 09/30/21 15:43:00 EST, 05/30/21 15:43:00 EDT, Tablet, [id number], Partial fill upon [...] Service Informant Lipoma of back Discharge Diagnosis 08/30/21 Vital Signs Most recent to oldest [Reference Range]: 1 Height 167.1 cm (08/30/21 10:22 AM) Weight 126.7 kg (08/30/21 10:22 AM) Pulse Rate [55-90 bpm] 80 bpm (08/30/21 10:22 AM) Body Mass Index [18.5-24.99] 45.38 *>HHI* (08/30/21 10:22 AM) Blood Pressure [90-138/55-84 mm Hg] 132/ 85mm Hg (08/30/21 10:22 AM) Temperature [96.8-100.4 DegF] 96.6 DegF *L* (08/30/21 10:22 AM) Blood pressure sites Arm, right (08/30/21 10:22 AM) Temperature Route Temporal (08/30/21 10:22 AM) Social History Social History Type Response Smoking Status Never (less than 100 in lifetime); Exposure to Secondhand Smoke: No entered on: 01/31/21 Sex
--- OUTSIDE RECORDS SUMMARY | 2023-01-22 10:36 | XMS_ITS | Continuity of Care Document ---
Author Name Unknown Organization [facility] Address Unknown Care Team Providers Care Pharmaceutical Officer Name Role Phone Tejas Castillo MD Primary Care Physician [phone] Encounter [facility] Date(s): 01/17/22 - 03/27/22 [facility] Attending Physician: Tejas Castillo MD Admitting Physician: Tejas Castillo MD Allergies, Adverse Reactions, Alerts Substance Reaction Severity Status SUMAtriptan Persistent Moderate Active Tylenol with Codeine gets red and hot Act mulu Immunizations Given and Recorded Vaccine Date Status Refusal Reason SARS-CoV-2 mRNA (yllenkq-iebg-ykqrx) vax 02/18/22 Given SARS-CoV-2 (COVID-19) mRNA BNT-162b2 [...] 12/28/2011:08:00 EDT, Aerosol, Route to Pharmacy Electronically, [id number], [facility]/pharmacy #[id number], 167.1, cm, 12/28/19 11:35:00 EDT, He... Start Date: 12/28/19 Status: Ordered Claritin 10 mg oral tablet 10 mg, 1, tablet, By Mouth, Daily, # 30 tablet, Refills 11, Tot. Refills 11, Maintenance, 06/22/19 10:44:05 EDT, Route to Pharmacy Electronically, [id number], [facility]/pharmacy #[id number] Start Date: 06/22/19 Stop Date: [...] in the system. please go to any [facility] lab., # 100 Gm, 0 Refills, Maintenance, 12/02/20 19:47:00 EST, Gel, [facility]/pharmacy #[id number], Partial fill... Start Date: 12/02/20 Status: Ordered diclofenac potassium 50 mg oral tablet 1 tablet = 50 mg, By Mouth, 3 times a day, PRN for pain, PRN Foot and knee pain. To replace naproxen. Kazakh. Take with food., # 50 tablet, 1 Refills, Maintenance, 01/02/21 16:27:00 EDT, Tablet, [facility]/pharmacy #[id number], Partial fill upon patient request i... Start Date: 01/02/21 Status: Ordered Excedrin Migraine oral tablet 2 tablet, By Mouth, Every 6 hours, PRN for headache, # 50 tablet, 0 Refills, Maintenance, 11/18/21 10:12:00 EST, Tablet, [id number], Partial fill upon patient request if the prescription is for a schedule II opioid drug., 2 tablet By Mouth Niya... Start Date: 11/18/21 Status: Ordered Home Blood Pressure Monitor See Instructions, # 1 each, Maintenance, Check blood pressure; at least 2 hrs after taking bp pill hctz 12.5 mg daily, 07/22/21 11:54:00 EDT, Supply Start Date: 07/22/21 Status: Ordered hydroCHLOROthiazide 12.5 mg oral capsule 1 capsule = 12.5 mg, By Mouth, Daily, label in yoruba, # 90 capsule, 1 Refills, Maintenance, 07/22/21 11:52:00 EDT, Capsule, [facility]/pharmacy #[id number], Partial fill upon patient request if the prescriptionis for a schedule II opioid drug., 167.1, cm, 07/22... Start Date: 07/22/21 Status: Ordered Medrol Dosepak 4 mg oral tablet 1 pack/packet, By Mouth, Daily, for 6 days, as directed on package labeling, # 21 tablet, 5 Refills, Acute 04/02/22 12:07:00 EDT, 02/25/22 12:07:00 EDT, Tablet, [facility][id number], Partial fill upon patient request if the prescription is for... Start Date: 02/25/22 Stop Date: 04/02/22 Status: Ordered Nebulizer/Compressor See Instructions, # 1 each, Maintenance, as directed. with all supplies including tubing and mouthpiece, 09/14/19 11:53:40 EST, Compound Start Date: 09/14/19 Status: Ordered Symbicort 80mcg/4.5mcg Inhaler 2, puffs, Inhalation, 2 times a day, # 1 each, Refills 3, Tot. Refills 3, Maintenance, 02/18/22 8:50:00 EDT, Aerosol, Route to Pharmacy Electronically, [id number], [facility] #[id number], 167.1, cm, 02/18/22 8:13:00 EDT,... Start Date: 02/18/22 Stop Date: 06/18/22 Status: Ordered wrist splints wrist splints, See [...] Lipoma of back(Confirmed) Active Cervical cancer(Confirmed) Active Prediabetes(Confirmed) Active Severe obesity(Confirmed) Active Acquired vaginal adhesions(Confirmed) Active Varicose veins of both lower extremities(Confirmed) Active Social History Social History Type Response Smoking Status Never (less than 100 in lifetime); Exposure to Secondhand Smoke: No entered on: 01/31/21 Sex
--- OUTSIDE RECORDS SUMMARY | 2023-01-22 10:36 | XMS_ITS | Continuity of Care Document ---
Author Name Unknown Organization [facility] Address [address] [place] [address]- Care Team Providers Care Saddle Lining Stitcher Name Role Phone Damian Reyes MD Primary Care Phys[id number] Date(s[facility]17/[facility] - 05/15/[address] [address]- Discharge Disposition: A-D/C Home Attending Physician: Tejas Castillo MD Admitting Physician: Tejas Castillo MD Referring Physician: Tejas Castillo MD Allergies, Adverse Reactions, Alerts Substance Reaction Severity Status Tylenol with Codeine gets red and hot Act mulu SUMAtriptan Persistent Moderate Active Immunizations Given and Recorded Vaccine Date Status Refusal Reason SARS-CoV-2 mRNA (ymvtdwm-eohy-hyhjl) vax 02/18/22 Given SARS-CoV-2 (COVID-19) mRNA BNT-162b2 [...] 12/28/2011:08:00 EDT, Aerosol, Route to Pharmacy Electronically, [id number], [facility]/pharmacy #207, 167.1, cm, 12/28/19 11:35:00 EDT, He... Start Date: 12/28/19 Status: Ordered Claritin 10 mg oral tablet 10 mg, 1, tablet, By Mouth, Daily, # 30 tablet, Refills 11, Tot. Refills 11, Maintenance, 06/22/19 10:44:05 EDT, Route to Pharmacy Electronically, [id number], [facility]/pharmacy #207 Start Date: 06/22/19 Stop Date: 06/16/20 [...] in the system. please go to any [facility] lab., # 100 Gm, 0 Refills, Maintenance, 12/02/20 19:47:00 EST, Gel, [facility]/pharmacy #207, Partial fill... Start Date: 12/02/20 Status: Ordered diclofenac potassium 50 mg oral tablet 1 tablet = 50 mg, By Mouth, 3 times a day, PRN for pain, PRN Foot and knee pain. To replace naproxen. Prydeinig. Take with food., # 50 tablet, 1 Refills, Maintenance, 01/02/21 16:27:00 EDT, Tablet, [facility]/pharmacy #207, Partial fill upon patient request i... Start Date: 01/02/21 Status: Ordered duloxetine 30 mg oral enteric coated capsule 1 capsule = 30 mg, By Mouth, Daily, # 30 capsule, 2 Refills, Maintenance, 04/29/22 11:24:00 EDT, [facility] #[id number], Partial fill upon patient request if the prescription is for a schedule II opioid drug., 167, cm, 04/29/22 10:51:00 EDT, Heig... Start Date: 04/29/22 Status: Ordered Excedrin Migraine oral tablet 2 tablet, By Mouth, Every 6 hours, PRN for headache, # 50 tablet, 0 Refills, Maintenance, 11/18/21 10:12:00 EST, Tablet, [facility]/pharmacy #[id number], Partial fill upon patient request [...] 12.5 mg, By Mouth, Daily, label in arabic, # 90 capsule, 1 Refills, Maintenance, 07/22/21 11:52:00 EDT, Capsule, [facility]/pharmacy #[id number], Partial fill upon patient request if the prescriptionis for a schedule II opioid drug., 167.1, cm, 07/22... Start Date: 07/22/21 Status: Ordered Nebulizer/Compressor See Instructions, # 1 each, Maintenance, as directed. with all supplies including tubing and mouthpiece, 09/14/19 11:53:40 EST, Compound Start Date: 09/14/19 Status: Ordered oxyCODONE 5 mg oral tablet 5 mg, 1, tablet, By Mouth, Every 4 hours, PRN, # 20 tablet, Refills 0, Tot. Refills 0, Acute 04/21/23 15:34:00 EDT, Pain , Severe, 04/20/22 15:33:00 EDT, Route to Pharmacy Electronically, [facility], Partial fill upon patient request if... Start Date: 04/20/22 Stop Date: 04/21/23 Status: Ordered Symbicort 160mcg/4.5mcg Inhaler 2, puffs, Inhalation, 2 times a day, # 10.2 Gm, Refills 3, Tot. Refills 3, Maintenance, 04/29/22 11:06:00 EDT, Aerosol, Route to Pharmacy Electronically, [id number], [facility] #[id number], 167, cm, 04/29/22 10:51:00 EDT... Start Date: 04/29/22 Status: Ordered Tylenol 325 mg oral tablet 650 mg, 2, tablet, By Mouth, Every 4 hours, # 50 tablet, Refills 0, Tot. Refills 0, Acute 04/21/23 15:34:00 EDT, 04/20/22 15:33:00 EDT, Route to Pharmacy Electronically, [facility], Partial fill upon patient request if the prescription i... Start Date: 04/20/22 Stop Date: 04/21/23 Status: Ordered wrist splints wrist splints, See [...] Active Asthma(Confirmed) Active Bartholin's gland cyst(Confirmed) Active Carpal tunnel syndrome, left(Confirmed) Active S/P laparoscopic appendectomy(Confirmed) 04/19/22 Active HTN (hypertension)(Confirmed) Active Lipoma of back(Confirmed) Active Cervical cancer(Confirmed) Active Prediabetes(Confirmed) Active Severe obesity(Confirmed) Active Acquired vaginal adhesions(Confirmed) Active Varicose veins of both lower extremities(Confirmed) Active Social History Social History Type Response Smoking Status Never (less than 100 in lifetime); Exposure to Secondhand Smoke: No entered on: 01/31/21 Sex
--- OUTSIDE RECORDS SUMMARY | 2023-01-22 10:36 | XMS_ITS | Continuity of Care Document ---
Author Name Unknown Organization [facility] Address [address] [place] [address]- Care Team Providers Care Institutional Commodity Analyst Name Role Phone Josr MARTÍNEZ, Rika Yanes Primary Care Physician Encounter [facility] Date(s): 07/13/20 - 08/12/20 [facility] [address]- [facility] Attending Physician: Admtr, Poonam Allergies, Adverse Reactions, [...] 12/28/2011:08:00 EDT, Aerosol, Route to Pharmacy Electronically, [id number], [facility]/pharmacy #[id number], 167.1, cm, 12/28/19 11:35:00 EDT, He... Start Date: 12/28/19 Status: Ordered Claritin 10 mg oral tablet 10 mg, 1, tablet, By Mouth, Daily, # 30 tablet, Refills 11, Tot. Refills 11, Maintenance, 06/22/19 10:44:05 EDT, Route to Pharmacy Electronically, [id number], [facility]/pharmacy #[id number] Start Date: [...] 20 mg oral tablet See Instructions, in georgian : one tab a day for 10 days then decrease to 1/2 tab a day for 7 d., #14 tablet, 0 Refills, Maintenance, 01/26/20 16:02:00 EDT, Tablet, [facility]/pharmacy #[id number], 167.1, cm, 01/11/20 11:27:00 [...]
--- OUTSIDE RECORDS SUMMARY | 2023-01-22 10:36 | XMS_ITS | Continuity of Care Document ---
Author Name Unknown Organization [facility] Address [address] [place] [address] [address] [place] [address]- Care Team Providers Care Superintendent Quarry Name Role Phone Damian Reyes MD Primary Care Physician Encounter [facility] Date(s): 07/03/22 - 09/12/[address] [place] [address]- Attending Physician: Terrence Alegria Referring Physician: Damian Reyes MD Allergies, Adverse Reactions, Alerts Substance Reaction Severity Status Tylenol with Codeine gets red and hot Act mulu SUMAtriptan 1 Persistent Moderate Active 1Vomiting, weakness, flushing Immunizations Given and Recorded Vaccine Date Status Refusal Reason SARS-CoV-2 mRNA (hpfehvc-zmjd-tgtjr) vax 02/18/22 Given SARS-CoV-2 (COVID-19) mRNA BNT-162b2 [...] 08/04/2214:56:00 EDT, Aerosol, Route to Pharmacy Electronically, [id number], [facility] #[id number], 167, cm, 08/04/22 14:42:00... Start Date: 08/04/22 [...] mg. Take in AM for high BP. Kittitian, # 30 tablet, Refills 11, Tot. Refills 11, Maintenance, 06/05/22 11:32:00 EDT, Route to Pharmacy Electronically, [facility] #[id number]... Start Date: 06/05/22 Status: Ordered montelukast 10 mg oral tablet 10 mg, 1, tablet, By Mouth, Daily, # 30 tablet, Refills 5, Tot. Refills 5, Maintenance, 06/30/22 10:47:00 EDT, Route to Pharmacy Electronically, [facility] #[id number], Partial fill upon patientrequest if the prescription [...] 11:06:00 EDT, Aerosol, Route to Pharmacy Electronically, [id number], [facility] #[id number], 167, cm, 04/29/22 10:51:00 EDT... Start Date: 04/29/22 Status: Ordered Tylenol 8 HR Arthritis Pain 650 mg oral tablet, extended release 1 tablet = 650 mg, By Mouth, Every 8 hours, PRN as needed for pain, for 30 days, # 90 tablet, 0 Refills, Acute 10/11/22 12:20:00 EST, 09/11/22 12:20:00 EST, ER Tablet, [facility] #[id number], Partial fill upon patient request if the [...] Name: Damian Reyes MD Position: [facility] Resident Member Role: PCP Address: Address: [address] [place] [id number] Name: Zoya Rodgers RN Position: [facility] Onco RN Member Role: Primary Care Nurse Name: Jayde Llanos RN Position: [facility] RN Member Role: Primary Care Nurse Care Team Related Persons Name: RUSLAN MCCRARY Address: home [address] [address] Name: BREANA MCCLENDON Address: home [address] [place] [address] Name: DONTAE BAZZI Address: home [address] [place] [address] Name: CELESTINE BAZIZ Address: home [address] [place] [address]
--- OUTSIDE RECORDS SUMMARY | 2023-01-22 10:36 | XMS_ITS | Continuity of Care Document ---
Author Name Unknown Organization [facility]PER[facility] Address [address] [place] [address]- Care Team Providers Care Child Life Therapist Name Role Phone Josr MARTÍNEZ, Rika Yanes Primary Care Physician Encounter [facility] Date(s): 12/26/19 - 01/05/20 [facility] MAINTENANCE SUPERVISOR MECHANICAL Oncology [address] [place] [address]- [facility] Attending Physician: AdmPoonam muñiz Admitting Physician: AdmPoonam muñiz Referring Physician: AdmtrPoonam Allergies, Adverse Reactions, Alerts [...] 12/28/2011:08:00 EDT, Aerosol, Route to Pharmacy Electronically, [id number], [facility]/pharmacy #[id number], 167.1, cm, 12/28/19 11:35:00 EDT, He... Start Date: 12/28/19 Status: Ordered Claritin 10 mg oral tablet 10 mg, 1, tablet, By Mouth, Daily, # 30 tablet, Refills 11, Tot. Refills 11, Maintenance, 06/22/19 10:44:05 EDT, Route to Pharmacy Electronically, [id number], [facility]/pharmacy #207 Start Date: 06/22/19 Stop Date: 06/16/20 Status: Ordered Flovent HFA 110 mcg/inh inhalation aerosol 2 puffs, Inhalation, 2 times a day, # 12 Gm, 3 Refills, Maintenance, 12/28/19 12:07:00 EDT, Aerosol, [facility]/pharmacy #[id number], 167.1, cm, 12/28/19 11:35:00 EDT, [...] Eyes, Both Every 12 hours Start Date: 9/11/19 Status: Ordered Problem List Condition Effective Dates Status Health Status Inform ant Acute asthma flare(Confirmed) Active Allergic rhinitis(Confirmed) Active Asthma(Confirmed) Active Bartholin's gland cyst(Confirmed) Active Lipoma of back(Confirmed) Active Cervical cancer(Confirmed) Active Morbid obesity(Confirmed) Active Acquired vaginal adhesions(Confirmed) Active Social History Social History Type Response Smoking Status Never smoker entered on: 07/22/17 Sex
--- OUTSIDE RECORDS SUMMARY | 2023-01-22 10:36 | XMS_ITS | Continuity of Care Document ---
Author Name Unknown Organization [facility] Address [address] [place] [address]- Care Team Providers Care Early Childhood Educator Aide Name Role Phone Rika Ovalles NP Primary Care Physician Encounter [facility] Date(s): 01/26/20 - 02/02/20 [facility]/[address] [address]- [facility] Attending Physician: Rika Ovalles NP Allergies, Adverse Reactions, [...] 12/28/2011:08:00 EDT, Aerosol, Route to Pharmacy Electronically, [id number], [facility]/pharmacy #[id number], 167.1, cm, 12/28/19 11:35:00 EDT, He... Start Date: 12/28/19 Status: Ordered Claritin 10 mg oral tablet 10 mg, 1, tablet, By Mouth, Daily, # 30 tablet, Refills 11, Tot. Refills 11, Maintenance, 06/22/19 10:44:05 EDT, Route to Pharmacy Electronically, [id number], [facility]/pharmacy #[id number] Start Date: 06/22/19 Stop Date: 06/16/20 Status: Ordered Flovent HFA 110 mcg/inh inhalation aerosol 2 puffs, Inhalation, 2 times a day, # 12 Gm, 3 Refills, Maintenance, 12/28/19 12:07:00 EDT, Aerosol, [facility]/pharmacy #[id number], 167.1, cm, 12/28/19 11:35:00 [...] 20 mg oral tablet See Instructions, in croatian : one tab a day for 10 days then decrease to 1/2 tab a day for 7 d., #14 tablet, 0 Refills, Maintenance, 01/26/20 16:02:00 EDT, Tablet, [facility]/pharmacy #[id number], 167.1, cm, 04/01/20 11:27:00 EDT, Height, 119.9, kg, 08/31/19 12:... [...]
--- OUTSIDE RECORDS SUMMARY | 2023-01-22 10:36 | XMS_ITS | Continuity of Care Document ---
Author Name Unknown Organization [facility] Address Unknown Care Team Providers Care Supervisor Shop Name Role Phone Lisa Isaac NP Primary Care Physician Encounter [facility] Date(s): 05/14/21 - 06/13/21 [facility] Allergies, Adverse Reactions, Alerts Substance Reaction [...] 12/28/2011:08:00 EDT, Aerosol, Route to Pharmacy Electronically, [id number], [facility]/pharmacy #[id number], 167.1, cm, 12/28/19 11:35:00 EDT, He... Start Date: 12/28/19 Status: Ordered Claritin 10 mg oral tablet 10 mg, 1, tablet, By Mouth, Daily, # 30 tablet, Refills 11, Tot. Refills 11, Maintenance, 06/22/19 10:44:05 EDT, Route to Pharmacy Electronically, [id number], [facility]/pharmacy #[id number] Start Date: 06/22/19 Stop Date: 06/16/20 Status: Ordered diclofenac 1% topical gel 1 application, Topically, 4 times a day, PRN Pain , Severe, right ankle and left wrist due for labs. orders in the system. please go to any [facility] lab., # 100 Gm, 0 Refills, Maintenance, 12/02/20 19:47:00 EST, Gel, [facility]/pharmacy #[id number], Partial fill... Start Date: 12/02/20 Status: Ordered diclofenac potassium 50 mg oral tablet 1 tablet = 50 mg, By Mouth, 3 times a day, PRN for pain, PRN Foot and knee pain. To replace naproxen. Swazi. Take with food., # 50 tablet, 1 Refills, Maintenance, 01/02/21 16:27:00 EDT, Tablet, [facility]/pharmacy #[id number], Partial fill upon patient request i... Start Date: 01/02/21 Status: Ordered Flovent HFA 110 mcg/inh inhalation aerosol 2 puffs, Inhalation, 2 times a day, # 12 Gm, 3 Refills, Maintenance, 12/28/19 12:07:00 EDT, Aerosol, [facility]/pharmacy #[id number], 167.1, cm, 12/28/19 11:35:00 EDT, Height, 119.9, kg, 08/31/19 12:00:00 EST, Dry Weight Start Date: 12/28/19 Status: Ordered ibuprofen 800 mg oral tablet 800 mg, 1, tablet, By Mouth, 3 times a day, PRN, do not take with other NSAIDs with food or milk, #40 tablet, Refills 0, Tot. Refills 0, Acute 09/30/21 15:42:00 EST, for pain, 05/30/21 15:41:00 EDT,Route to Pharmacy Electronically, [facility]/pharmacy #... Start Date: 05/30/21 Stop Date: 09/30/21 Status: Ordered Nebulizer/Compressor See Instructions, # 1 [...] Refills, Maintenance, 03/08/21 11:31:00 EDT, [id number], 167.1, cm, 01/31/21 14:36:00 EDT, Height, 125.45, kg, 11/28/20 15:44:00 EST, Dry Weight Start Date: 03/08/21 Status: Ordered predniSONE 20 mg oral tablet See Instructions, in uruguayan : one tab a day for 10 days then decrease to 1/2 tab a day for 7 d., #14 tablet, 0 Refills, Maintenance, 01/26/20 16:02:00 EDT, Tablet, [facility]/pharmacy #[id number], 167.1, cm, 01/11/20 11:27:00 EDT, Height, 119.9, kg, 08/31/19 12:... Start Date: 01/26/20 Status: Ordered Tylenol Extra Strength 500 mg oral tablet 2 tablet = 1,000 mg, By Mouth, 3 times a day, PRN for fever, not to exceed 3000 mg/day label in uruguayan, # 120 tablet, 1 Refills, Acute 09/30/21 15:43:00 EST, 05/30/21 15:43:00 EDT, Tablet, [facility]/pharmacy #[id number], Partial fill upon patient request [...]
--- OUTSIDE RECORDS SUMMARY | 2023-01-22 10:36 | XMS_ITS | Continuity of Care Document ---
Author Name Unknown Organization [facility] Address [address] [place] [address]- Care Team Providers Care Stretch Box Tender Name Role Phone Josr MARTÍNEZ, Rika Yanes Primary Care Physician Encounter [facility] Date(s): 12/21/19 - 01/21/20 [facility]/[address] [address]- [facility] Attending Physician: Luiza Aponte MD Admitting Physician: Luiza Aponte MD Allergies, Adverse Reactions, Alerts Substance Reaction [...] 12/28/2011:08:00 EDT, Aerosol, Route to Pharmacy Electronically, [id number], [facility]/pharmacy #[id number], 167.1, cm, 12/28/19 11:35:00 EDT, He... Start Date: 12/28/19 Status: Ordered Claritin 10 mg oral tablet 10 mg, 1, tablet, By Mouth, Daily, # 30 tablet, Refills 11, Tot. Refills 11, Maintenance, 06/22/19 10:44:05 EDT, Route to Pharmacy Electronically, [id number], [facility]/pharmacy #[id number] Start Date: 06/22/19 Stop Date: 06/16/20 Status: Ordered Flovent HFA 110 mcg/inh inhalation aerosol 2 puffs, Inhalation, 2 times a day, # 12 Gm, 3 Refills, Maintenance, 12/28/19 12:07:00 EDT, Aerosol, [facility]/pharmacy #[id number], 167.1, cm, 12/28/19 11:35:00 EDT, [...]
--- OUTSIDE RECORDS SUMMARY | 2023-01-22 10:36 | XMS_ITS | Continuity of Care Document ---
Author Name Unknown Organization [facility] Address Unknown Care Team Providers Care Tetryl Screen Operator Name Role Phone Tejas Castillo MD Primary Care Physician [phone] Encounter [facility] Date(s): 09/25/21 - 10/02/21 [facility] Encounter Diagnosis Lipoma of back(Discharge Diagnosis) - 09/25/21 Attending Physician: Terrence Alegria Referring Physician: Tejas [...] 12/28/2011:08:00 EDT, Aerosol, Route to Pharmacy Electronically, [id number], [facility]/pharmacy #[id number], 167.1, cm, 12/28/19 11:35:00 EDT, He... Start Date: 12/28/19 Status: Ordered Claritin 10 mg oral tablet 10 mg, 1, tablet, By Mouth, Daily, # 30 tablet, Refills 11, Tot. Refills 11, Maintenance, 06/22/19 10:44:05 EDT, Route to Pharmacy Electronically, [id number], [facility]/pharmacy #[id number] Start Date: 06/22/19 Stop Date: [...] in the system. please go to any [facility] lab., # 100 Gm, 0 Refills, Maintenance, 12/02/20 19:47:00 EST, Gel, [facility]/pharmacy #[id number], Partial fill... Start Date: 12/02/20 Status: Ordered diclofenac potassium 50 mg oral tablet 1 tablet = 50 mg, By Mouth, 3 times a day, PRN for pain, PRN Foot and knee pain. To replace naproxen. Danish. Take with food., # 50 tablet, 1 Refills, Maintenance, 01/02/21 16:27:00 EDT, Tablet, [facility]/pharmacy #[id number], Partial fill upon patient request i... Start Date: 01/02/21 Status: Ordered Flovent HFA 110 mcg/inh inhalation aerosol 2 puffs, Inhalation, 2 times a day, # 12 Gm, 3 Refills, Maintenance, 12/28/19 12:07:00 EDT, Aerosol, [facility]/pharmacy #[id number], 167.1, cm, 12/28/19 11:35:00 EDT, [...] 12.5 mg, By Mouth, Daily, label in andorran, # 90 capsule, 1 Refills, Maintenance, 07/22/21 11:52:00 EDT, Capsule, [facility]/pharmacy #[id number], Partial fill upon patient request [...] 20 mg oral tablet See Instructions, in andorran : one tab a day for 10 days then decrease to 1/2 tab a day for 7 d., #14 tablet, 0 Refills, Maintenance, 01/26/20 16:02:00 EDT, Tablet, [facility]/pharmacy #[id number], 167.1, cm, 01/11/20 11:27:00 EDT, [...] 07/04/21 15:33:00 EDT, Route to Pharmacy Electronically, [facility]/pharmacy #[id number], Partial... Start Date: 07/04/21 Stop Date: 07/11/21 [...] Service Informant Lipoma of back Discharge Diagnosis 09/25/21 Vital Signs Most recent to oldest [Reference Range]: 1 Height 167.1 cm (09/25/21 9:05 AM) Weight 126.9 kg (09/25/21 9:05 AM) Body Mass Index [18.5-24.99] 45.45 *>HHI* (09/25/21 9:05 AM) Temperature [96.8-100.4 DegF] 96.9 DegF (09/25/21 9:05 AM) Blood pressure sites Arm, left (09/25/21 9:05 AM) Temperature Route Temporal (09/25/21 9:05 AM) Weight Obtained Via Standing scale (09/25/21 9:05 AM) Social History Social History Type Response Smoking Status Never (less than 100 in lifetime); Exposure to Secondhand Smoke: No entered on: 01/31/21 Sex
--- OUTSIDE RECORDS SUMMARY | 2023-01-22 10:36 | XMS_ITS | Continuity of Care Document ---
Author Name Unknown Organization [facility] Address [address] [place] [address] Dr [address] [place] [address]- Care Team Providers Care Relish Blender Name Role Phone Damian Reyes MD Primary Care Physician [place] [facility] Date[place] 08/12/22 - 12/12/[address] [place] [address]- Attending Physician: Terrence Alegria Referring Physician: Damian Reyes MD Allergies, Adverse Reactions, Alerts Substance Reaction Severity Status SUMAtriptan 1 Persistent Moderate Active Tylenol with Codeine gets red and hot Act mulu 1Vomiting, weakness, flushing Immunizations Given and Recorded Vaccine Date Status Refusal Reason SARS-CoV-2 mRNA (nrgrwwq-kcwu-mnctn) vax 02/18/22 Given SARS-CoV-2 (COVID-19) mRNA BNT-162b2 [...] 08/04/2214:56:00 EDT, Aerosol, Route to Pharmacy Electronically, [id number], [facility] #[id number], 167, cm, 08/04/22 14:42:00... Start Date: 08/04/22 [...] 11/06/22 15:19:00 EST, Route to Pharmacy Electronically, [facility] #[id number], Partial fill upon patient request if the [...] 06/30/22 10:47:00 EDT, Route to Pharmacy Electronically, [facility] #[id number], Partial fill upon patientrequest if the prescription [...] 11:11:00 EST, Aerosol, Route to Pharmacy Electronically, [id number], [facility] #[id number], 167, cm, 09/11/22 11:44:00 EST... Start Date: 09/23/22 Status: Ordered tiZANidine 2 mg oral tablet 2 mg, 1, tablet, By Mouth, 3 times a day, # 90 tablet, Refills 0, Tot. Refills 0, Maintenance, 12/11/22 13:37:00 EST, Route to Pharmacy Electronically, [facility] #[id number], Partial fill upon patient request if the [...] Team Personnel Name: Damian Reyes MD Position: [facility] Resident Member Role: PCP Address: Address: [address] [place] [address] [place] Name: Zoya Rodgers RN Position: S Onco RN Member Role: Primary Care Nurse Name: Jayde Llanos RN Position: S RN Member Role: Primary Care Nurse Care Team Related Persons Name: RUSLAN MCCRARY Address: home [address] [place] [address] Name: BREANA MCCLENDON Address: home [address] [address] Name: DONTAE BAZZI Address: home [address] [place] [address] Name: CELESTINE BAZZI Address: home [address] [place] [address]
--- OUTSIDE RECORDS SUMMARY | 2023-01-22 10:36 | XMS_ITS | Continuity of Care Document ---
Author Name Unknown Organization [facility] Address [address] [place] [address]- Care Team Providers Care Club Attendant Name Role Phone Josr MARTÍNEZ, Rika Yanes Primary Care Physician [phone] [id number] Date(s): 01/06/21 - 01/07/[address] [address]- Discharge Disposition: A-D/C Walkout Attending Physician: Not on Staff, Attending MD Admitting Physician: Not on Staff, Admitting MD Referring Physician: Not on Staff, Referring MD [...] 12/28/2011:08:00 EDT, Aerosol, Route to Pharmacy Electronically, [id number], [facility]/pharmacy #[id number], 167.1, cm, 12/28/19 11:35:00 EDT, He... Start Date: 12/28/19 Status: Ordered Claritin 10 mg oral tablet 10 mg, 1, tablet, By Mouth, Daily, # 30 tablet, Refills 11, Tot. Refills 11, Maintenance, 06/22/19 10:44:05 EDT, Route to Pharmacy Electronically, [id number], [facility]/pharmacy #[id number] Start Date: 06/22/19 Stop Date: 06/16/20 Status: Ordered diclofenac 1% topical gel 1 application, Topically, 4 times a day, PRN Pain , Severe, right ankle and left wrist due for labs. orders in the system. please go to any [facility] lab., # 100 Gm, 0 Refills, Maintenance, 12/02/20 19:47:00 EST, Gel, [facility]/pharmacy #[id number], Partial fill... Start Date: 12/02/20 Status: Ordered diclofenac potassium 50 mg oral tablet 1 tablet = 50 mg, By Mouth, 3 times a day, PRN for pain, PRN Foot and knee pain. To replace naproxen. English. Take with food., # 50 tablet, 1 Refills, Maintenance, 01/02/21 16:27:00 EDT, Tablet, [facility]/pharmacy #[id number], Partial fill upon patient request i... Start Date: 01/02/21 Status: Ordered Flovent HFA 110 mcg/inh inhalation aerosol 2 puffs, Inhalation, 2 times a day, # 12 Gm, 3 Refills, Maintenance, 12/28/19 12:07:00 EDT, Aerosol, [facility]/pharmacy #[id number], 167.1, cm, 12/28/19 11:35:00 EDT, [...] 20 mg oral tablet See Instructions, in moldovan : one tab a day for 10 days then decrease to 1/2 tab a day for 7 d., #14 tablet, 0 Refills, Maintenance, 01/26/20 16:02:00 EDT, Tablet, [facility]/pharmacy #[id number], 167.1, cm, 01/11/20 11:27:00 EDT, [...] Morbid obesity(Confirmed) Active Acquired vaginal adhesions(Confirmed) Active Vital Signs Most recent to oldest [Reference Range]: 1 2 3 Oxygen Saturation [94-100 %] 99 % (01/07/21 2:31 AM) 99 % (01/07/21 12:04 AM) 99 % (01/06/21 10:04 PM) Pulse Rate [55-90 bpm] 78 bpm (01/07/21 2:31 AM) 76 bpm (01/07/21 12:04 AM) 77 bpm (01/06/21 10:04 PM) Blood Pressure [90-138/55-84 mm Hg] 132/89mm Hg (01/07/21 2:31 AM) 132/89mm Hg (01/07/21 12:04 AM) 128/87mm Hg (01/06/21 10:04 PM) Respiratory Rate [16-30 br/min] 18 br/min (01/07/21 2:31 AM) 20 br/min (01/07/21 12:04 AM) 19 br/min (01/06/21 10:04 PM) Temperature [96.8-100.4 DegF] 98.3 DegF (01/07/21 2:31 AM) 98.2 DegF (01/07/21 12:04 AM) 98.5 DegF (01/06/21 10:04 PM) Mode of Delivery (Oxygen) Room air (01/07/21 2:31 AM) Room air (01/07/21 12:04 AM) Room air (01/06/21 10:04 PM) Blood pressure sites Arm, right (01/07/21 2:31 AM) Arm, right (01/07/21 12:04 AM) Arm, right (01/06/21 10:04 PM) Temperature Route Oral (01/07/21 2:31 AM) Oral (01/07/21 12:04 AM) Oral (01/06/21 10:04 PM) Social History Social History Type Response Smoking Status Never smoker entered on: 07/22/17 Sex
--- OUTSIDE RECORDS SUMMARY | 2023-01-22 10:36 | XMS_ITS | Continuity of Care Document ---
Author Name Unknown Organization [facility] Address [address] [place] [address]- Care Team Providers Care Fare Enforcement Officer Name Role Phone Josr MARTÍNEZ, Rika Yanes Primary Care Physician Encounter [facility] Date(s): 10/26/20 - 11/25/20 [facility]/[address] [address]- Allergies, Adverse Reactions, Alerts Substance Reaction Severity [...] 12/28/2011:08:00 EDT, Aerosol, Route to Pharmacy Electronically, [id number], [facility]/pharmacy #[id number], 167.1, cm, 12/28/19 11:35:00 EDT, He... Start Date: 12/28/19 Status: Ordered Claritin 10 mg oral tablet 10 mg, 1, tablet, By Mouth, Daily, # 30 tablet, Refills 11, Tot. Refills 11, Maintenance, 06/22/19 10:44:05 EDT, Route to Pharmacy Electronically, [id number], [id number] Start Date: 06/22/19 Stop Date: 06/16/20 Status: Ordered diclofenac 1% topical gel 1 application, Topically, 4 times a day, PRN Pain , Severe, right ankle and left wrist due for labs. orders in the system. please go to any [facility] lab., # 100 Gm, 0 Refills, Maintenance, 11/09/20 15:39:00 EST, Gel, [facility]/pharmacy #[id number], Partial fill... Start Date: 11/09/20 Status: Ordered Flovent HFA 110 mcg/inh inhalation aerosol 2 puffs, Inhalation, 2 times a day, # 12 Gm, 3 Refills, Maintenance, 12/28/19 12:07:00 EDT, Aerosol, [facility]/pharmacy #[id number], 167.1, cm, 12/28/19 11:35:00 EDT, [...] 20 mg oral tablet See Instructions, in french : one tab a day for 10 [...]
--- OUTSIDE RECORDS SUMMARY | 2023-01-22 10:36 | XMS_ITS | Continuity of Care Document ---
Author Name Unknown Organization [facility] Address [address] [place] [address]- Care Team Providers Care Gravity Flow Irrigator Name Role Phone Josr MARTÍNEZ, Rika Yanes Primary Care Physician [place] [facility] [place] [place] 12/20/[place] - 01/19/[address] [address]- Allergies, Adverse Reactions, Alerts Substance Reaction Severity [...] 12/28/2011:08:00 EDT, Aerosol, Route to Pharmacy Electronically, [id number], [facility]/pharmacy #[id number], 167.1, cm, 12/28/19 11:35:00 EDT, He... Start Date: 12/28/19 Status: Ordered baclofen 10 mg oral tablet 10 mg, 1, tablet, By Mouth, 3 times a day, # 63 tablet, Refills 0, Tot. Refills 0, Maintenance, 01/08/21 9:14:00 EDT, Route to Pharmacy Electronically, [facility]/pharmacy #[id number], Partial fill upon patient request if the prescription is for a schedule II opio... Start Date: 01/08/21 Stop Date: 01/29/21 Status: Ordered Claritin 10 mg oral tablet 10 mg, 1, tablet, By Mouth, Daily, # 30 tablet, Refills 11, Tot. Refills 11, Maintenance, 06/22/19 10:44:05 EDT, Route to Pharmacy Electronically, [id number], [facility]/pharmacy #[id number] Start Date: 06/22/19 Stop Date: 06/16/20 Status: Ordered diclofenac 1% topical gel 1 application, Topically, 4 times a day, PRN Pain , Severe, right ankle and left wrist due for labs. orders in the system. please go to any [facility] lab., # 100 Gm, 0 Refills, Maintenance, 12/02/20 19:47:00 EST, Gel, [facility]/pharmacy #[id number], Partial fill... Start Date: 12/02/20 Status: Ordered diclofenac potassium 50 mg oral tablet 1 tablet = 50 mg, By Mouth, 3 times a day, PRN for pain, PRN Foot and knee pain. To replace naproxen. Czech. Take with food., # 50 tablet, 1 Refills, Maintenance, 01/02/21 16:27:00 EDT, Tablet, [id number], Partial fill upon patient request i... Start Date: 01/02/21 Status: Ordered Flovent HFA 110 mcg/inh inhalation aerosol 2 puffs, Inhalation, 2 times a day, # 12 Gm, 3 Refills, Maintenance, 12/28/19 12:07:00 EDT, Aerosol, [facility]/pharmacy #[id number], 167.1, cm, 12/28/19 11:35:00 EDT, [...] Ordered piroxicam 10 mg oral capsule 1 capsule = 10 mg, By Mouth, 2 times a day, with food. DISCONTINUE DICLOFENAC, , AND NAPROXEN, # 60capsule, 0 Refills, Maintenance, 01/10/21 16:55:00 EDT, Capsule Start Date: 01/10/21 Status: Ordered predniSONE 20 mg oral tablet See Instructions, in swedish : one tab a day for 10 days then decrease to 1/2 tab a day for 7 d., #14 tablet, 0 Refills, Maintenance, 01/26/20 16:02:00 EDT, Tablet, [facility]/pharmacy #[id number], 167.1, cm, 01/11/20 11:27:00 EDT, [...] 100 in lifetime); Exposure to Secondhand Smoke: No; Tobacco user in household: No entered on: 01/08/21 Sex
--- OUTSIDE RECORDS SUMMARY | 2023-01-22 10:36 | XMS_ITS | Continuity of Care Document ---
Author Name Unknown Organization [facility] Address [address] [place] [address] ve [address] [place] [address]- Care Team Providers Care Paradi Tender Name Role Phone Damian Reyes MD Primary Care Physician [phone] Encounter [facility] Date(s): 05/27/22 - 06/26/[address] [place] [address]- Attending Physician: Admmary kay, Abdullahi8 Admitting Physician: Admtr, Poonam Referring Physician: Admtr, Ar8 Allergies, Adverse Reactions, Alerts Substance Reaction Severity Status Tylenol with Codeine gets red and hot Act mulu SUMAtriptan 1 Persistent Moderate Active 1Vomiting, weakness, flushing Immunizations Given and Recorded Vaccine Date Status Refusal Reason SARS-CoV-2 mRNA (agsozrr-itdo-guhnr) vax 02/18/22 Given SARS-CoV-2 (COVID-19) mRNA BNT-162b2 vac 07/24/21 Given SARS-CoV-2 (COVID-19) mRNA BNT-162b2 vac 07/03/21 Given pneumococcal 13-valent vaccine 1 08/04/17 Given tetanus/diphtheria/pertussis, acel(Tdap) 03/20/16 Given pneumococcal 23-valent vaccine 09/29/13 Given 1Early/Late Reason: Wan to Standard Admin Times Medications acetaminophen 500 mg oral tablet 2 tablet, By Mouth, Every 6 hours, PRN NEEDED FOR HEADACHE DO NOT EXCEED, # 50 tablet, 0 Refills, Maintenance, 06/16/22 16:57:00 EDT, [email or web address] #[id number], 167, cm, 06/05/22 11:34:00 EDT, Height, 129.27, kg, 04/29/22 10:51:00 EDT, Dry Weight Start Date: 06/16/22 Status: Ordered albuterol CFC free 90 mcg/inh inhalation aerosol 2, puffs, Inhalation, 4 times a day, PRN, # 25 Gm, Refills 2, Tot. Refills 2, Maintenance, 12/28/2011:08:00 EDT, Aerosol, Route to Pharmacy Electronically, [id number], [facility]/pharmacy #[id number], 167.1, cm, 12/28/19 11:35:00 EDT, He... Start Date: 12/28/19 Status: Ordered Compression Stockings See Instructions, # 1 each, Maintenance, surgical, knee length 20-30 mm Hg Varicose veins of both lower extremities (I83.93) use daily to prevent worsening varicose veins/swelling LEs, 06/28/21 8:27:00 EDT, Supply Start Date: 06/28/21 Status: Ordered duloxetine 30 mg oral enteric coated capsule 1 capsule = 30 mg, By Mouth, Daily, # 30 capsule, 2 Refills, Maintenance, 04/29/22 11:24:00 EDT, [facility] #[id number], Partial fill upon patient request if the prescription is for a schedule II opioid drug., 167, cm, 04/29/22 10:51:00 EDT, Heig... Start Date: 04/29/22 Status: Ordered Home Blood Pressure Monitor See Instructions, # 1 each, Maintenance, I10 SABRINA 99 Arm Circ 37 CM, BMI 286 lbs weight 36.6, 06/05/22 11:19:00 EDT, Supply Start Date: 06/05/22 Status: Ordered hydrochlorothiazide 25 mg oral tablet 25 mg, 1, tablet, By Mouth, Daily, Increase in dose, to replace HCTZ 12.5 mg. Take in AM for high BP. Cuban, # 30 tablet, Refills 11, Tot. Refills 11, Maintenance, 06/05/22 11:32:00 EDT, Route to Pharmacy Electronically, [facility] #[id number]... Start Date: 06/05/22 Status: Ordered Nebulizer/Compressor See Instructions, # 1 each, Maintenance, as directed. with all supplies including tubing and mouthpiece, 09/14/19 11:53:40 EST, Compound Start Date: 09/14/19 Status: Ordered Symbicort 160mcg/4.5mcg Inhaler 2, puffs, Inhalation, 2 times a day, # 10.2 Gm, Refills 3, Tot. Refills 3, Maintenance, 04/29/22 11:06:00 EDT, Aerosol, Route to Pharmacy Electronically, [id number], [email or web address] #[id number], 167, cm, 04/29/22 10:51:00 EDT... Start Date: 04/29/22 Status: Ordered wrist splints wrist splints, See Instructions, # 2 each, Refills 0, Tot. Refills 0, Maintenance, dx : cts, to usenightly ., 01/31/20 15:50:00 EDT, Supply Start Date: 01/31/20 Status: Ordered Problem List Condition Effective Dates [...] Secondhand Smoke: No entered on: 01/31/21 Sex Care Team Personnel Name: Damian Reyes MD Address: [address] [place] [address]
--- OUTSIDE RECORDS SUMMARY | 2023-01-22 10:36 | XMS_ITS | Continuity of Care Document ---
Author Name Unknown Organization [facility] Address [address] [place] [address]- Care Team Providers Care Pressroom Supervisor Name Role Phone Josr MARTÍNEZ, Rika Yanes Primary Care Physician Encounter [facility] [id number] Date(s): 03/14/21 - 04/13/21 [facility]/[address] [address]- Attending Physician: Admtr, Ar8 Allergies, Adverse Reactions, [...] 12/28/2011:08:00 EDT, Aerosol, Route to Pharmacy Electronically, [id number], [facility]/pharmacy #[id number], 167.1, cm, 12/28/19 11:35:00 EDT, He... Start Date: 12/28/19 Status: Ordered Claritin 10 mg oral tablet 10 mg, 1, tablet, By Mouth, Daily, # 30 tablet, Refills 11, Tot. Refills 11, Maintenance, 06/22/19 10:44:05 EDT, Route to Pharmacy Electronically, [id number], [facility]/pharmacy #[id number] Start Date: 06/22/19 Stop Date: 06/16/20 Status: Ordered diclofenac 1% topical gel 1 application, Topically, 4 times a day, PRN Pain , Severe, right ankle and left wrist due for labs. orders in the system. please go to any [facility] lab., # 100 Gm, 0 Refills, Maintenance, 12/02/20 19:47:00 EST, Gel, [facility]/pharmacy #[id number], Partial fill... Start Date: 12/02/20 Status: Ordered diclofenac potassium 50 mg oral tablet 1 tablet = 50 mg, By Mouth, 3 times a day, PRN for pain, PRN Foot and knee pain. To replace naproxen. Australian. Take with food., # 50 tablet, 1 Refills, Maintenance, 01/02/21 16:27:00 EDT, Tablet, [facility]/pharmacy #[id number], Partial fill upon patient request i... Start Date: 01/02/21 Status: Ordered Flovent HFA 110 mcg/inh inhalation aerosol 2 puffs, Inhalation, 2 times a day, # 12 Gm, 3 Refills, Maintenance, 12/28/19 12:07:00 EDT, Aerosol, [facility]/pharmacy #[id number], 167.1, cm, 12/28/19 11:35:00 [...] Refills, Maintenance, 03/08/21 11:31:00 EDT, [id number], 167.1, cm, 01/31/21 14:36:00 EDT, Height, 125.45, kg, 11/28/20 15:44:00 EST, Dry Weight Start Date: 03/08/21 Status: Ordered predniSONE 20 mg oral tablet See Instructions, in argentine : one tab a day for 10 days then decrease to 1/2 tab a day for 7 d., #14 tablet, 0 Refills, Maintenance, 01/26/20 16:02:00 EDT, Tablet, [facility]/pharmacy #[id number], 167.1, cm, 01/11/20 11:27:00 EDT, [...]
--- OUTSIDE RECORDS SUMMARY | 2023-01-22 10:36 | XMS_ITS | Continuity of Care Document ---
Author Name Unknown Organization [facility] Address [address] [place] [address]- Care Team Providers Care Kelly Machine Operator Name Role Phone Damian Reyes MD Primary Care Physician Encounter [facility] Date(s): 12/22/22 - 01/21/23 [facility] [address]- [place] Allergies, Adverse Reactions, Alerts Substance Reaction Severity Status Tylenol with Codeine gets red and hot Act mulu SUMAtriptan 1 Persistent Moderate Active 1Vomiting, weakness, flushing Immunizations Given and Recorded Vaccine Date Status Refusal Reason [id number] 12y+ bivalent booster vax 01/02/23 Given SARS-CoV-2 mRNA (lwznfat-ogjo-ssfnr) vax 02/18/22 Given SARS-CoV-2 (COVID-19) mRNA BNT-162b2 [...] 08/04/2214:56:00 EDT, Aerosol, Route to Pharmacy Electronically, [id number], [facility] #[id number], 167, cm, 08/04/22 14:42:00... Start Date: 08/04/22 Status: Ordered AutoCPAP 8-20 with heated humidification AutoCPAP 8-20 with heated humidification, See Instructions, # 1 each, Refills 0, Tot. Refills 0, Maintenance, use overnight and naps from [facility], 12/10/22 13:36:00 EST, Compound Start Date: [...] Gm, 0 Refills, Maintenance, 01/02/23 11:21:00 EDT, [facility] #[id number], Partial fill upon patient request if the prescription is for a schedule II opioid drug., 167, cm, 01/02/23 10:... Start Date: 01/02/23 Stop Date: 02/01/23 Status: Ordered enalapril 5 mg oral tablet 5 mg, 1, tablet, By Mouth, Daily, # 30 tablet, Refills 3, Tot. Refills 3, Maintenance, 11/06/22 15:19:00 EST, Route to Pharmacy Electronically, [facility] #[id number], Partial fill upon patient request if the prescription is for a schedule II opi... Start Date: 11/06/22 Status: Ordered Home Blood Pressure Monitor See Instructions, # 1 each, Maintenance, I10 SABRINA 99 Arm Circ 37 CM, BMI 286 lbs weight 36.6, 06/05/22 11:19:00 EDT, Supply Start Date: 06/05/22 Status: Ordered hydrocortisone 2.5% topical lotion 1 application, Topically, 3 times a day, for 14 days, # 59 mL, 0 Refills, Acute 01/30/23 15:32:00 EDT, 01/16/23 15:32:00 EDT, Lotion, [facility] #[id number], Partial fill upon patient request ifthe prescription is for a schedule II opioid drug.,... Start Date: 01/16/23 Stop Date: 01/30/23 Status: Ordered meloxicam 7.5 mg oral tablet 1 tablet = 7.5 mg, By Mouth, 2 times a day, # 28 tablet, 0 Refills, Maintenance, 01/16/23 15:29:00 EDT, Tablet, [facility] #[id number], Partial fill upon patient request if the prescription is for a schedule II opioid drug., 167, cm, 01/16/23 14:... Start Date: 01/16/23 Stop Date: 01/30/23 Status: Ordered montelukast 10 mg oral tablet 10 mg, 1, tablet, By Mouth, Daily, # 30 tablet, Refills 5, Tot. Refills 5, Maintenance, 06/30/22 10:47:00 EDT, Route to Pharmacy Electronically, [facility] #[id number], Partial fill upon patientrequest if the prescription is for a schedule II op... Start Date: 06/30/22 Stop Date: 12/27/22 Status: Ordered Nebulizer/Compressor See Instructions, # 1 each, Maintenance, as directed. with all supplies including tubing and mouthpiece, 09/14/19 11:53:40 EST, Compound Start Date: 09/14/19 Status: Ordered Soft knee brace Left Knee Soft knee brace Left Knee, See Instructions, # 1 each, Refills 0, Tot. Refills 0, Maintenance, Diagnosis: M70.5 SABRINA: 99 To be worn while awake, 01/16/23 17:28:00 EDT, Supply, 167, cm, 01/16/23 14:36:00 EDT, Height, 130.9, kg, 12/17/22 10:11:00 EST,... Start Date: 01/16/23 Status: Ordered Symbicort 160mcg/4.5mcg Inhaler 2, puffs, Inhalation, 2 times a day, # 10.2 Gm, Refills 6, Tot. Refills 6, Maintenance, 09/23/22 11:11:00 EST, Aerosol, Route to Pharmacy Electronically, [id number], [facility] #[id number], 167, cm, 09/11/22 11:44:00 EST... Start Date: 09/23/22 Status: Ordered tiZANidine 2 mg oral tablet 1, tablet, By Mouth, 3 times a day, # 90 tablet, Refills 0, Maintenance, 01/13/23 13:01:00 EDT, Route to Pharmacy Electronically, [facility] #[id number], 167, cm, 01/09/23 16:26:00 EDT, Height, 130.9, [...] (less than 100 in lifetime) entered on: 01/16/23 Sex Patient Care team information Care Team Personnel Name: Damian Reyes MD Position: [facility] Resident Member Role: PCP Address: Address: [address] [place] [id number]- Name: Vishal TEJEDA, Zoya Rueda Position: [facility] Onco RN Member Role: Primary Care Nurse Name: Jayde Llanos RN Position: [facility] RN Member Role: Primary Care Nurse Care Team Related Persons Name: DEMETRA RUSLAN Address: home [address] [address] Name: BREANA MCCLENDON Address: home [address] [address] Name: DONTAE BAZZI Address: home [address] [place] [address] Name: CELESTINE BAZZI Address: [address] [place] [address]
--- OUTSIDE RECORDS SUMMARY | 2023-01-22 10:36 | XMS_ITS | Continuity of Care Document ---
Author Name Unknown Organization [facility] Address Unknown Care Team Providers Care Induction Brazer Name Role Phone Lisa Isaac NP Primary Care Physician Encounter [facility] Date(s): 07/02/21 - 08/01/21 [facility] Allergies, Adverse Reactions, Alerts Substance Reaction [...] 12/28/2011:08:00 EDT, Aerosol, Route to Pharmacy Electronically, [id number], [facility]/pharmacy #[id number], 167.1, cm, 12/28/19 11:35:00 EDT, He... Start Date: 12/28/19 Status: Ordered Claritin 10 mg oral tablet 10 mg, 1, tablet, By Mouth, Daily, # 30 tablet, Refills 11, Tot. Refills 11, Maintenance, 06/22/19 10:44:05 EDT, Route to Pharmacy Electronically, [id number], [facility]/pharmacy #[id number] Start Date: 06/22/19 Stop Date: [...] in the system. please go to any [facility] lab., # 100 Gm, 0 Refills, Maintenance, 12/02/20 19:47:00 EST, Gel, [facility]/pharmacy #[id number], Partial fill... Start Date: 12/02/20 Status: Ordered diclofenac potassium 50 mg oral tablet 1 tablet = 50 mg, By Mouth, 3 times a day, PRN for pain, PRN Foot and knee pain. To replace naproxen. [place]. Take with food., # 50 tablet, 1 Refills, Maintenance, 01/02/21 16:27:00 EDT, Tablet, [facility]/pharmacy #[id number], Partial fill upon patient request i... Start Date: 01/02/21 Status: Ordered Flovent HFA 110 mcg/inh inhalation aerosol 2 puffs, Inhalation, 2 times a day, # 12 Gm, 3 Refills, Maintenance, 12/28/19 12:07:00 EDT, Aerosol, [facility]/pharmacy #[id number], 167.1, cm, 12/28/19 11:35:00 EDT, Height, 119.9, [...] 12.5 mg, By Mouth, Daily, label in fijian, # 90 capsule, 1 Refills, Maintenance, 07/22/21 11:52:00 EDT, Capsule, [facility]/pharmacy #[id number], Partial fill upon patient request [...] 09/17/21 18:30:00 EST, 07/17/21 18:29:00 EDT, Cream, [facility]/pharmacy #[id number], Partial fill upon patient request if the prescription is for a schedule II opioid drug., 1 application Topicall... Start Date: 07/17/21 Stop Date: 09/17/21 Status: Ordered lidocaine 5% topical cream 1 application, Topically, 3 times a day, label in fijian, # 45 Gm, 0 Refills, Acute 09/22/21 12:02:00 EST, 09/17/21 18:30:00 EST, Cream, [facility]/pharmacy #[id number], Partial fill upon patient request [...] 20 mg oral tablet See Instructions, in fijian : one tab a day for 10 days then decrease to 1/2 tab a day for 7 d., #14 tablet, 0 Refills, Maintenance, 01/26/20 16:02:00 EDT, Tablet, [facility]/pharmacy #[id number], 167.1, cm, 01/11/20 11:27:00 EDT, [...] 07/04/21 15:33:00 EDT, Route to Pharmacy Electronically, [facility]/pharmacy #[id number], Partial... Start Date: 07/04/21 Stop Date: 07/11/21 Status: Ordered Tylenol Extra Strength 500 mg oral tablet 2 tablet = 1,000 mg, By Mouth, 3 times a day, PRN for fever, not to exceed 3000 mg/day label in fijian, # 120 tablet, 1 Refills, Acute 09/30/21 15:43:00 EST, 05/30/21 15:43:00 EDT, Tablet, [facility]/pharmacy #[id number], Partial fill upon patient request [...]
--- OUTSIDE RECORDS SUMMARY | 2023-01-22 10:36 | XMS_ITS | Continuity of Care Document ---
Author Name Unknown Organization [facility] Address Unknown Care Team Providers Care Kaiwhakahaere Name Role Phone Jonathan CROSS, Tejas Primary Care Physician Encounter [facility] Date(s): 12/10/21 - 02/02/22 [facility] Attending Physician: Tejas Castillo MD Admitting Physician: [...] 12/28/2011:08:00 EDT, Aerosol, Route to Pharmacy Electronically, [id number], [facility]/pharmacy #[id number], 167.1, cm, 12/28/19 11:35:00 EDT, He... Start Date: 12/28/19 Status: Ordered Claritin 10 mg oral tablet 10 mg, 1, tablet, By Mouth, Daily, # 30 tablet, Refills 11, Tot. Refills 11, Maintenance, 06/22/19 10:44:05 EDT, Route to Pharmacy Electronically, [id number], [facility]/pharmacy #[id number] Start Date: 06/22/19 Stop Date: 06/16/20 [...] in the system. please go to any [facility] lab., # 100 Gm, 0 Refills, Maintenance, 12/02/20 19:47:00 EST, Gel, [facility]/pharmacy #[id number], Partial fill... Start Date: 12/02/20 Status: Ordered diclofenac potassium 50 mg oral tablet 1 tablet = 50 mg, By Mouth, 3 times a day, PRN for pain, PRN Foot and knee pain. To replace naproxen. Citizen Of [place]. Take with food., # 50 tablet, 1 Refills, Maintenance, 01/02/21 16:27:00 EDT, Tablet, [facility]/pharmacy #[id number], Partial fill upon patient request i... Start Date: 01/02/21 Status: Ordered Excedrin Migraine oral tablet 2 tablet, By Mouth, Every 6 hours, PRN for headache, # 50 tablet, 0 Refills, Maintenance, 11/18/21 10:12:00 EST, Tablet, [facility]/pharmacy #[id number], Partial fill upon patient request if the prescription is for a schedule II opioid drug., 2 tablet By Mouth Niya... Start Date: 11/18/21 Status: Ordered Flovent HFA 110 mcg/inh inhalation aerosol 2 puffs, Inhalation, 2 times a day, # 12 Gm, 3 Refills, Maintenance, 12/28/19 12:07:00 EDT, Aerosol, [facility]/pharmacy #[id number], 167.1, cm, 12/28/19 11:35:00 EDT, Height, [...] 12.5 mg, By Mouth, Daily, label in english, # 90 capsule, 1 Refills, Maintenance, 07/22/21 11:52:00 EDT, Capsule, [facility]/pharmacy #[id number], Partial fill upon patient request if [...] tablet, 0 Refills, Maintenance, 01/03/22 14:11:00 EDT, [facility] #[id number], Partial fill upon patient request if the prescription is for a schedule II opioid drug., 1 tablet By Mouth 2 times a day,x5 day... Start Date: 01/03/22 Stop Date: 01/08/22 Status: Ordered Paxlovid 150 mg-100 mg oral tablet See Instructions, 2 tabs of nirmatrelvir and 1 tab of ritonavir two times daily for five days, # 30each, 0 Refills, Maintenance, 01/03/22 15:50:00 EDT, [facility] #[id number], Partial fill uponpatient request if the prescription is for a schedu... Start Date: 01/03/22 Status: Ordered predniSONE 20 mg oral tablet See Instructions, in english : one tab a day for 10 days then decrease to 1/2 tab a day for 7 d., #14 tablet, 0 Refills, Maintenance, 01/26/20 16:02:00 EDT, Tablet, [facility]/pharmacy #[id number], 167.1, cm, 01/11/20 11:27:00 EDT, Height, 119.9, kg, 08/31/19 12:... Start Date: 01/26/20 Status: Ordered tiZANidine 2 mg oral tablet 2 mg, 1, tablet, By Mouth, 2 times a day, take only at night at first can take up to 2 times a day if tolerating, # 14 tablet, Refills 0, Tot. Refills 0, Maintenance, 07/04/21 15:33:00 EDT, Route to Pharmacy Electronically, [facility]/pharmacy #[id number], Partial... Start Date: 07/04/21 Stop Date: [...]
--- OUTSIDE RECORDS SUMMARY | 2023-01-22 10:36 | XMS_ITS | Continuity of Care Document ---
Author Name Unknown Organization [facility] Address [address] [place] [address]- Care Team Providers Care Senior Health Consultant Name Role Phone Jonathan CROSS, Tejas Primary Care Physician [phone] Encounter [facility] [place] Date(s): 07/01/21 - 10/27/21 [facility] [address] [place] [address]- Attending Physician: Braulio MARTÍNEZ, Anette Herron Admitting Physician: Braulio MARTÍNEZ, Anette Herron Referring Physician: Marlin MARTÍNEZ, Lisa Allergies, Adverse Reactions, Alerts Substance Reaction [...] 12/28/2011:08:00 EDT, Aerosol, Route to Pharmacy Electronically, [id number], [facility]/pharmacy #[id number], 167.1, cm, 12/28/19 11:35:00 EDT, He... Start Date: 12/28/19 Status: Ordered Claritin 10 mg oral tablet 10 mg, 1, tablet, By Mouth, Daily, # 30 tablet, Refills 11, Tot. Refills 11, Maintenance, 06/22/19 10:44:05 EDT, Route to Pharmacy Electronically, [id number], [facility]/pharmacy #[id number] Start Date: 06/22/19 Stop [...] Refills, Maintenance, 12/02/20 19:47:00 EST, Gel, [facility]/pharmacy #[id number], Partial fill... Start Date: 12/02/20 Status: Ordered diclofenac potassium 50 mg oral tablet 1 tablet = 50 mg, By Mouth, 3 times a day, PRN for pain, PRN Foot and knee pain. To replace naproxen. Kyrgyz. Take with food., # 50 tablet, 1 Refills, Maintenance, 01/02/21 16:27:00 EDT, Tablet, [facility]/pharmacy #[id number], Partial fill upon patient request i... Start Date: 01/02/21 Status: Ordered Flovent HFA 110 mcg/inh inhalation aerosol 2 puffs, Inhalation, 2 times a day, # 12 Gm, 3 Refills, Maintenance, 12/28/19 12:07:00 EDT, Aerosol, [facility]/pharmacy #[id number], 167.1, cm, 12/28/19 [...] 12.5 mg, By Mouth, Daily, label in macedonian, # 90 capsule, 1 Refills, Maintenance, 07/22/21 11:52:00 EDT, Capsule, [facility]/pharmacy #[id number], Partial fill upon [...] 20 mg oral tablet See Instructions, in macedonian : one tab a day for 10 [...] 15:33:00 EDT, Route to Pharmacy Electronically, [facility]/pharmacy #[id number], Partial... Start Date: 07/04/21 Stop Date: 07/11/21 [...]
--- OUTSIDE RECORDS SUMMARY | 2023-01-22 10:36 | XMS_ITS | Continuity of Care Document ---
Author Name Unknown Organization [facility] Address Unknown Care Team Providers Care Band Head Saw Operator Name Role Phone Tejas Castillo MD Primary Care Physician [phone] Encounter [facility] [place] Date(s): 12/10/21 - 01/09/22 [facility] Allergies, Adverse Reactions, Alerts Substance [...] 12/28/2011:08:00 EDT, Aerosol, Route to Pharmacy Electronically, [id number], [facility]/pharmacy #[id number], 167.1, cm, 12/28/19 11:35:00 EDT, He... Start Date: 12/28/19 Status: Ordered Claritin 10 mg oral tablet 10 mg, 1, tablet, By Mouth, Daily, # 30 tablet, Refills 11, Tot. Refills 11, Maintenance, 06/22/19 10:44:05 EDT, Route to Pharmacy Electronically, [id number], [facility]/pharmacy #207 Start Date: 06/22/19 Stop Date: [...] in the system. please go to any [facility] lab., # 100 Gm, 0 Refills, Maintenance, 12/02/20 19:47:00 EST, Gel, [facility]/pharmacy #[id number], Partial fill... Start Date: 12/02/20 Status: Ordered diclofenac potassium 50 mg oral tablet 1 tablet = 50 mg, By Mouth, 3 times a day, PRN for pain, PRN Foot and knee pain. To replace naproxen. Belgian. Take with food., # 50 tablet, 1 Refills, Maintenance, 01/02/21 16:27:00 EDT, Tablet, [facility]/pharmacy #[id number], Partial fill upon patient request i... Start Date: 01/02/21 Status: Ordered Excedrin Migraine oral tablet 2 tablet, By Mouth, Every 6 hours, PRN for headache, # 50 tablet, 0 Refills, Maintenance, 11/18/21 10:12:00 EST, Tablet, [facility]/pharmacy #[id number], Partial fill upon patient request if the prescription is for a schedule II opioid drug., 2 tablet By Mouth Niya... Start Date: 11/18/21 Status: Ordered Flovent HFA 110 mcg/inh inhalation aerosol 2 puffs, Inhalation, 2 times a day, # 12 Gm, 3 Refills, Maintenance, 12/28/19 12:07:00 EDT, Aerosol, [facility]/pharmacy #[id number], 167.1, cm, 12/28/19 11:35:00 EDT, [...] 12.5 mg, By Mouth, Daily, label in polish, # 90 capsule, 1 Refills, Maintenance, 07/22/21 11:52:00 EDT, Capsule, [facility]/pharmacy #207, Partial fill upon patient request [...] tablet, 0 Refills, Maintenance, 01/03/22 14:11:00 EDT, [facility] #[id number], Partial fill upon patient request if the prescription is for a schedule II opioid drug., 1 tablet By Mouth 2 times a day,x5 day... Start Date: 01/03/22 Stop Date: 01/08/22 Status: Ordered Paxlovid 150 mg-100 mg oral tablet See Instructions, 2 tabs of nirmatrelvir and 1 tab of ritonavir two times daily for five days, # 30each, 0 Refills, Maintenance, 01/03/22 15:50:00 EDT, [facility] #[id number], Partial fill uponpatient request if the prescription is for a schedu... Start Date: 01/03/22 Status: Ordered predniSONE 20 mg oral tablet See Instructions, in polish : one tab a day for 10 days then decrease to 1/2 tab a day for 7 d., #14 tablet, 0 Refills, Maintenance, 01/26/20 16:02:00 EDT, Tablet, [facility]/pharmacy #[id number], 167.1, cm, 01/11/20 11:27:00 EDT, [...] 07/04/21 15:33:00 EDT, Route to Pharmacy Electronically, [facility]/pharmacy #[id number], Partial... Start Date: 07/04/21 Stop [...]
--- OUTSIDE RECORDS SUMMARY | 2023-01-22 10:37 | XMS_ITS | Continuity of Care Document ---
Author Name Unknown Organization [facility] Address [address] [place] [address]- Care Team Providers Care Field Machinist Name Role Phone Josr MARTÍNEZ, Rika Yanes Primary Care Physician [phone] Encounter [facility] Date(s): 10/23/20 - 11/22/20 [facility]/[address] [address]- Allergies, Adverse Reactions, Alerts Substance Reaction Severity [...] 12/28/2011:08:00 EDT, Aerosol, Route to Pharmacy Electronically, [id number], [facility]/pharmacy #[id number], 167.1, cm, 12/28/19 11:35:00 EDT, He... Start Date: 12/28/19 Status: Ordered Claritin 10 mg oral tablet 10 mg, 1, tablet, By Mouth, Daily, # 30 tablet, Refills 11, Tot. Refills 11, Maintenance, 06/22/19 10:44:05 EDT, Route to Pharmacy Electronically, [id number], [id number] Start Date: 06/22/19 Stop Date: 06/16/20 Status: Ordered diclofenac 1% topical gel 1 application, Topically, 4 times a day, PRN Pain , Severe, right ankle and left wrist due for labs. orders in the system. please go to any [facility] lab., # 100 Gm, 0 Refills, Maintenance, 11/09/20 15:39:00 EST, Gel, [facility]/pharmacy #[id number], Partial fill... Start Date: 11/09/20 Status: Ordered Flovent HFA 110 mcg/inh inhalation aerosol 2 puffs, Inhalation, 2 times a day, # 12 Gm, 3 Refills, Maintenance, 12/28/19 12:07:00 EDT, Aerosol, [facility]/pharmacy #[id number], 167.1, cm, 12/28/19 11:35:00 [...]
--- OUTSIDE RECORDS SUMMARY | 2023-01-22 10:37 | XMS_ITS | Continuity of Care Document ---
Author Name Unknown Organization [facility] Address Unknown Care Team Providers Care Human Relations Manager Name Role Phone Tejas Castillo MD Primary Care Physician [phone] Encounter [facility] Date(s): 03/11/22 - 04/19/22 [facility] Attending Physician: Tejas Castillo MD Admitting Physician: Tejas Castillo MD Allergies, Adverse Reactions, Alerts Substance Reaction Severity Status Tylenol with Codeine gets red and hot Act mulu SUMAtriptan Persistent Moderate Active Immunizations Given and Recorded Vaccine Date Status Refusal Reason SARS-CoV-2 mRNA (aseryxk-mfxf-mkbfy) vax 02/18/22 Given SARS-CoV-2 (COVID-19) mRNA BNT-162b2 [...] 12/28/2011:08:00 EDT, Aerosol, Route to Pharmacy Electronically, [id number], [facility]/pharmacy #[id number], 167.1, cm, 12/28/19 11:35:00 EDT, He... Start Date: 12/28/19 Status: Ordered Claritin 10 mg oral tablet 10 mg, 1, tablet, By Mouth, Daily, # 30 tablet, Refills 11, Tot. Refills 11, Maintenance, 06/22/19 10:44:05 EDT, Route to Pharmacy Electronically, [id number], [facility]/pharmacy #[id number] Start Date: 06/22/19 [...] the system. please go to any [facility] lab., # 100 Gm, 0 Refills, Maintenance, 12/02/20 19:47:00 EST, Gel, [facility]/pharmacy #[id number], Partial fill... Start Date: 12/02/20 Status: Ordered diclofenac potassium 50 mg oral tablet 1 tablet = 50 mg, By Mouth, 3 times a day, PRN for pain, PRN Foot and knee pain. To replace naproxen. Bermudian. Take with food., # 50 tablet, 1 Refills, Maintenance, 01/02/21 16:27:00 EDT, Tablet, [facility]/pharmacy #[id number], Partial fill upon patient request i... Start Date: 01/02/21 Status: Ordered Excedrin Migraine oral tablet 2 tablet, By Mouth, Every 6 hours, PRN for headache, # 50 tablet, 0 Refills, Maintenance, 11/18/21 10:12:00 EST, Tablet, [facility]/pharmacy #[id number], Partial fill upon [...] 12.5 mg, By Mouth, Daily, label in luxembourgish, # 90 capsule, 1 Refills, Maintenance, 07/22/21 11:52:00 EDT, Capsule, [facility]/pharmacy #[id number], Partial fill upon patient request if the [...] 8:50:00 EDT, Aerosol, Route to Pharmacy Electronically, [id number], [facility] #[id number], 167.1, cm, 02/18/22 8:13:00 EDT,... Start Date: [...]
--- OUTSIDE RECORDS SUMMARY | 2023-01-22 10:37 | XMS_ITS | Continuity of Care Document ---
Author Name Unknown Organization [facility] Address [address] [place] [address]- Care Team Providers Care Laboratory Operations Coordinator Name Role Phone Damian Reyes MD Primary Care Phys[id number] Date(s): 12/18/22 - 01/17/[address] [address] Attending Physician: Admmary kay, Abdullahi8 Admitting Physician: Admtr, Abdullahi8 Referring Physician: Admtr, Ar8 Allergies, Adverse Reactions, Alerts Substance Reaction Severity Status Tylenol with Codeine gets red and hot Act mulu SUMAtriptan 1 Persistent Moderate Active 1Vomiting, weakness, flushing Immunizations Given and Recorded Vaccine Date Status Refusal Reason [id number]-[id number] 12y+ bivalent booster vax 01/02/23 Given SARS-CoV-2 mRNA (nfutnqd-bmyn-fbskh) vax 02/18/22 Given SARS-CoV-2 (COVID-19) mRNA BNT-162b2 [...] 08/04/2214:56:00 EDT, Aerosol, Route to Pharmacy Electronically, [id number], [facility] #[id number], 167, cm, 08/04/22 14:42:00... Start Date: 08/04/22 Status: Ordered AutoCPAP 8-20 with heated humidification AutoCPAP 8-20 with heated humidification, See Instructions, # 1 each, Refills 0, Tot. Refills 0, Maintenance, use overnight and naps from [facility], 12/10/22 13:36:00 EST, Compound Start Date: 12/10/22 [...] Gm, 0 Refills, Maintenance, 01/02/23 11:21:00 EDT, [facility] #[id number], Partial fill upon patient request if the prescription is for a schedule II opioid drug., 167, cm, 01/02/23 10:... Start Date: 01/02/23 Stop Date: 02/01/23 Status: Ordered enalapril 5 mg oral tablet 5 mg, 1, tablet, By Mouth, Daily, # 30 tablet, Refills 3, Tot. Refills 3, Maintenance, 11/06/22 15:19:00 EST, Route to Pharmacy Electronically, [facility] #[id number], Partial fill upon patient request if the [...] 01/30/23 15:32:00 EDT, 01/16/23 15:32:00 EDT, Lotion, [facility] #[id number], Partial fill upon patient request ifthe prescription is for a schedule II opioid drug.,... Start Date: 01/16/23 Stop Date: 01/30/23 Status: Ordered meloxicam 7.5 mg oral tablet 1 tablet = 7.5 mg, By Mouth, 2 times a day, # 28 tablet, 0 Refills, Maintenance, 01/16/23 15:29:00 EDT, Tablet, [facility] #[id number], Partial fill upon patient request if the prescription is for a schedule II opioid drug., 167, cm, 01/16/23 14:... Start Date: 01/16/23 Stop Date: 01/30/23 Status: Ordered montelukast 10 mg oral tablet 10 mg, 1, tablet, By Mouth, Daily, # 30 tablet, Refills 5, Tot. Refills 5, Maintenance, 06/30/22 10:47:00 EDT, Route to Pharmacy Electronically, [facility] #[id number], Partial fill upon patientrequest if the prescription [...] 11:11:00 EST, Aerosol, Route to Pharmacy Electronically, [id number], [facility] #[id number], 167, cm, 09/11/22 11:44:00 EST... Start Date: 09/23/22 Status: Ordered tiZANidine 2 mg oral tablet 1, tablet, By Mouth, 3 times a day, # 90 tablet, Refills 0, Maintenance, 01/13/23 13:01:00 EDT, Route to Pharmacy Electronically, [facility] #[id number], 167, cm, 01/09/23 16:26:00 EDT, Height, 130.9, [...] Team Personnel Name: Damian Reyes MD Position: [facility] Resident Member Role: PCP Address: Address: [address] [place] [id number] Name: Zoya Rodgers RN Position: [facility] Onco RN Member Role: Primary Care Nurse Name: Jayde Llanos RN Position: [facility] RN Member Role: Primary Care Nurse Care Team Related Persons Name: RUSLAN MCCRARY Address: [address] [address] Name: BREANA MCCLENDON Address: home [address] [facility] [address] [place] [address] Name: DONTAE BAZZI Address: home [address] [place] [address] Name: CELESTINE BAZZI Address: home [address] [place] [address]
--- OUTSIDE RECORDS SUMMARY | 2023-01-22 10:37 | XMS_ITS | Continuity of Care Document ---
Author Name Unknown Organization [facility] Address [address] [place] [address]- Care Team Providers Care Powerhouse Operator Name Role Phone Josr MARTÍNEZ, Rika Yanes Primary Care Physician [place] [facility] [place] - 02/08/21 [facility]/[address] [address]- Allergies, Adverse Reactions, Alerts Substance Reaction Severity [...] 12/28/2011:08:00 EDT, Aerosol, Route to Pharmacy Electronically, [id number], [facility]/pharmacy #[id number], 167.1, cm, 12/28/19 11:35:00 EDT, He... Start Date: 12/28/19 Status: Ordered baclofen 10 mg oral tablet 10 mg, 1, tablet, By Mouth, 3 times a day, # 63 tablet, Refills 0, Tot. Refills 0, Maintenance, 01/08/21 9:14:00 EDT, Route to Pharmacy Electronically, [facility]/pharmacy #[id number], Partial fill upon patient request if the prescription is for a schedule II opio... Start Date: 01/08/21 Stop Date: 01/29/21 Status: Ordered Claritin 10 mg oral tablet 10 mg, 1, tablet, By Mouth, Daily, # 30 tablet, Refills 11, Tot. Refills 11, Maintenance, 06/22/19 10:44:05 EDT, Route to Pharmacy Electronically, [id number], [facility]/pharmacy #[id number] Start Date: 06/22/19 Stop Date: 06/16/20 Status: Ordered diclofenac 1% topical gel 1 application, Topically, 4 times a day, PRN Pain , Severe, right ankle and left wrist due for labs. orders in the system. please go to any [facility] lab., # 100 Gm, 0 Refills, Maintenance, 12/02/20 19:47:00 EST, Gel, [facility]/pharmacy #[id number], Partial fill... Start Date: 12/02/20 Status: Ordered diclofenac potassium 50 mg oral tablet 1 tablet = 50 mg, By Mouth, 3 times a day, PRN for pain, PRN Foot and knee pain. To replace naproxen. Nigerian. Take with food., # 50 tablet, 1 Refills, Maintenance, 01/02/21 16:27:00 EDT, Tablet, [facility]/pharmacy #[id number], Partial fill upon patient request i... Start Date: 01/02/21 Status: Ordered Flovent HFA 110 mcg/inh inhalation aerosol 2 puffs, Inhalation, 2 times a day, # 12 Gm, 3 Refills, Maintenance, 12/28/19 12:07:00 EDT, Aerosol, [facility]/pharmacy #[id number], 167.1, cm, 12/28/19 11:35:00 EDT, [...] capsule, 0 Refills, Maintenance, 02/06/21 8:15:00 EDT, [facility]ORE [id number], 167.1, cm, 01/31/21 14:36:00 EDT, Height, 125.45, kg, 11/28/20 15:44:00 EST, Dry Weight Start Date: 02/06/21 Status: Ordered predniSONE 20 mg oral tablet See Instructions, in zimbabwean : one tab a day for 10 days then decrease to 1/2 tab a day for 7 d., #14 tablet, 0 Refills, Maintenance, 01/26/20 16:02:00 EDT, Tablet, [facility]/pharmacy #[id number], 167.1, cm, 01/11/20 11:27:00 EDT, [...]
--- OUTSIDE RECORDS SUMMARY | 2023-01-22 10:37 | XMS_ITS | Continuity of Care Document ---
Author Name Unknown Organization [facility] Address Unknown Care Team Providers Care Psychiatric Nurse Name Role Phone Tejas Castillo MD Primary Care Physician [phone] Encounter [facility] Date(s): 01/17/22 - 02/16/22 [facility] Allergies, Adverse Reactions, Alerts Substance Reaction Severity [...] 12/28/2011:08:00 EDT, Aerosol, Route to Pharmacy Electronically, [id number], [facility]/pharmacy #[id number], 167.1, cm, 12/28/19 11:35:00 EDT, He... Start Date: 12/28/19 Status: Ordered Claritin 10 mg oral tablet 10 mg, 1, tablet, By Mouth, Daily, # 30 tablet, Refills 11, Tot. Refills 11, Maintenance, 06/22/19 10:44:05 EDT, Route to Pharmacy Electronically, [id number], [facility]/pharmacy #[id number] Start Date: 06/22/19 Stop [...] the system. please go to any [facility] lab., # 100 Gm, 0 Refills, Maintenance, 12/02/20 19:47:00 EST, Gel, [facility]/pharmacy #[id number], Partial fill... Start Date: 12/02/20 Status: Ordered diclofenac potassium 50 mg oral tablet 1 tablet = 50 mg, By Mouth, 3 times a day, PRN for pain, PRN Foot and knee pain. To replace naproxen. Qatari. Take with food., # 50 tablet, 1 Refills, Maintenance, 01/02/21 16:27:00 EDT, Tablet, [facility]/pharmacy #[id number], Partial fill upon patient request i... Start Date: 01/02/21 Status: Ordered Excedrin Migraine oral tablet 2 tablet, By Mouth, Every 6 hours, PRN for headache, # 50 tablet, 0 Refills, Maintenance, 11/18/21 10:12:00 EST, Tablet, [facility]/pharmacy #[id number], Partial fill upon patient request if the prescription is for a schedule II opioid drug., 2 tablet By Mouth Niya... Start Date: 11/18/21 Status: Ordered Flovent HFA 110 mcg/inh inhalation aerosol 2 puffs, Inhalation, 2 times a day, # 12 Gm, 3 Refills, Maintenance, 12/28/19 12:07:00 EDT, Aerosol, [facility]/pharmacy #[id number], 167.1, cm, 12/28/19 11:35:00 [...] 12.5 mg, By Mouth, Daily, label in georgian, # 90 capsule, 1 Refills, Maintenance, 07/22/21 11:52:00 EDT, Capsule, [facility]/pharmacy #207, Partial fill upon patient request [...] tablet, 0 Refills, Maintenance, 01/03/22 14:11:00 EDT, [facility] #[id number], Partial fill upon patient request if the prescription is for a schedule II opioid drug., 1 tablet By Mouth 2 times a day,x5 day... Start Date: 01/03/22 Stop Date: 01/08/22 Status: Ordered Paxlovid 150 mg-100 mg oral tablet See Instructions, 2 tabs of nirmatrelvir and 1 tab of ritonavir two times daily for five days, # 30each, 0 Refills, Maintenance, 01/03/22 15:50:00 EDT, [id number], Partial fill uponpatient request if the prescription is for a schedu... Start Date: 01/03/22 Status: Ordered predniSONE 20 mg oral tablet See Instructions, in georgian : one tab a day for 10 days then decrease to 1/2 tab a day for 7 d., #14 tablet, 0 Refills, Maintenance, 01/26/20 16:02:00 EDT, Tablet, [facility]/pharmacy #[id number], 167.1, cm, 01/11/20 11:27:00 [...] 07/04/21 15:33:00 EDT, Route to Pharmacy Electronically, [facility]/pharmacy #[id number], Partial... Start Date: 07/04/21 [...]
--- OUTSIDE RECORDS SUMMARY | 2023-01-22 10:37 | XMS_ITS | Continuity of Care Document ---
Author Name Unknown Organization [facility] Address [address] [place] [address]- Care Team Providers Care Home Health Nurse Name Role Phone Rika Ovalles NP Primary Care Physician [phone] [place] [facility] [place] Date(s): 08/08/20 - 10/04/20 [facility] [address] [place] [address]- Attending Physician: Ailyn MARTÍNEZ, Tara Quiles Admitting Physician: Tara Robertson NP Referring Physician: Rika Ovalles NP Allergies, [...] 12/28/2011:08:00 EDT, Aerosol, Route to Pharmacy Electronically, [id number], [facility]/pharmacy #[id number], 167.1, cm, 12/28/19 11:35:00 EDT, He... Start Date: 12/28/19 Status: Ordered Claritin 10 mg oral tablet 10 mg, 1, tablet, By Mouth, Daily, # 30 tablet, Refills 11, Tot. Refills 11, Maintenance, 06/22/19 10:44:05 EDT, Route to Pharmacy Electronically, [id number], [id number] Start Date: 06/22/19 Stop Date: 06/16/20 Status: Ordered diclofenac 1% topical gel 1 application, Topically, 4 times a day, PRN Pain , Severe, right ankle and left wrist due for labs. orders in the system. please go to any [facility] lab., # 100 Gm, 0 Refills, Maintenance, 10/02/20 11:22:00 EST, Gel, [facility]/pharmacy #[id number], Partial fill... Start Date: 10/02/20 Status: [...] 20 mg oral tablet See Instructions, in tamazight : one tab a day for 10 [...]
--- OUTSIDE RECORDS SUMMARY | 2023-01-22 10:37 | XMS_ITS | Continuity of Care Document ---
Author Name Unknown Organization [facility] Address [address] [place] [address] [address] [place] [address]- Care Team Providers Care Offshore Wind Turbine Technician Name Role Phone Josr MARTÍNEZ, Rika Yanes Primary Care Physician En[place] [facility] [place] Date(s): 01/04/20 - 01/14/[address] [place] [address]- [facility] Attending Physician: Admtr, Abdullahi8 Admitting Physician: Admtr, Ar8 Referring Physician: Admtr, Ar8 Allergies, Adverse Reactions, [...] 12/28/2011:08:00 EDT, Aerosol, Route to Pharmacy Electronically, [id number], [facility]/pharmacy #[id number], 167.1, cm, 12/28/19 11:35:00 EDT, He... Start Date: 12/28/19 Status: Ordered Claritin 10 mg oral tablet 10 mg, 1, tablet, By Mouth, Daily, # 30 tablet, Refills 11, Tot. Refills 11, Maintenance, 06/22/19 10:44:05 EDT, Route to Pharmacy Electronically, [id number], [facility]/pharmacy #[id number] Start Date: 06/22/19 Stop Date: 06/16/20 Status: Ordered Flovent HFA 110 mcg/inh inhalation aerosol 2 puffs, Inhalation, 2 times a day, # 12 Gm, 3 Refills, Maintenance, 12/28/19 12:07:00 EDT, Aerosol, [facility]/pharmacy #[id number], 167.1, cm, 12/28/19 [...]
--- OUTSIDE RECORDS SUMMARY | 2023-01-22 10:37 | XMS_ITS | Continuity of Care Document ---
Author Name Unknown Organization [facility] Address Unknown Care Team Providers Care Oracle R12 Developer Name Role Phone Tejas Castillo MD Primary Care Physician [place] [facility] [place](s[place] 09/25/21 - 10/25/21 [facility] Attending Physician: Admtr, Poonam Admitting Physician: Admtr, Ar8 Referring Physician: Admtr, [...] 12/28/2011:08:00 EDT, Aerosol, Route to Pharmacy Electronically, [id number], [facility]/pharmacy #[id number], 167.1, cm, 12/28/19 11:35:00 EDT, He... Start Date: 12/28/19 Status: Ordered Claritin 10 mg oral tablet 10 mg, 1, tablet, By Mouth, Daily, # 30 tablet, Refills 11, Tot. Refills 11, Maintenance, 06/22/19 10:44:05 EDT, Route to Pharmacy Electronically, [id number], [facility]/pharmacy #[id number] Start Date: 06/22/19 Stop [...] in the system. please go to any [facility] lab., # 100 Gm, 0 Refills, Maintenance, 12/02/20 19:47:00 EST, Gel, [facility]/pharmacy #[id number], Partial fill... Start Date: 12/02/20 Status: Ordered diclofenac potassium 50 mg oral tablet 1 tablet = 50 mg, By Mouth, 3 times a day, PRN for pain, PRN Foot and knee pain. To replace naproxen. Indian. Take with food., # 50 tablet, 1 Refills, Maintenance, 01/02/21 16:27:00 EDT, Tablet, [facility]/pharmacy #[id number], Partial fill upon patient request i... Start Date: 01/02/21 Status: Ordered Flovent HFA 110 mcg/inh inhalation aerosol 2 puffs, Inhalation, 2 times a day, # 12 Gm, 3 Refills, Maintenance, 12/28/19 12:07:00 EDT, Aerosol, [facility]/pharmacy #[id number], 167.1, cm, 12/28/19 11:35:00 [...] 12.5 mg, By Mouth, Daily, label in british, # 90 capsule, 1 Refills, Maintenance, 07/22/21 11:52:00 EDT, Capsule, [facility]/pharmacy #207, Partial fill upon patient [...] mg oral tablet See Instructions, in british : one tab a day for 10 days then decrease to 1/2 tab a day for 7 d., #14 tablet, 0 Refills, Maintenance, 01/26/20 16:02:00 EDT, Tablet, [facility]/pharmacy #[id number], 167.1, cm, 01/11/20 11:27:00 [...] 07/04/21 15:33:00 EDT, Route to Pharmacy Electronically, [facility]/pharmacy #1201, Partial... Start Date: 07/04/21 Stop Date: 07/11/21 [...]
--- OUTSIDE RECORDS SUMMARY | 2023-01-22 10:37 | XMS_ITS | Continuity of Care Document ---
Author Name Unknown Organization [facility] Address [address] [place] [address]- Care Team Providers Care Handle Bender Name Role Phone Damian Reyes MD Primary Care Physician Encounter [facility] [place] Date(s): 10/10/22 - 11/09/22 [facility]/[place] [address]- [place] Allergies, Adverse Reactions, Alerts Substance Reaction Severity Status Tylenol with Codeine gets red and hot Act mulu SUMAtriptan 1 Persistent Moderate Active 1Vomiting, weakness, flushing Immunizations Given and Recorded Vaccine Date Status Refusal Reason SARS-CoV-2 mRNA (ayfpfgl-grql-cbxil) vax 02/18/22 Given SARS-CoV-2 (COVID-19) mRNA BNT-162b2 [...] 08/04/2214:56:00 EDT, Aerosol, Route to Pharmacy Electronically, [id number], [facility] #[id number], 167, cm, 08/04/22 14:42:00... Start Date: 08/04/22 [...] 11/06/22 15:19:00 EST, Route to Pharmacy Electronically, [facility] #[id number], Partial fill upon patient request if the [...] 06/30/22 10:47:00 EDT, Route to Pharmacy Electronically, [facility] #[id number], Partial fill upon patientrequest if the prescription [...] 11:11:00 EST, Aerosol, Route to Pharmacy Electronically, [id number], [facility] #[id number], 167, cm, 09/11/22 11:44:00 EST... Start Date: [...] Team Personnel Name: Damian Reyes MD Position: [facility] Resident Member Role: PCP Address: Address: [address] [place] [id number] Name: Zoya Rodgers RN Position: [facility] Onco RN Member Role: Primary Care Nurse Name: Jayde Llanos RN Position: [facility] RN Member Role: Primary Care Nurse Care Team Related Persons Name: RUSLAN MCCRARY Address: [address] [address] Name: BREANA MCCLENDON Address: [address] [address] Name: DONTAE BAZZI Address: home [address] [place] [address] Name: CELESTINE BAZZI Address: home [address] [place] [address]
--- OUTSIDE RECORDS SUMMARY | 2023-01-22 10:37 | XMS_ITS | Continuity of Care Document ---
Author Name Unknown Organization [facility] Address [address] [place] [address]- Care Team Providers Care Crm Campaign Manager Name Role Phone Tejas Castillo MD Primary Care Physician [place] [facility] [place]/08/22 - 03/08/[address] [address]- Discharge Disposition: A-D/C Home Attending Physician: Hamilton Alejo MD Admitting Physician: Hamilton Alejo MD Referring Physician: Not on Staff, Referring MD Allergies, Adverse Reactions, Alerts Substance Reaction Severity Status SUMAtriptan Persistent Moderate Active Tylenol with Codeine gets red and hot Act mulu Immunizations Given and Recorded Vaccine Date Status Refusal Reason SARS-CoV-2 mRNA (pecmjfn-dwrb-kpsky) vax 02/18/22 Given SARS-CoV-2 (COVID-19) mRNA BNT-162b2 [...] 12/28/2011:08:00 EDT, Aerosol, Route to Pharmacy Electronically, [id number], [facility]/pharmacy #207, 167.1, cm, 12/28/19 11:35:00 EDT, He... Start Date: 12/28/19 Status: Ordered Claritin 10 mg oral tablet 10 mg, 1, tablet, By Mouth, Daily, # 30 tablet, Refills 11, Tot. Refills 11, Maintenance, 06/22/19 10:44:05 EDT, Route to Pharmacy Electronically, [id number], [facility]/pharmacy #207 Start Date: 06/22/19 Stop Date: [...] in the system. please go to any [facility] lab., # 100 Gm, 0 Refills, Maintenance, 12/02/20 19:47:00 EST, Gel, [facility]/pharmacy #207, Partial fill... Start Date: 12/02/20 Status: Ordered diclofenac potassium 50 mg oral tablet 1 tablet = 50 mg, By Mouth, 3 times a day, PRN for pain, PRN Foot and knee pain. To replace naproxen. Sao [place]omean. Take with food., # 50 tablet, 1 Refills, Maintenance, 01/02/21 16:27:00 EDT, Tablet, [facility]/pharmacy #[id number], Partial fill upon patient request i... Start Date: 01/02/21 Status: Ordered Excedrin Migraine oral tablet 2 tablet, By Mouth, Every 6 hours, PRN for headache, # 50 tablet, 0 Refills, Maintenance, 11/18/21 10:12:00 EST, Tablet, [facility]/pharmacy #[id number], Partial fill upon patient [...] 12.5 mg, By Mouth, Daily, label in uzbek, # 90 capsule, 1 Refills, Maintenance, 07/22/21 11:52:00 EDT, Capsule, [facility]/pharmacy #[id number], Partial fill upon patient request if the prescriptionis for a schedule II opioid drug., 167.1, cm, 07/22... Start Date: 07/22/21 Status: Ordered Medrol Dosepak 4 mg oral tablet 1 pack/packet, By Mouth, Daily, for 6 days, as directed on package labeling, # 21 tablet, 5 Refills, Acute 04/02/22 12:07:00 EDT, 02/25/22 12:07:00 EDT, Tablet, [facility] #[id number], Partial fill upon patient request if the [...] 8:50:00 EDT, Aerosol, Route to Pharmacy Electronically, [id number], [facility] #[id number], 167.1, cm, 02/18/22 8:13:00 EDT,... Start Date: [...] Varicose veins of both lower extremities(Confirmed) Active Vital Signs Most recent to oldest [Reference Range]: 1 2 Oxygen Saturation [94-100 %] 98 % (03/08/22 4:24 PM) 100 % (03/08/22 3:41 PM) Pulse Rate [55-90 bpm] 84 bpm (03/08/22 4:24 PM) 89 bpm (03/08/22 3:41 PM) Blood Pressure [90-138/55-84 mm Hg] 135/ 93mm Hg (03/08/22 4:24 PM) Respiratory Rate [16-30 br/min] 15 br/mi n *L* (03/08/22 4:24 PM) Temperature [96.8-100.4 DegF] 98.6 DegF (03/08/22 4:24 PM) Mode of Delivery (Oxygen) Room air (03/08/22 4:24 PM) Blood pressure sites Arm, left (03/08/22 4:24 PM) Temperature Route Oral (03/08/22 4:24 PM) Social History Social History Type Response Smoking Status Never (less than 100 in lifetime); Exposure to Secondhand Smoke: No entered on: 01/31/21 Sex
--- OUTSIDE RECORDS SUMMARY | 2023-01-22 10:37 | XMS_ITS | Continuity of Care Document ---
Author Name Unknown Organization [facility] Address Unknown Care Team Providers Care Cardiology Rn Name Role Phone Tejas Castillo MD Primary Care Physician [phone] Encounter [facility] [place] Date(s): 02/24/22 - 03/26/22 [facility] Allergies, Adverse Reactions, Alerts Substance Reaction Severity Status SUMAtriptan Persistent Moderate Active Tylenol with Codeine gets red and hot Act mulu Immunizations Given and Recorded Vaccine Date Status Refusal Reason SARS-CoV-2 mRNA (hvdszvd-tkrq-klwcu) vax 02/18/22 Given SARS-CoV-2 (COVID-19) mRNA BNT-162b2 [...] 12/28/2011:08:00 EDT, Aerosol, Route to Pharmacy Electronically, [id number], [facility]/pharmacy #[id number], 167.1, cm, 12/28/19 11:35:00 EDT, He... Start Date: 12/28/19 Status: Ordered Claritin 10 mg oral tablet 10 mg, 1, tablet, By Mouth, Daily, # 30 tablet, Refills 11, Tot. Refills 11, Maintenance, 06/22/19 10:44:05 EDT, Route to Pharmacy Electronically, [id number], [facility]/pharmacy #2071 Start Date: [...] in the system. please go to any [facility] lab., # 100 Gm, 0 Refills, Maintenance, 12/02/20 19:47:00 EST, Gel, [facility]/pharmacy #207, Partial fill... Start Date: 12/02/20 Status: Ordered diclofenac potassium 50 mg oral tablet 1 tablet = 50 mg, By Mouth, 3 times a day, PRN for pain, PRN Foot and knee pain. To replace naproxen. Portuguese. Take with food., # 50 tablet, 1 [...] 12.5 mg, By Mouth, Daily, label in urdu, # 90 capsule, 1 Refills, Maintenance, 07/22/21 11:52:00 EDT, Capsule, [facility]/pharmacy #1531, Partial fill upon patient request if the prescriptionis for a schedule II opioid drug., 167.1, cm, 07/22... Start Date: 07/22/21 Status: Ordered Medrol Dosepak 4 mg oral tablet 1 pack/packet, By Mouth, Daily, for 6 days, as directed on package labeling, # 21 tablet, 5 Refills, Acute 04/02/22 12:07:00 EDT, 02/25/22 12:07:00 EDT, Tablet, [facility] #[id number], Partial fill upon patient request if the [...] 8:50:00 EDT, Aerosol, Route to Pharmacy Electronically, [id number], [facility] #[id number], 167.1, cm, 02/18/22 8:13:00 EDT,... Start Date: [...]
--- OUTSIDE RECORDS SUMMARY | 2023-01-22 10:37 | XMS_ITS | Continuity of Care Document ---
Author Name Unknown Organization [facility] ter Address [address] [place] [address]- Care Team Providers Care Websphere Developer Name Role Phone Tejas Castillo MD Primary Care Physician [phone] Encounter [facility] [place] Date(s): 04/19/22 - 04/20/[address] [address]- Encounter Diagnosis Appendicitis(Final) - 04/19/22 Discharge Disposition: A-D/C Home Attending Physician: Kya oBo MD Admitting Physician: Kya Boo MD Referring Physician: Not on Staff, Referring MD Allergies, Adverse Reactions, Alerts Substance Reaction Severity Status SUMAtriptan Persistent Moderate Active Tylenol with Codeine gets red and hot Act mulu Immunizations Given and Recorded Vaccine Date Status Refusal Reason SARS-CoV-2 mRNA (wzpuegd-[id number]-gnfgw) vax 02/18/22 Given SARS-CoV-2 (COVID-19) mRNA BNT-162b2 [...] 12/28/2011:08:00 EDT, Aerosol, Route to Pharmacy Electronically, [id number], [facility]/pharmacy #[id number], 167.1, cm, 12/28/19 11:35:00 EDT, He... Start Date: 12/28/19 Status: Ordered Claritin 10 mg oral tablet 10 mg, 1, tablet, By Mouth, Daily, # 30 tablet, Refills 11, Tot. Refills 11, Maintenance, 06/22/19 10:44:05 EDT, Route to Pharmacy Electronically, [id number], [facility]/pharmacy #[id number] Start Date: 06/22/19 Stop Date: [...] in the system. please go to any [facility] lab., # 100 Gm, 0 Refills, Maintenance, 12/02/20 19:47:00 EST, Gel, [facility]/pharmacy #[id number], Partial fill... Start Date: 12/02/20 Status: Ordered diclofenac potassium 50 mg oral tablet 1 tablet = 50 mg, By Mouth, 3 times a day, PRN for pain, PRN Foot and knee pain. To replace naproxen. Libyan. Take with food., # 50 tablet, 1 Refills, Maintenance, 01/02/21 16:27:00 EDT, Tablet, [facility]/pharmacy #[id number], Partial fill upon patient request i... Start Date: 01/02/21 Status: Ordered Excedrin Migraine oral tablet 2 tablet, By Mouth, Every 6 hours, PRN for headache, # 50 tablet, 0 Refills, Maintenance, 11/18/21 10:12:00 EST, Tablet, [facility]/pharmacy #[id number], Partial fill upon patient request [...] 12.5 mg, By Mouth, Daily, label in algerian, # 90 capsule, 1 Refills, Maintenance, 07/22/21 11:52:00 EDT, Capsule, [facility]/pharmacy #[id number], Partial fill upon patient request if the prescriptionis for a schedule II opioid drug., 167.1, cm, 07/22... Start Date: 07/22/21 Status: Ordered Nebulizer/Compressor See Instructions, # 1 each, Maintenance, as directed. with all supplies including tubing and mouthpiece, 09/14/19 11:53:40 EST, Compound Start Date: 09/14/19 Status: Ordered oxyCODONE 5 mg oral tablet 5 mg, Tablet, By Mouth, Every 4 hours, PRN for Pain , Severe, Routine, 04/19/22 14:52:00 EDT Start Date: 04/19/22 Stop Date: 04/21/22 Status: Discontinued oxyCODONE 5 mg oral tablet 5 mg, 1, tablet, By Mouth, Every 4 hours, PRN, # 20 tablet, Refills 0, Tot. Refills 0, Acute 04/21/23 15:34:00 EDT, Pain , Severe, 04/20/22 15:33:00 EDT, Route to Pharmacy Electronically, [facility], Partial fill upon patient request if... Start Date: 04/20/22 Stop Date: 04/21/23 Status: Ordered Symbicort 80mcg/4.5mcg Inhaler 2, puffs, Inhalation, 2 times a day, # 1 each, Refills 3, Tot. Refills 3, Maintenance, 02/18/22 8:50:00 EDT, Aerosol, Route to Pharmacy Electronically, [id number], [facility] #[id number], 167.1, cm, 02/18/22 8:13:00 EDT,... Start Date: 02/18/22 Stop Date: 06/18/22 Status: Ordered Tylenol 325 mg oral tablet 650 mg, Tablet, By Mouth, 04/20/22 12:00:00 EDT Start Date: 04/20/22 Stop Date: 04/20/22 Status: Completed Tylenol 325 mg oral tablet 650 mg, 2, tablet, By Mouth, Every 4 hours, # 50 tablet, Refills 0, Tot. Refills 0, Acute 04/21/23 15:34:00 EDT, 04/20/22 15:33:00 EDT, Route to Pharmacy Electronically, [facility], Partial fill upon patient request if [...] Varicose veins of both lower extremities(Confirmed) Active Procedures Procedure Date Related Diagnosis Body Site Status Laparoscopy, surgical, appendectomy 04/20/22 Completed Vital Signs Most recent to oldest [Reference Range]: 1 2 3 Height 167 cm (04/20/22 3:24 PM) 167 cm (04/20/22 7:10 AM) 167 cm (04/20/22 4:33 AM) Weight 130.7 kg (04/19/22 11:36 PM) 130.7 kg (04/19/22 9:14 PM) Oxygen Saturation [94-100 %] 95 % (04/20/22 3:24 PM) 96 % (04/20/22 7:10 AM) 97 % (04/20/22 4:33 AM) Pulse Rate [55-90 bpm] 80 bpm (04/20/22 3:24 PM) 74 bpm (04/20/22 7:10 AM) 69 bpm (04/20/22 4:33 AM) Body Mass Index [18.5-24.99] 46.86 *>HHI* (04/19/22 11:36 PM) 46.86 *>HHI* (04/19/22 9:14 PM) Blood Pressure [90-138/55-84 mm Hg] 141/78mm Hg *H* (04/20/22 3:24 PM) 125/73mm Hg (04/20/22 7:10 AM) 131/68mm Hg (04/20/22 4:33 AM) Respiratory Rate [16-30 br/min] 15 br/min *L* (04/20/22 4:42 PM) 18 br/min (04/20/22 3:24 PM) 15 br/min *L* (04/20/22 1:01 PM) Temperature [96.8-100.4 DegF] 98.0 DegF (04/20/22 3:24 PM) 97.6 DegF (04/20/22 7:10 AM) 97.7 DegF (04/20/22 4:33 AM) Liters per Minute 2.5 L/min (04/20/22 7:10 AM) 2 L/min (04/20/22 4:33 AM) 6 L/min (04/20/22 2:45 AM) Mode of Delivery (Oxygen) Room air (04/20/22 3:24 PM) Nasal cannula (04/20/22 7:10 AM) Nasal cannula (04/20/22 4:33 AM) Blood pressure sites Arm, right (04/20/22 3:24 PM) Arm, left (04/20/22 7:10 AM) Arm, left (04/20/22 4:33 AM) Temperature Route Oral (04/20/22 3:24 PM) Oral (04/20/22 7:10 AM) Oral (04/20/22 4:33 AM) Dry Weight 130.7 kg (04/19/22 9:14 PM) Social History Social History Type Response Smoking Status Never (less than 100 in lifetime); Exposure to Secondhand Smoke: No entered on: 01/31/21 Sex
--- OUTSIDE RECORDS SUMMARY | 2023-01-22 10:37 | XMS_ITS | Continuity of Care Document ---
Author Name Unknown Organization [facility] Address [address] [place] [address]- Care Team Providers Care Senior Consulting Manager Name Role Phone Josr MARTÍNEZ, Rika Yanes Primary Care Physician Encounter [facility] [place] Date(s): 04/03/21 - 05/03/21 [facility]/[address] [address]- Allergies, Adverse Reactions, Alerts Substance Reaction Severity [...] 12/28/2011:08:00 EDT, Aerosol, Route to Pharmacy Electronically, [id number], [facility]/pharmacy #[id number], 167.1, cm, 12/28/19 11:35:00 EDT, He... Start Date: 12/28/19 Status: Ordered Claritin 10 mg oral tablet 10 mg, 1, tablet, By Mouth, Daily, # 30 tablet, Refills 11, Tot. Refills 11, Maintenance, 06/22/19 10:44:05 EDT, Route to Pharmacy Electronically, [id number], [facility]/pharmacy #[id number] Start Date: 06/22/19 Stop Date: 06/16/20 Status: Ordered diclofenac 1% topical gel 1 application, Topically, 4 times a day, PRN Pain , Severe, right ankle and left wrist due for labs. orders in the system. please go to any [facility] lab., # 100 Gm, 0 Refills, Maintenance, [...] 3 Refills, Maintenance, 12/28/19 12:07:00 EDT, Aerosol, [facility]/pharmacy #[id number], 167.1, cm, 12/28/19 11:35:00 [...] Refills, Maintenance, 03/08/21 11:31:00 EDT, [id number], 167.1, cm, 01/31/21 14:36:00 EDT, Height, 125.45, kg, 11/28/20 15:44:00 EST, Dry Weight Start Date: 03/08/21 Status: Ordered predniSONE 20 mg oral tablet See Instructions, in kazakh : one tab a day for 10 days then decrease to 1/2 tab a day for 7 d., #14 tablet, 0 Refills, Maintenance, 01/26/20 16:02:00 EDT, Tablet, [facility]/pharmacy #[id number], 167.1, cm, 01/11/20 11:27:00 EDT, [...]
--- OUTSIDE RECORDS SUMMARY | 2023-01-22 10:37 | XMS_ITS | Continuity of Care Document ---
Author Name Unknown Organization [facility] Address [address] [place] [address]- Care Team Providers Care Group Managing Director Name Role Phone Josr MARTÍNEZ, Rika Yanes Primary Care Physician Encounter [facility] [place] Date(s): 01/11/21 - 02/10/[address] [address] Attending Physician: Admtr, [id number] Admitting Physician: Admtr, [...] 12/28/2011:08:00 EDT, Aerosol, Route to Pharmacy Electronically, [id number], [facility]/pharmacy #[id number], 167.1, cm, 12/28/19 11:35:00 EDT, He... Start Date: 12/28/19 Status: Ordered baclofen 10 mg oral tablet 10 mg, 1, tablet, By Mouth, 3 times a day, # 63 tablet, Refills 0, Tot. Refills 0, Maintenance, 01/08/21 9:14:00 EDT, Route to Pharmacy Electronically, [facility]/pharmacy #[id number], Partial fill upon patient request if the prescription is for a schedule II opio... Start Date: 01/08/21 Stop Date: 01/29/21 Status: Ordered Claritin 10 mg oral tablet 10 mg, 1, tablet, By Mouth, Daily, # 30 tablet, Refills 11, Tot. Refills 11, Maintenance, 06/22/19 10:44:05 EDT, Route to Pharmacy Electronically, [id number], [facility]/pharmacy #[id number] Start Date: 06/22/19 Stop Date: 06/16/20 Status: Ordered diclofenac 1% topical gel 1 application, Topically, 4 times a day, PRN Pain , Severe, right ankle and left wrist due for labs. orders in the system. please go to any [facility] lab., # 100 Gm, 0 Refills, Maintenance, 12/02/20 19:47:00 EST, Gel, [facility]/pharmacy #[id number], Partial fill... Start Date: 12/02/20 Status: Ordered diclofenac potassium 50 mg oral tablet 1 tablet = 50 mg, By Mouth, 3 times a day, PRN for pain, PRN Foot and knee pain. To replace naproxen. Hong Konger. Take with food., # 50 tablet, 1 Refills, Maintenance, 01/02/21 16:27:00 EDT, Tablet, [facility]/pharmacy #[id number], Partial fill upon patient request i... Start Date: 01/02/21 Status: Ordered Flovent HFA 110 mcg/inh inhalation aerosol 2 puffs, Inhalation, 2 times a day, # 12 Gm, 3 Refills, Maintenance, 12/28/19 12:07:00 EDT, Aerosol, [facility]/pharmacy #[id number], 167.1, cm, 12/28/19 [...] Refills, Maintenance, 02/06/21 8:15:00 EDT, [id number], 167.1, cm, 01/31/21 14:36:00 EDT, Height, 125.45, kg, 11/28/20 15:44:00 EST, Dry Weight Start Date: 02/06/21 Status: Ordered predniSONE 20 mg oral tablet See Instructions, in belizean : one tab a day for 10 days then decrease to 1/2 tab a day for 7 d., #14 tablet, 0 Refills, Maintenance, 01/26/20 16:02:00 EDT, Tablet, [facility]/pharmacy #[id number], 167.1, cm, 01/11/20 [...]
--- OUTSIDE RECORDS SUMMARY | 2023-01-22 10:37 | XMS_ITS | Continuity of Care Document ---
Author Name Unknown Organization [facility] Address [address] [place] [address] [address] [place] [address]- Care Team Providers Care Pediatric Registered Nurse Name Role Phone Damian Reyes MD Primary Care Physician Encounter [facility] [place] Date(s): 08/04/22 - 09/03/22 [facility] [address] [place] [address]- Allergies, Adverse Reactions, Alerts Substance Reaction Severity Status Tylenol with Codeine gets red and hot Act mulu SUMAtriptan 1 Persistent Moderate Active 1Vomiting, weakness, flushing Immunizations Given and Recorded Vaccine Date Status Refusal Reason SARS-CoV-2 mRNA ([id number]-txtv-xlfow) vax 02/18/22 Given SARS-CoV-2 (COVID-19) mRNA BNT-162b2 [...] tablet, 0 Refills, Maintenance, 06/16/22 16:57:00 EDT, [facility] #[id number], 167, cm, 06/05/22 11:34:00 EDT, Height, 129.27, kg, 04/29/22 10:51:00 EDT, Dry Weight Start Date: 06/16/22 Status: Ordered albuterol CFC free 90 mcg/inh inhalation aerosol 2, puffs, Inhalation, 4 times a day, PRN, # 25 Gm, Refills 2, Tot. Refills 2, Maintenance, 08/04/2214:56:00 EDT, Aerosol, Route to Pharmacy Electronically, [id number], [facility] #[id number], 167, cm, 08/04/22 14:42:00... Start Date: 08/04/22 [...] capsule, 2 Refills, Maintenance, 04/29/22 11:24:00 EDT, [facility] #[id number], Partial fill upon patient request if the prescription is for a schedule II opioid drug., 167, cm, 04/29/22 10:51:00 EDT, Sri... Start Date: 04/29/22 Status: Ordered Home Blood Pressure Monitor See Instructions, # 1 each, Maintenance, I10 SABRINA 99 Arm Circ 37 CM, BMI 286 lbs weight 36.6, 06/05/22 11:19:00 EDT, Supply Start Date: 06/05/22 Status: Ordered hydrochlorothiazide 25 mg oral tablet 25 mg, 1, tablet, By Mouth, Daily, Increase in dose, to replace HCTZ 12.5 mg. Take in AM for high BP. Citizen Of [place], # 30 tablet, Refills 11, Tot. Refills 11, Maintenance, 06/05/22 11:32:00 EDT, Route to Pharmacy Electronically, [facility] #[id number]... Start Date: 06/05/22 Status: Ordered Mobic 15 mg oral tablet 1 tablet = 15 mg, By Mouth, Daily, with food for knee pain, # 30 tablet, 0 Refills, Maintenance, 08/27/22 10:58:00 EST, Tablet, [facility] #[id number], Partial fill upon patient request if the prescription is for a schedule II opioid drug., 167,... Start Date: 08/27/22 Status: Ordered montelukast 10 mg oral tablet 10 mg, 1, tablet, By Mouth, Daily, # 30 tablet, Refills 5, Tot. Refills 5, Maintenance, 06/30/22 10:47:00 EDT, Route to Pharmacy Electronically, [facility] #[id number], Partial fill upon patientrequest if the prescription [...] 11:06:00 EDT, Aerosol, Route to Pharmacy Electronically, [id number], [facility] #[id number], 167, cm, 04/29/22 10:51:00 EDT... Start Date: [...] Team Personnel Name: Damian Reyes MD Position: [facility] Resident Member Role: PCP Address: Address: [address] [place] [address]- Name: Zoya Rodgers RN Position: [facility] Onco RN Member Role: Primary Care Nurse Name: Jayde Og RN Position: [facility] RN Member Role: Primary Care Nurse Care Team Related Persons Name: RUSLAN MCCRARY Address: home [address] [address] Name: BREANA MCCLENDON Address: home [address] [address] Name: DONTAE BAZZI Address: home [address] [place] [address] Name: CELESTINE BAZZI Address: home [address] [place] [address]
--- OUTSIDE RECORDS SUMMARY | 2023-01-22 10:37 | XMS_ITS | Continuity of Care Document ---
Author Name Unknown Organization [facility] Address [address] [place] [address]- Care Team Providers Care Drawer In Name Role Phone Josr MARTÍNEZ, Rika Yanes Primary Care Physician Encounter [facility] [place] Date(s): 11/18/19 - 11/28/19 [facility]/[address] [address]- [facility] Attending Physician: Admtr, [id number] Allergies, Adverse Reactions, Alerts Substance Reaction Severity [...] Gm, Refills 2, Tot. Refills 2, Maintenance, 06/22/1910:43:10 EDT, Aerosol, Route to Pharmacy Electronically, [id number], [facility]/pharmacy #1 Start Date: 06/22/19 Status: Ordered albuterol-ipratropium 3 mg-0.5 mg/3 ml inhalation solution 3 mL, Inhalation, 4 times a day, PRN Wheezing/Shortness of Breath, # 30 each, 1 Refills, Maintenance, 09/14/19 12:07:03 EST, Solution, 3 mL Inhalation 4 times a day,PRN:Wheezing/Shortness of Breath, 167.1, cm, 09/14/19 11:16:07 EST, Height, 119.9, kg,... Start Date: 09/14/19 Status: Ordered albuterol-ipratropium 3 mg-0.5 mg/3 ml inhalation solution 3 mL, Neb, 4 times a day, # 360 mL, 0 Refills, Maintenance, 09/14/19 13:32:00 EST, 3 mL Neb 4 timesa day, 167.1, cm, 09/14/19 11:16:07 EST, Height, 119.9, kg, 08/31/19 12:00:04 EST, Dry Weight Start Date: 09/14/19 Status: Ordered Claritin 10 mg oral tablet 10 mg, 1, tablet, By Mouth, Daily, # 30 tablet, Refills 11, Tot. Refills 11, Maintenance, 06/22/19 10:44:05 EDT, Route to Pharmacy Electronically, [id number], [facility]/pharmacy #[id number] Start Date: 06/22/19 Stop Date: 06/16/20 Status: Ordered Flovent HFA 110 mcg/inh inhalation aerosol 2 puffs, Inhalation, 2 times a day, # 12 Gm, 3 Refills, Maintenance, 09/14/19 12:07:44 EST, Aerosol, 167.1, cm, 09/14/19 11:16:07 EST, Height, 119.9, kg, 08/31/19 12:00:04 EST, Dry Weight Start Date: 09/14/19 Status: Ordered ibuprofen 800 mg oral tablet 800 mg, 1, tablet, By Mouth, 3 times a day, PRN, Take with food. not to exceed 3200 mg/day French., # 30 tablet, Refills 0, Tot. Refills 0, Maintenance, Pain, 08/05/19 14:38:40 EDT, Route to Pharmacy Electronically, [id number]... Start Date: 08/05/19 Status: Ordered Nebulizer/Compressor See Instructions, # 1 [...] Active Asthma(Confirmed) Active Bartholin's gland cyst(Confirmed) Active Cervical cancer(Confirmed) Active Morbid obesity(Confirmed) Active Acquired vaginal adhesions(Confirmed) Active Social History Social History Type Response Smoking Status Never smoker entered on: 07/22/17 Sex
--- OUTSIDE RECORDS SUMMARY | 2023-01-22 10:37 | XMS_ITS | Continuity of Care Document ---
Author Name Unknown Organization [facility] Address [address] [place] [address] [address] [place] [address]- Care Team Providers Care Restorative Art Embalmer Name Role Phone Damian Reyes MD Primary Care Physician [phone] Encounter [facility] [place] Date(s): 05/27/22 - 06/03/[address] [place] [address]- Attending Physician: Terrence Alegria Referring Physician: Stacie Mccray MD Allergies, Adverse Reactions, Alerts Substance Reaction Severity Status Tylenol with Codeine gets red and hot Act mulu SUMAtriptan Persistent Moderate Active Immunizations Given and Recorded Vaccine Date Status Refusal Reason SARS-CoV-2 mRNA ([id number]-dqmb-zbpps) vax 02/18/22 Given SARS-CoV-2 (COVID-19) mRNA BNT-162b2 [...] 12/28/2011:08:00 EDT, Aerosol, Route to Pharmacy Electronically, [id number], [facility]/pharmacy #[id number], 167.1, cm, 12/28/19 11:35:00 EDT, He... Start Date: 12/28/19 Status: Ordered Claritin 10 mg oral tablet 10 mg, 1, tablet, By Mouth, Daily, # 30 tablet, Refills 11, Tot. Refills 11, Maintenance, 06/22/19 10:44:05 EDT, Route to Pharmacy Electronically, [id number], [facility]/pharmacy #[id number] Start Date: 06/22/19 Stop Date: 06/16/20 [...] EST, Gel, [facility]/pharmacy #[id number], Partial fill... Start Date: 12/02/20 Status: Ordered diclofenac potassium 50 mg oral tablet 1 tablet = 50 mg, By Mouth, 3 times a day, PRN for pain, PRN Foot and knee pain. To replace naproxen. Thai. Take with food., # 50 tablet, 1 Refills, Maintenance, 01/02/21 16:27:00 EDT, Tablet, [facility]/pharmacy #207, Partial fill upon patient request i... Start Date: 01/02/21 Status: Ordered duloxetine 30 mg oral enteric coated capsule 1 capsule = 30 mg, By Mouth, Daily, # 30 capsule, 2 Refills, Maintenance, 04/29/22 11:24:00 EDT, [id number], Partial fill upon patient request if the prescription is for a schedule II opioid drug., 167, cm, 04/29/22 10:51:00 EDT, He[place]... Start Date: 04/29/22 Status: Ordered Excedrin Migraine oral tablet 2 tablet, By Mouth, Every 6 hours, PRN for headache, # 50 tablet, 0 Refills, Maintenance, 11/18/21 10:12:00 EST, Tablet, [facility]/pharmacy #[id number], Partial fill upon patient request if the prescription is for a schedule II opioid drug., 2 tablet By Mouth Niya... Start Date: 11/18/21 Status: Ordered Home Blood Pressure Monitor See Instructions, # 1 each, Maintenance, Check blood pressure; at least 2 hrs after taking bp pill hctz 12.5 mg daily, 06/02/22 13:44:00 EDT, Supply, 167, cm, 05/27/22 10:31:00 EDT, Height, 129.27, kg, 04/29/22 10:51:00 EDT, Dry Weight Start Date: 06/02/22 Status: Ordered hydroCHLOROthiazide 12.5 mg oral capsule [...] 04/20/22 15:33:00 EDT, Route to Pharmacy Electronically, [facility], Partial fill upon patient request if... Start Date: 04/20/22 Stop Date: 04/21/23 Status: Ordered Symbicort 160mcg/4.5mcg Inhaler 2, puffs, Inhalation, 2 times a day, # 10.2 Gm, Refills 3, Tot. Refills 3, Maintenance, 04/29/22 11:06:00 EDT, Aerosol, Route to Pharmacy Electronically, [id number], [facility] #[id number], 167, cm, 04/29/22 10:51:00 EDT... Start Date: 04/29/22 Status: Ordered Tylenol 325 mg oral tablet 650 mg, 2, tablet, By Mouth, Every 4 hours, # 50 tablet, Refills 0, Tot. Refills 0, Acute 04/21/23 15:34:00 EDT, 04/20/22 15:33:00 EDT, Route to Pharmacy Electronically, [facility], Partial fill upon patient [...] recent to oldest [Reference Range]: 1 Height 167 cm (05/27/22 10:31 AM) Weight 126.4 kg (05/27/22 10:31 AM) Pulse Rate [55-90 bpm] 71 bpm (05/27/22 10:31 AM) Body Mass Index [18.5-24.99] 45.32 *>HHI* (05/27/22 10:31 AM) Blood Pressure [90-138/55-84 mm Hg] 134/ 91mm Hg (05/27/22 10:31 AM) Temperature [96.8-100.4 DegF] 96.7 DegF *L* (05/27/22 10:31 AM) Social History Social History Type Response Smoking Status Never (less than 100 in lifetime); Exposure to Secondhand Smoke: No entered on: 01/31/21 Sex
--- OUTSIDE RECORDS SUMMARY | 2023-01-22 10:37 | XMS_ITS | Continuity of Care Document ---
Author Name Unknown Organization [facility] Address [address] [place] [address]- Care Team Providers Care Chief Writer Name Role Phone Jonathan CROSS, Te[place] Primary Care Physician [phone] [id number] 12[facility]12/21 [facility] [address] [place] [address]- Attending Physician: Ailyn MARTÍNEZ, Tara Quiles Admitting Physician: Ailyn MARTÍNEZ, Tara Quiles Referring Physician: Lisa Isaac NP Allergies, Adverse Reactions, Alerts Substance Reaction [...] 12/28/2011:08:00 EDT, Aerosol, Route to Pharmacy Electronically, [id number], [facility]/pharmacy #[id number], 167.1, cm, 12/28/19 11:35:00 EDT, He... Start Date: 12/28/19 Status: Ordered Claritin 10 mg oral tablet 10 mg, 1, tablet, By Mouth, Daily, # 30 tablet, Refills 11, Tot. Refills 11, Maintenance, 06/22/19 10:44:05 EDT, Route to Pharmacy Electronically, [id number], [facility]/pharmacy #207 Start Date: 06/22/19 Stop Date: [...] in the system. please go to any [facility] lab., # 100 Gm, 0 Refills, Maintenance, 12/02/20 19:47:00 EST, Gel, [facility]/pharmacy #[id number], Partial fill... Start Date: 12/02/20 Status: Ordered diclofenac potassium 50 mg oral tablet 1 tablet = 50 mg, By Mouth, 3 times a day, PRN for pain, PRN Foot and knee pain. To replace naproxen. Mauritanian. Take with food., # 50 tablet, 1 Refills, Maintenance, 01/02/21 16:27:00 EDT, Tablet, [facility]/pharmacy #[id number], Partial fill upon patient request i... Start Date: 01/02/21 Status: Ordered Excedrin Migraine oral tablet 2 tablet, By Mouth, Every 6 hours, PRN for headache, # 50 tablet, 0 Refills, Maintenance, 11/18/21 10:12:00 EST, Tablet, [facility]/pharmacy #[id number], Partial fill upon [...] 12.5 mg, By Mouth, Daily, label in dominican, # 90 capsule, 1 Refills, Maintenance, 07/22/21 11:52:00 EDT, Capsule, [facility]/pharmacy #[id number], Partial fill upon [...] 20 mg oral tablet See Instructions, in dominican : one tab a day for 10 days then decrease to 1/2 tab a day for 7 d., #14 tablet, 0 Refills, Maintenance, 01/26/20 16:02:00 EDT, Tablet, [facility]/pharmacy #[id number], 167.1, cm, 01/11/20 [...] 07/04/21 15:33:00 EDT, Route to Pharmacy Electronically, [facility]/pharmacy #[id number], Partial... Start Date: [...]
--- OUTSIDE RECORDS SUMMARY | 2023-01-22 10:37 | XMS_ITS | Continuity of Care Document ---
Author Name Unknown Organization [facility] ter Address [address] [place] [address]- Care Team Providers Care Greige Mender Name Role Phone Rika Ovalles NP Primary Care Physician [phone] Encounter [facility] Date(s): 01/04/20 - 02/04/[address] [address]- [facility] Attending Physician: Rika Ovalles NP Admitting Physician: [...] 12/28/2011:08:00 EDT, Aerosol, Route to Pharmacy Electronically, [id number], [facility]/pharmacy #[id number], 167.1, cm, 12/28/19 11:35:00 EDT, He... Start Date: 12/28/19 Status: Ordered Claritin 10 mg oral tablet 10 mg, 1, tablet, By Mouth, Daily, # 30 tablet, Refills 11, Tot. Refills 11, Maintenance, 06/22/19 10:44:05 EDT, Route to Pharmacy Electronically, [id number], [facility]/pharmacy #[id number] Start Date: 06/22/19 Stop Date: 06/16/20 Status: Ordered Flovent HFA 110 mcg/inh inhalation aerosol 2 puffs, Inhalation, 2 times a day, # 12 Gm, 3 Refills, Maintenance, 12/28/19 12:07:00 EDT, Aerosol, [facility]/pharmacy #[id number], 167.1, cm, 12/28/19 [...] 20 mg oral tablet See Instructions, in danish : one tab a day for 10 [...]
--- OUTSIDE RECORDS SUMMARY | 2023-01-22 10:37 | XMS_ITS | Continuity of Care Document ---
Author Name Unknown Organization [facility] Address [address] [place] [address]- Care Team Providers Care Organizational Psychologist Name Role Phone Damian Reyes MD Primary Care Physician Encounter [facility] Date(s): 08/28/22 - 09/27/22 [facility] [address] [place] [address]- Attending Physician: Admmary kay, Poonam Admitting Physician: AdmtrPoonam Referring Physician: Admtr, Ar8 Allergies, Adverse Reactions, Alerts Substance Reaction Severity Status SUMAtriptan 1 Persistent Moderate Active Tylenol with Codeine gets red and hot Act mulu 1Vomiting, weakness, flushing Immunizations Given and Recorded Vaccine Date Status Refusal Reason SARS-CoV-2 mRNA (kxuralr-oldu-qsvve) vax 02/18/22 Given SARS-CoV-2 (COVID-19) mRNA BNT-162b2 [...] 08/04/2214:56:00 EDT, Aerosol, Route to Pharmacy Electronically, [id number], [facility] #[id number], 167, cm, 08/04/22 14:42:00... Start Date: 08/04/22 [...] in AM for high BP. Citizen Of [place], # 30 tablet, Refills 11, Tot. Refills 11, Maintenance, 06/05/22 11:32:00 EDT, Route to Pharmacy Electronically, [facility] #[id number]... Start Date: 06/05/22 Status: Ordered montelukast 10 mg oral tablet 10 mg, 1, tablet, By Mouth, Daily, # 30 tablet, Refills 5, Tot. Refills 5, Maintenance, 06/30/22 10:47:00 EDT, Route to Pharmacy Electronically, [facility] #[id number], Partial fill upon patientrequest if the prescription [...] 11:11:00 EST, Aerosol, Route to Pharmacy Electronically, [id number], [facility] #[id number], 167, cm, 09/11/22 11:44:00 EST... Start Date: 09/23/22 Status: Ordered Tylenol 8 HR Arthritis Pain 650 mg oral tablet, extended release 1 tablet = 650 mg, By Mouth, Every 8 hours, PRN as needed for pain, for 30 days, # 90 tablet, 0 Refills, Acute 10/11/22 12:20:00 EST, 09/11/22 12:20:00 EST, ER Tablet, [facility] #[id number], Partial fill upon patient request if the [...] [facility] Resident Member Role: PCP Address: Address: [address] [place] [id number] Name: Zoya Rodgers RN Position: [facility] Onco RN Member Role: Primary Care Nurse Name: Jayde Llanos RN Position: [facility] RN Member Role: Primary Care Nurse Care Team Related Persons Name: RUSLAN MCCRARY Address: home [address], [place] [address] Name: BREANA MCCLENDON Address: home [address] [place] [address] Name: DONTAE BAZZI Address: home [address] [place] [address] Name: CELESTINE BAZZI Address: home [address] [place] [address]
--- OUTSIDE RECORDS SUMMARY | 2023-01-22 10:37 | XMS_ITS | Continuity of Care Document ---
Author Name Unknown Organization [facility] Address Unknown Care Team Providers Care Respiratory Care Instructor Name Role Phone Tejas Castillo MD Primary Care Physician [phone] Encounter [facility] Date(s): 11/27/21 - 12/04/21 [facility] Attending Physician: Terrence Alegria Referring Physician: Tejas [...] 12/28/2011:08:00 EDT, Aerosol, Route to Pharmacy Electronically, [id number], [facility]/pharmacy #[id number], 167.1, cm, 12/28/19 11:35:00 EDT, He... Start Date: 12/28/19 Status: Ordered Claritin 10 mg oral tablet 10 mg, 1, tablet, By Mouth, Daily, # 30 tablet, Refills 11, Tot. Refills 11, Maintenance, 06/22/19 10:44:05 EDT, Route to Pharmacy Electronically, [id number], [facility]/pharmacy #[id number] Start Date: 06/22/19 Stop [...] in the system. please go to any [facility] lab., # 100 Gm, 0 Refills, Maintenance, 12/02/20 19:47:00 EST, Gel, [facility]/pharmacy #[id number], Partial fill... Start Date: 12/02/20 Status: Ordered diclofenac potassium 50 mg oral tablet 1 tablet = 50 mg, By Mouth, 3 times a day, PRN for pain, PRN Foot and knee pain. To replace naproxen. Macanese. Take with food., # 50 tablet, 1 Refills, Maintenance, 01/02/21 16:27:00 EDT, Tablet, [facility]/pharmacy #[id number], Partial fill upon patient request i... Start Date: 01/02/21 Status: Ordered Excedrin Migraine oral tablet 2 tablet, By Mouth, Every 6 hours, PRN for headache, # 50 tablet, 0 Refills, Maintenance, 11/18/21 10:12:00 EST, Tablet, [facility]/pharmacy #[id number], Partial fill upon patient request if the prescription is for a schedule II opioid drug., 2 tablet By Mouth Niya... Start Date: 11/18/21 Status: Ordered Flovent HFA 110 mcg/inh inhalation aerosol 2 puffs, Inhalation, 2 times a day, # 12 Gm, 3 Refills, Maintenance, 12/28/19 12:07:00 EDT, Aerosol, [facility]/pharmacy #[id number], 167.1, cm, 12/28/19 11:35:00 [...] 12.5 mg, By Mouth, Daily, label in mexican, # 90 capsule, 1 Refills, Maintenance, 07/22/21 11:52:00 EDT, Capsule, [facility]/pharmacy #[id number], Partial fill upon patient [...] 20 mg oral tablet See Instructions, in mexican : one tab a day for 10 days then decrease to 1/2 tab a day for 7 d., #14 tablet, 0 Refills, Maintenance, 01/26/20 16:02:00 EDT, Tablet, [facility]/pharmacy #[id number], 167.1, cm, 01/11/20 11:27:00 [...] 07/04/21 15:33:00 EDT, Route to Pharmacy Electronically, [facility]/pharmacy #[id number], Partial... Start Date: 07/04/21 Stop [...]
--- OUTSIDE RECORDS SUMMARY | 2023-01-22 10:37 | XMS_ITS | Continuity of Care Document ---
Author Name Unknown Organization [facility] Address Unknown Care Team Providers Care Software Tools Engineer Name Role Phone Jonathan CROSS, Tejas Primary Care Physician Encounter [facility] Date(s): 03/18/22 - 04/17/22 [facility] Allergies, Adverse Reactions, Alerts Substance Reaction Severity Status SUMAtriptan Persistent Moderate Active Tylenol with Codeine gets red and hot Act mulu Immunizations Given and Recorded Vaccine Date Status Refusal Reason SARS-CoV-2 mRNA (ebumweq-btxr-taqcb) vax 02/18/22 Given SARS-CoV-2 (COVID-19) mRNA BNT-162b2 [...] 12/28/2011:08:00 EDT, Aerosol, Route to Pharmacy Electronically, [id number], [facility]/pharmacy #[id number], 167.1, cm, 12/28/19 11:35:00 EDT, He... Start Date: 12/28/19 Status: Ordered Claritin 10 mg oral tablet 10 mg, 1, tablet, By Mouth, Daily, # 30 tablet, Refills 11, Tot. Refills 11, Maintenance, 06/22/19 10:44:05 EDT, Route to Pharmacy Electronically, [id number], [facility]/pharmacy #[id number] Start Date: 06/22/19 Stop Date: [...] in the system. please go to any [facility] lab., # 100 Gm, 0 Refills, Maintenance, 12/02/20 19:47:00 EST, Gel, [facility]/pharmacy #[id number], Partial fill... Start Date: 12/02/20 Status: Ordered diclofenac potassium 50 mg oral tablet 1 tablet = 50 mg, By Mouth, 3 times a day, PRN for pain, PRN Foot and knee pain. To replace naproxen. Georgian. Take with food., # 50 tablet, 1 Refills, Maintenance, 01/02/21 16:27:00 EDT, Tablet, [facility]/pharmacy #[id number], Partial fill upon patient request i... Start Date: 01/02/21 Status: Ordered Excedrin Migraine oral tablet 2 tablet, By Mouth, Every 6 hours, PRN for headache, # 50 tablet, 0 Refills, Maintenance, 11/18/21 10:12:00 EST, Tablet, [facility]/pharmacy #[id number], Partial fill upon patient request [...] 12.5 mg, By Mouth, Daily, label in serbian, # 90 capsule, 1 Refills, Maintenance, 07/22/21 11:52:00 EDT, Capsule, [facility]/pharmacy #[id number], Partial fill upon patient request if the [...] 8:50:00 EDT, Aerosol, Route to Pharmacy Electronically, [id number], [facility] #[id number], 167.1, cm, 02/18/22 8:13:00 EDT,... Start Date: [...]
--- OUTSIDE RECORDS SUMMARY | 2023-01-22 10:37 | XMS_ITS | Continuity of Care Document ---
Author Name Unknown Organization [facility] Address Unknown Care Team Providers Care Compliance Mgr Name Role Phone Lisa Isaac NP Primary Care Physician Encounter [facility] Date(s): 07/02/21 - 08/01/21 [facility] Allergies, Adverse Reactions, Alerts Substance [...] 12/28/2011:08:00 EDT, Aerosol, Route to Pharmacy Electronically, [id number], [facility]/pharmacy #[id number], 167.1, cm, 12/28/19 11:35:00 EDT, He... Start Date: 12/28/19 Status: Ordered Claritin 10 mg oral tablet 10 mg, 1, tablet, By Mouth, Daily, # 30 tablet, Refills 11, Tot. Refills 11, Maintenance, 06/22/19 10:44:05 EDT, Route to Pharmacy Electronically, [id number], [facility]/pharmacy #[id number] Start Date: 06/22/19 Stop Date: [...] in the system. please go to any [facility] lab., # 100 Gm, 0 Refills, Maintenance, 12/02/20 19:47:00 EST, Gel, [facility]/pharmacy #[id number], Partial fill... Start Date: 12/02/20 Status: Ordered diclofenac potassium 50 mg oral tablet 1 tablet = 50 mg, By Mouth, 3 times a day, PRN for pain, PRN Foot and knee pain. To replace naproxen. Swiss. Take with food., # 50 tablet, 1 Refills, Maintenance, 01/02/21 16:27:00 EDT, Tablet, [facility]/pharmacy #[id number], Partial fill upon patient request i... Start Date: 01/02/21 Status: Ordered Flovent HFA 110 mcg/inh inhalation aerosol 2 puffs, Inhalation, 2 times a day, # 12 Gm, 3 Refills, Maintenance, 12/28/19 12:07:00 EDT, Aerosol, [facility]/pharmacy #207, 167.1, cm, 12/28/19 11:35:00 EDT, [...] 12.5 mg, By Mouth, Daily, label in romanian, # 90 capsule, 1 Refills, Maintenance, 07/22/21 11:52:00 EDT, Capsule, [facility]/pharmacy #[id number], Partial fill upon patient request [...] 09/17/21 18:30:00 EST, 07/17/21 18:29:00 EDT, Cream, [facility]/pharmacy #[id number], Partial fill upon patient request if the prescription is for a schedule II opioid drug., 1 application Topicall... Start Date: 07/17/21 Stop Date: 09/17/21 Status: Ordered lidocaine 5% topical cream 1 application, Topically, 3 times a day, label in romanian, # 45 Gm, 0 Refills, Acute 09/22/21 12:02:00 EST, 09/17/21 18:30:00 EST, Cream, [facility]/pharmacy #[id number], Partial fill upon patient request [...] 0 Refills, Maintenance, 01/26/20 16:02:00 EDT, Tablet, [facility]/pharmacy #[id number], 167.1, cm, 01/11/20 11:27:00 EDT, [...] 07/04/21 15:33:00 EDT, Route to Pharmacy Electronically, [facility]/pharmacy #[id number], Partial... Start Date: 07/04/21 Stop Date: 07/11/21 Status: Ordered Tylenol Extra Strength 500 mg oral tablet 2 tablet = 1,000 mg, By Mouth, 3 times a day, PRN for fever, not to exceed 3000 mg/day label in romanian, # 120 tablet, 1 Refills, Acute 09/30/21 [...]
--- OUTSIDE RECORDS SUMMARY | 2023-01-22 10:37 | XMS_ITS | Continuity of Care Document ---
Author Name Unknown Organization [facility] ter Address [address] [place] [address]- Care Team Providers Care Supervisor Poultry Farm Name Role Phone Damian Reyes MD Primary Care Physician [phone] Encounter [facility] Date(s): 07/02/22 - 08/29/[address] [address]- Attending Physician: Zach Yun MD Admitting Physician: Zach Yun MD Allergies, Adverse Reactions, Alerts Substance Reaction Severity Status Tylenol with Codeine gets red and hot Act mulu SUMAtriptan 1 Persistent Moderate Active 1Vomiting, weakness, flushing Immunizations Given and Recorded Vaccine Date Status Refusal Reason SARS-CoV-2 mRNA (pqjorgt-oodz-lapln) vax 02/18/22 Given SARS-CoV-2 (COVID-19) mRNA BNT-162b2 [...] tablet, 0 Refills, Maintenance, 06/16/22 16:57:00 EDT, [facility] #[id number], 167, cm, 06/05/22 11:34:00 EDT, Height, 129.27, kg, 04/29/22 10:51:00 EDT, Dry Weight Start Date: 06/16/22 Status: Ordered albuterol CFC free 90 mcg/inh inhalation aerosol 2, puffs, Inhalation, 4 times a day, PRN, # 25 Gm, Refills 2, Tot. Refills 2, Maintenance, 08/04/2214:56:00 EDT, Aerosol, Route to Pharmacy Electronically, [id number], [facility] #[id number], 167, cm, 08/04/22 14:42:00... Start Date: 08/04/22 [...] capsule, 2 Refills, Maintenance, 04/29/22 11:24:00 EDT, [facility] #[id number], Partial fill upon patient request if the [...] mg. Take in AM for high BP. Congolese, # 30 tablet, Refills 11, Tot. Refills 11, Maintenance, 06/05/22 11:32:00 EDT, Route to Pharmacy Electronically, [facility] #[id number]... Start Date: 06/05/22 Status: Ordered Mobic 15 mg oral tablet 1 tablet = 15 mg, By Mouth, Daily, with food for knee pain, # 30 tablet, 0 Refills, Maintenance, 11/16/22 10:58:00 EST, Tablet, [facility] #[id number], Partial fill upon patient request if the prescription is for a schedule II opioid drug., 167,... Start Date: 08/27/22 Status: Ordered montelukast 10 mg oral tablet 10 mg, 1, tablet, By Mouth, Daily, # 30 tablet, Refills 5, Tot. Refills 5, Maintenance, 06/30/22 10:47:00 EDT, Route to Pharmacy Electronically, [facility] #[id number], Partial fill upon patientrequest if the prescription [...] 11:06:00 EDT, Aerosol, Route to Pharmacy Electronically, [id number], [facility] #[id number], 167, cm, 04/29/22 10:51:00 EDT... Start Date: [...] Secondhand Smoke: No entered on: 08/04/22 Sex History and physical note * Event Display: History and Physical Hospital Authored Date: Patient Care team information Care Team Personnel Name: Damian Reyes MD Position: [facility] Resident Member Role: PCP Address: Address: [address] [place] [address] Name: Zoya Rodgers RN Position: [facility] Onco RN Member Role: Primary Care Nurse Name: Jayde Og RN Position: [facility] RN Member Role: Primary Care Nurse Care Team Related Persons Name: RUSLAN MCCRARY Address: home [address] [address] Name: BREANA MCCLENDON Address: home [address] [address] Name: DONTAE BAZZI Address: home [address] [place] [address] Name: CELESTINE BAZZI Address: home [address] [place] [address]
--- OUTSIDE RECORDS SUMMARY | 2023-01-22 10:37 | XMS_ITS | Continuity of Care Document ---
Author Name Unknown Organization [facility] Address Unknown Care Team Providers Care Police Surgeon Name Role Phone Tejas Castillo MD Primary Care Physician En[id number] Date(s): 07/24/21 - 08/23/21 [facility] Attending Physician: Admtr, Ar8 Allergies, Adverse Reactions, [...] 12/28/2011:08:00 EDT, Aerosol, Route to Pharmacy Electronically, [id number], [facility]/pharmacy #[id number], 167.1, cm, 12/28/19 11:35:00 EDT, He... Start Date: 12/28/19 Status: Ordered Claritin 10 mg oral tablet 10 mg, 1, tablet, By Mouth, Daily, # 30 tablet, Refills 11, Tot. Refills 11, Maintenance, 06/22/19 10:44:05 EDT, Route to Pharmacy Electronically, [id number], [facility]/pharmacy #2071 Start Date: 06/22/19 Stop Date: 06/16/20 [...] in the system. please go to any [facility] lab., # 100 Gm, 0 Refills, Maintenance, 12/02/20 19:47:00 EST, Gel, [facility]/pharmacy #2071, Partial fill... Start Date: 12/02/20 Status: Ordered diclofenac potassium 50 mg oral tablet 1 tablet = 50 mg, By Mouth, 3 times a day, PRN for pain, PRN Foot and knee pain. To replace naproxen. Armenian. Take with food., # 50 tablet, 1 Refills, Maintenance, 01/02/21 16:27:00 EDT, Tablet, [facility]/pharmacy #[id number], Partial fill upon patient request i... Start Date: 01/02/21 Status: Ordered Flovent HFA 110 mcg/inh inhalation aerosol 2 puffs, Inhalation, 2 times a day, # 12 Gm, 3 Refills, Maintenance, 12/28/19 12:07:00 EDT, Aerosol, [facility]/pharmacy #[id number], 167.1, cm, 12/28/19 11:35:00 EDT, Height, [...] 12.5 mg, By Mouth, Daily, label in ghanaian, # 90 capsule, 1 Refills, Maintenance, 07/22/21 11:52:00 EDT, Capsule, [facility]/pharmacy #[id number], Partial fill upon patient request if [...] pain, 05/30/21 15:41:00 EDT,Route to Pharmacy Electronically, [facility]/pharmacy #... Start Date: 05/30/21 Stop Date: 09/30/21 [...] Topically, 3 times a day, label in ghanaian, # 45 Gm, 0 Refills, Acute 09/22/21 12:02:00 EST, 09/17/21 18:30:00 EST, Cream, [facility]/pharmacy #[id number], Partial fill upon patient request if [...] 20 mg oral tablet See Instructions, in ghanaian : one tab a day for 10 days then decrease to 1/2 tab a day for 7 d., #14 tablet, 0 Refills, Maintenance, 01/26/20 16:02:00 EDT, Tablet, [facility]/pharmacy #[id number], 167.1, cm, 01/11/20 11:27:00 EDT, Height, 119.9, kg, 08/31/19 12:... Start Date: 01/26/20 Status: Ordered tiZANidine 2 mg oral tablet 2 mg, 1, tablet, By Mouth, 2 times a day, take only at night at first can take up to 2 times a day if tolerating, # 14 tablet, Refills 0, Tot. Refills 0, Maintenance, 07/04/21 15:33:00 EDT, Route to Pharmacy Electronically, [facility]/pharmacy #[id number], Partial... Start Date: 07/04/21 Stop Date: 07/11/21 Status: Ordered Tylenol Extra Strength 500 mg oral tablet 2 tablet = 1,000 mg, By Mouth, 3 times a day, PRN for fever, not to exceed 3000 mg/day label in ghanaian, # 120 tablet, 1 Refills, Acute 09/30/21 15:43:00 EST, 05/30/21 15:43:00 EDT, Tablet, [facility]/pharmacy #[id number], Partial fill upon patient request if [...]
--- OUTSIDE RECORDS SUMMARY | 2023-01-22 10:37 | XMS_ITS | Continuity of Care Document ---
Author Name Unknown Organization [facility] Address Adult Weight Managem ent [address] [place] [address]- Care Team Providers Care Pedicurist Name Role Phone Rika Ovalles NP Primary Care Physician Encounter [facility] Date(s): 02/01/20 - 05/31/20 [facility] Adult Weight Management [address] [place] [address]- [facility] Attending Physician: Not on Staff, Attending MD Referring Physician: Rika Ovalles NP Allergies, [...] 12/28/2011:08:00 EDT, Aerosol, Route to Pharmacy Electronically, [id number], [facility]/pharmacy #2071, 167.1, cm, 12/28/19 11:35:00 EDT, He... Start Date: 12/28/19 Status: Ordered Claritin 10 mg oral tablet 10 mg, 1, tablet, By Mouth, Daily, # 30 tablet, Refills 11, Tot. Refills 11, Maintenance, 06/22/19 10:44:05 EDT, Route to Pharmacy Electronically, [id number], [facility]/pharmacy #[id number] Start Date: 06/22/19 Stop Date: 06/16/20 Status: Ordered Flovent HFA 110 mcg/inh inhalation aerosol 2 puffs, Inhalation, 2 times a day, # 12 Gm, 3 Refills, Maintenance, 12/28/19 12:07:00 EDT, Aerosol, [facility]/pharmacy #[id number], 167.1, cm, 12/28/19 11:35:00 EDT, [...] 20 mg oral tablet See Instructions, in kyrgyz : one tab a day for 10 days then decrease to 1/2 tab a day for 7 d., #14 tablet, 0 Refills, Maintenance, 01/26/20 16:02:00 EDT, Tablet, [facility]/pharmacy #[id number], 167.1, cm, 01/11/20 11:27:00 EDT, [...]
--- OUTSIDE RECORDS SUMMARY | 2023-01-22 10:37 | XMS_ITS | Continuity of Care Document ---
Author Name Unknown Organization [facility] Address [address] [place] [address]- Care Team Providers Care Quantitative Analyst Marketing Name Role Phone Josr MARTÍNEZ, Rika Yanes Primary Care Physician Encounter [facility] Date(s): 10/02/20 - 11/01/20 [facility]/[address] [address]- Allergies, Adverse Reactions, Alerts Substance Reaction Severity [...] 12/28/2011:08:00 EDT, Aerosol, Route to Pharmacy Electronically, [id number], [facility]/pharmacy #[id number], 167.1, cm, 12/28/19 11:35:00 EDT, He... Start Date: 12/28/19 Status: Ordered Claritin 10 mg oral tablet 10 mg, 1, tablet, By Mouth, Daily, # 30 tablet, Refills 11, Tot. Refills 11, Maintenance, 06/22/19 10:44:05 EDT, Route to Pharmacy Electronically, [id number], [id number] Start Date: 06/22/19 Stop Date: 06/16/20 Status: Ordered diclofenac 1% topical gel 1 application, Topically, 4 times a day, PRN Pain , Severe, right ankle and left wrist due for labs. orders in the system. please go to any [facility] lab., # 100 Gm, 0 Refills, Maintenance, 10/02/20 11:22:00 EST, Gel, [facility]/pharmacy #[id number], Partial fill... Start Date: 10/02/20 Status: Ordered Flovent HFA 110 mcg/inh inhalation aerosol 2 puffs, Inhalation, 2 times a day, # 12 Gm, 3 Refills, Maintenance, 12/28/19 12:07:00 EDT, Aerosol, [facility]/pharmacy #[id number], 167.1, cm, 12/28/19 [...] 20 mg oral tablet See Instructions, in vietnamese : one tab a day for 10 [...]
--- OUTSIDE RECORDS SUMMARY | 2023-01-22 10:37 | XMS_ITS | Continuity of Care Document ---
Author Name Unknown Organization [facility] Address [address] [place] [address] [address] [place] [address]- Care Team Providers Care Gaming Surveillance Observer Name Role Phone Damian Reyes MD Primary Care Physician Encounter [facility] [place] Date(s): 04/29/22 - 06/13/[address] [place] [address]- Attending Physician: Uriel Saldana MD Allergies, Adverse Reactions, Alerts Substance Reaction Severity Status Tylenol with Codeine gets red and hot Act mulu SUMAtriptan 1 Persistent Moderate Active 1Vomiting, weakness, flushing Immunizations Given and Recorded Vaccine Date Status Refusal Reason SARS-CoV-2 mRNA (mlewfjb-snhu-qucmd) vax 02/18/22 Given SARS-CoV-2 (COVID-19) mRNA BNT-162b2 vac 07/24/21 Given SARS-CoV-2 (COVID-19) mRNA BNT-162b2 vac 07/03/21 Given pneumococcal 13-valent vaccine 1 08/04/17 Given tetanus/diphtheria/pertussis, acel(Tdap) 03/20/16 Given pneumococcal 23-valent vaccine 09/29/13 Given 1Early/Late Reason: Wan to Standard Admin Times Medications acetaminophen 500 mg oral tablet 2 tablet = 1,000 mg, By Mouth, Every 6 hours, PRN SUMMERS not to exceed 3000 mg/day, # 50 tablet, 0 Refills, Maintenance, 06/05/22 11:29:00 EDT, [facility] #[id number], Partial fill upon patient request if the prescription is for a schedule II opioid... Start Date: 06/05/22 Status: Ordered albuterol CFC free 90 mcg/inh inhalation aerosol 2, puffs, Inhalation, 4 times a day, PRN, # 25 Gm, Refills 2, Tot. Refills 2, Maintenance, 12/28/2011:08:00 EDT, Aerosol, Route to Pharmacy Electronically, [id number], [facility]/pharmacy #[id number], 167.1, cm, 12/28/19 11:35:00 EDT, [...] capsule, 2 Refills, Maintenance, 04/29/22 11:24:00 EDT, [facility] #[id number], Partial fill upon patient request if the [...] mg. Take in AM for high BP. German, # 30 tablet, Refills 11, Tot. Refills 11, Maintenance, 06/05/22 11:32:00 EDT, Route to Pharmacy Electronically, [facility] #[id number]... Start Date: 06/05/22 Status: Ordered Nebulizer/Compressor See Instructions, # 1 each, Maintenance, as directed. with all supplies including tubing and mouthpiece, 09/14/19 11:53:40 EST, Compound Start Date: 09/14/19 Status: Ordered Symbicort 160mcg/4.5mcg Inhaler 2, puffs, Inhalation, 2 times a day, # 10.2 Gm, Refills 3, Tot. Refills 3, Maintenance, 04/29/22 11:06:00 EDT, Aerosol, Route to Pharmacy Electronically, [id number], [facility] #[id number], 167, cm, 04/29/22 10:51:00 EDT... Start Date: [...] Team Personnel Name: Damian Reyes MD Address: [address] [place] [address]
--- OUTSIDE RECORDS SUMMARY | 2023-01-22 10:37 | XMS_ITS | Continuity of Care Document ---
Author Name Unknown Organization [facility] Address [address] [place] [address]- Care Team Providers Care Clay Hoister Name Role Phone Josr MARTÍNEZ, Rika Yanes Primary Care Physician Encounter [facility] Date(s): 09/07/19 - 10/07/19 [facility]/[address] [address]- [facility] Attending Physician: Filiberto Porter MD, I Admitting Physician: Filiberto Porter MD, I Allergies, Adverse Reactions, Alerts Substance Reaction Severity [...] 06/22/1910:43:10 EDT, Aerosol, Route to Pharmacy Electronically, [id number], [facility]/pharmacy #[id number] Start Date: 06/22/19 Status: Ordered albuterol-ipratropium 3 [...] Dry Weight Start Date: 09/14/19 Status: Ordered Bactrim DS 800 mg-160 mg oral tablet 1 tablet, By Mouth, Every 12 hours, for 5 days, # 10 tablet, 0 Refills, Acute 10/09/19 9:39:00 EST,10/04/19 9:39:00 EST, Tablet, [facility]/pharmacy #[id number], 1 tablet By Mouth Every 12 hours,x5 days, 167.1, cm, 09/14/19 11:16:00 EST, Height, 119.9, kg, 08/31/... Start Date: 10/04/19 Stop Date: 10/09/19 Status: Ordered Claritin 10 mg oral tablet 10 mg, 1, tablet, By Mouth, Daily, # 30 tablet, Refills 11, Tot. Refills 11, Maintenance, 06/22/19 10:44:05 EDT, Route to Pharmacy Electronically, [id number], [facility]/pharmacy #[id number] Start Date: 06/22/19 Stop Date: 06/16/20 [...] with food. not to exceed 3200 mg/day Maltese., # 30 tablet, Refills 0, Tot. Refills 0, Maintenance, Pain, 08/05/19 14:38:40 EDT, Route to Pharmacy Electronically, [id number]... Start Date: 08/05/19 Status: Ordered Nebulizer/Compressor See [...]
--- OUTSIDE RECORDS SUMMARY | 2023-01-22 10:37 | XMS_ITS | Continuity of Care Document ---
Author Name Unknown Organization [facility] Address [address] [place] [address] [address] [place] [address]- Care Team Providers Care Access Developer Name Role Phone Josr MARTÍNEZ, Rika Yanes Primary Care Physician [phone] Encounter [facility] [place] Date(s): 01/04/20 - 01/11/[address] [place] [address]- [facility] Encounter Diagnosis Lipoma of back(Discharge Diagnosis) - 01/04/20 Attending Physician: Uriel Saldana MD Referring Physician: Rika Ovalles NP Allergies, [...] 12/28/2011:08:00 EDT, Aerosol, Route to Pharmacy Electronically, [id number], [facility]/pharmacy #[id number], 167.1, cm, 12/28/19 11:35:00 EDT, He... Start Date: 12/28/19 Status: Ordered Claritin 10 mg oral tablet 10 mg, 1, tablet, By Mouth, Daily, # 30 tablet, Refills 11, Tot. Refills 11, Maintenance, 06/22/19 10:44:05 EDT, Route to Pharmacy Electronically, [id number], [facility]/pharmacy #[id number] Start Date: [...] Morbid obesity(Confirmed) Active Acquired vaginal adhesions(Confirmed) Active Diagnosis Diagnosis Type Effective Dates Health Status Cl inical Service Informant Lipoma of back Discharge Diagnosis 01/04/20 Vital Signs Most recent to oldest [Reference Range]: 1 Height 167.1 cm (01/04/20 8:36 AM) Weight 121 kg (01/04/20 8:36 AM) Pulse Rate [55-90 bpm] 84 bpm (01/04/20 8:36 AM) Body Mass Index [18.5-24.99] 43.33 *>HHI* (01/04/20 8:36 AM) Blood Pressure [90-138/55-84 mm Hg] 128/ 82mm Hg (01/04/20 8:36 AM) Respiratory Rate [16-30 br/min] 16 br/mi n (01/04/20 8:36 AM) Temperature [96.8-100.4 DegF] 97.9 DegF (01/04/20 8:36 AM) Blood pressure sites Arm, right (01/04/20 8:36 AM) Temperature Route Temporal (01/04/20 8:36 AM) Weight Obtained Via Standing scale (01/04/20 8:36 AM) Social History Social History Type Response Smoking Status Never smoker entered on: 07/22/17 Sex
--- OUTSIDE RECORDS SUMMARY | 2023-01-22 10:37 | XMS_ITS | Continuity of Care Document ---
Author Name Unknown Organization [facility] Address Unknown Care Team Providers Care Client Development Manager Name Role Phone Tejas Castillo MD Primary Care Physician [phone] Encounter [facility] Date(s): 12/06/21 - 01/05/22 [facility] Attending Physician: Admtr, Ar8 Admitting Physician: Admtr, Ar8 Referring Physician: Admtr, [...] 12/28/2011:08:00 EDT, Aerosol, Route to Pharmacy Electronically, [id number], [facility]/pharmacy #[id number], 167.1, cm, 12/28/19 11:35:00 EDT, He... Start Date: 12/28/19 Status: Ordered Claritin 10 mg oral tablet 10 mg, 1, tablet, By Mouth, Daily, # 30 tablet, Refills 11, Tot. Refills 11, Maintenance, 06/22/19 10:44:05 EDT, Route to Pharmacy Electronically, [id number], [facility]/pharmacy #[id number] Start Date: 06/22/19 Stop Date: 06/16/20 [...] in the system. please go to any [facility] lab., # 100 Gm, 0 Refills, Maintenance, 12/02/20 19:47:00 EST, Gel, [facility]/pharmacy #207, Partial fill... Start Date: 12/02/20 Status: Ordered diclofenac potassium 50 mg oral tablet 1 tablet = 50 mg, By Mouth, 3 times a day, PRN for pain, PRN Foot and knee pain. To replace naproxen. Ivorian. Take with food., # 50 tablet, 1 Refills, Maintenance, 01/02/21 16:27:00 EDT, Tablet, [facility]/pharmacy #[id number], Partial fill upon patient request i... Start Date: 01/02/21 Status: Ordered Excedrin Migraine oral tablet 2 tablet, By Mouth, Every 6 hours, PRN for headache, # 50 tablet, 0 Refills, Maintenance, 11/18/21 10:12:00 EST, Tablet, [facility]/pharmacy #[id number], Partial fill upon patient request if the prescription is for a schedule II opioid drug., 2 tablet By Mouth Niya... Start Date: 11/18/21 Status: Ordered Flovent HFA 110 mcg/inh inhalation aerosol 2 puffs, Inhalation, 2 times a day, # 12 Gm, 3 Refills, Maintenance, 12/28/19 12:07:00 EDT, Aerosol, [facility]/pharmacy #[id number], 167.1, cm, 12/28/19 11:35:00 EDT, Height, [...] 12.5 mg, By Mouth, Daily, label in somali, # 90 capsule, 1 Refills, Maintenance, 07/22/21 11:52:00 EDT, Capsule, [facility]/pharmacy #[id number], Partial fill upon patient request if [...] tablet, 0 Refills, Maintenance, 01/03/22 14:11:00 EDT, [facility] #[id number], Partial fill upon patient request if the prescription is for a schedule II opioid drug., 1 tablet By Mouth 2 times a day,x5 day... Start Date: 01/03/22 Stop Date: 01/08/22 Status: Ordered Paxlovid 150 mg-100 mg oral tablet See Instructions, 2 tabs of nirmatrelvir and 1 tab of ritonavir two times daily for five days, # 30each, 0 Refills, Maintenance, 01/03/22 15:50:00 EDT, [facility] #[id number], Partial fill uponpatient request if the prescription is for a schedu... Start Date: 01/03/22 Status: Ordered predniSONE 20 mg oral tablet See Instructions, in somali : one tab a day for 10 days then decrease to 1/2 tab a day for 7 d., #14 tablet, 0 Refills, Maintenance, 01/26/20 16:02:00 EDT, Tablet, [facility]/pharmacy #[id number], 167.1, cm, 01/11/20 11:27:00 EDT, Height, [...] Route to Pharmacy Electronically, [facility]/pharmacy #[id number], Partial... Start Date: 07/04/21 Stop Date: [...]
--- OUTSIDE RECORDS SUMMARY | 2023-01-22 10:37 | XMS_ITS | Continuity of Care Document ---
Demographics Address [address] [place] [address] Mobile Email Address Preferred Language es Marital Status Jehovah'S Witness Affiliation Unknown Race Unknown Ethnic Group or Author Name Unknown Organization [facility] Address [address] [place] [address]- Care Team Providers Care Millroom Supervisor Name Role Phone Josr MARTÍNEZ, Rika Yanes Primary Care Physician Encounter [facility] [id number] Date(s): 11/07/20 - 12/07/[address] [place] [address]- Attending Physician: Poonam Rich Admitting Physician: AdmPoonam muñiz Referring Physician: AdmtrPoonam [...] 12/28/2011:08:00 EDT, Aerosol, Route to Pharmacy Electronically, [id number], [facility], 167.1, cm, 12/28/19 11:35:00 EDT, He... Start Date: 12/28/19 Status: Ordered Claritin 10 mg oral tablet 10 mg, 1, tablet, By Mouth, Daily, # 30 tablet, Refills 11, Tot. Refills 11, Maintenance, 06/22/19 10:44:05 EDT, Route to Pharmacy Electronically, [id number], [id number] Start Date: 06/22/19 Stop Date: 06/16/20 Status: Ordered diclofenac 1% topical gel 1 application, Topically, 4 times a day, PRN Pain , Severe, right ankle and left wrist due for labs. orders in the system. please go to any [facility] lab., # 100 Gm, 0 Refills, Maintenance, 12/02/20 19:47:00 EST, Gel, [facility]/pharmacy #[id number], Partial fill... Start Date: 12/02/20 Status: Ordered Flovent HFA 110 mcg/inh inhalation aerosol 2 puffs, Inhalation, 2 times a day, # 12 Gm, 3 Refills, Maintenance, 12/28/19 12:07:00 EDT, Aerosol, [facility]/pharmacy #[id number], 167.1, cm, 12/28/19 11:35:00 [...] 20 mg oral tablet See Instructions, in hungarian : one tab a day for 10 [...]
--- OUTSIDE RECORDS SUMMARY | 2023-01-22 10:37 | XMS_ITS | Continuity of Care Document ---
Author Name Unknown Organization [facility] Address Adult Weight Managem ent [address] [place] [address]- Care Team Providers Care Matrix Bath Operator Name Role Phone Josr MARTÍNEZ, Rika Yanes Primary Care Physician Encounter [facility] [place] Date(s): 05/01/20 - 05/31/20 [facility] Adult [facility] [address] [place] [address]- [facility] Attending Physician: Poonam Rich Admitting Physician: AdmPoonam [...] 12/28/2011:08:00 EDT, Aerosol, Route to Pharmacy Electronically, [id number], [facility]/pharmacy #[id number], 167.1, cm, 12/28/19 11:35:00 EDT, He... Start Date: 12/28/19 Status: Ordered Claritin 10 mg oral tablet 10 mg, 1, tablet, By Mouth, Daily, # 30 tablet, Refills 11, Tot. Refills 11, Maintenance, 06/22/19 10:44:05 EDT, Route to Pharmacy Electronically, [id number], [facility]/pharmacy #[id number] Start Date: 06/22/19 Stop Date: 06/16/20 Status: Ordered Flovent HFA 110 mcg/inh inhalation aerosol 2 puffs, Inhalation, 2 times a day, # 12 Gm, 3 Refills, Maintenance, 12/28/19 12:07:00 EDT, Aerosol, [facility]/pharmacy #[id number], 167.1, cm, 12/28/19 [...] 20 mg oral tablet See Instructions, in japanese : one tab a day for 10 days then decrease to 1/2 tab a day for 7 d., #14 tablet, 0 Refills, Maintenance, 01/26/20 16:02:00 EDT, Tablet, [facility]/pharmacy #[id number], 167.1, cm, 01/11/20 [...]
--- OUTSIDE RECORDS SUMMARY | 2023-01-22 10:37 | XMS_ITS | Continuity of Care Document ---
Author Name Unknown Organization [facility] Address [address] [place] [address]- Care Team Providers Care Mechanical Design Engineer Products Name Role Phone Josr MARTÍNEZ, Rika Yanes Primary Care Physician [phone] Encounter [facility] [place] Date(s): 10/23/20 - 11/22/20 [facility]/[address] [address]- Allergies, Adverse Reactions, Alerts Substance Reaction Severity [...] 12/28/2011:08:00 EDT, Aerosol, Route to Pharmacy Electronically, [id number], [facility]/pharmacy #[id number], 167.1, cm, 12/28/19 11:35:00 EDT, He... Start Date: 12/28/19 Status: Ordered Claritin 10 mg oral tablet 10 mg, 1, tablet, By Mouth, Daily, # 30 tablet, Refills 11, Tot. Refills 11, Maintenance, 06/22/19 10:44:05 EDT, Route to Pharmacy Electronically, [id number], [id number] Start Date: 06/22/19 Stop Date: 06/16/20 Status: Ordered diclofenac 1% topical gel 1 application, Topically, 4 times a day, PRN Pain , Severe, right ankle and left wrist due for labs. orders in the system. please go to any [facility] lab., # 100 Gm, 0 Refills, Maintenance, 11/09/20 15:39:00 EST, Gel, [facility]/pharmacy #[id number], Partial fill... Start Date: 11/09/20 Status: Ordered Flovent HFA 110 mcg/inh inhalation aerosol 2 puffs, Inhalation, 2 times a day, # 12 Gm, 3 Refills, Maintenance, 12/28/19 12:07:00 EDT, Aerosol, [facility]/pharmacy #[id number], 167.1, cm, 12/28/19 11:35:00 [...] 20 mg oral tablet See Instructions, in gabonese : one tab a day for 10 [...]
--- OUTSIDE RECORDS SUMMARY | 2023-01-22 10:37 | XMS_ITS | Continuity of Care Document ---
Author Name Unknown Organization [facility] Address [address] [place] [address]- Care Team Providers Care Green Building Materials Distributor Name Role Phone Damian Reyes MD Primary Care Physician Encounter [facility] R [id number] Date(s): 04/18/22 - 05/18/[address] [address]- Attending Physician: Admmary kay, Abdullahi8 Admitting Physician: AdmtrPoonam Referring Physician: Admtr, Ar8 Allergies, Adverse Reactions, Alerts Substance Reaction Severity Status Tylenol with Codeine gets red and hot Act mulu SUMAtriptan Persistent Moderate Active Immunizations Given and Recorded Vaccine Date Status Refusal Reason SARS-CoV-2 mRNA (sueqwxi-earn-tctpu) vax 02/18/22 Given SARS-CoV-2 (COVID-19) mRNA BNT-162b2 [...] 12/28/2011:08:00 EDT, Aerosol, Route to Pharmacy Electronically, [id number], [facility] #[id number], 167.1, cm, 12/28/19 11:35:00 EDT, He... Start Date: 12/28/19 Status: Ordered Claritin 10 mg oral tablet 10 mg, 1, tablet, By Mouth, Daily, # 30 tablet, Refills 11, Tot. Refills 11, Maintenance, 06/22/19 10:44:05 EDT, Route to Pharmacy Electronically, [id number], [facility]/pharmacy #207 Start Date: 06/22/19 [...] Foot and knee pain. To replace naproxen. Bahraini. Take with food., # 50 tablet, 1 Refills, Maintenance, 01/02/21 16:27:00 EDT, Tablet, [facility]/pharmacy #207, Partial fill upon patient request i... Start Date: 01/02/21 Status: Ordered duloxetine 30 mg oral enteric coated capsule 1 capsule = 30 mg, By Mouth, Daily, # 30 capsule, 2 Refills, Maintenance, 04/29/22 11:24:00 EDT, [facility] #[id number], Partial fill upon patient request if the prescription is for a schedule II opioid drug., 167, cm, 04/29/22 10:51:00 EDT, He[place]... Start Date: 04/29/22 Status: Ordered Excedrin Migraine oral tablet 2 tablet, By Mouth, Every 6 hours, PRN for headache, # 50 tablet, 0 Refills, Maintenance, 11/18/21 10:12:00 EST, Tablet, [facility]/pharmacy #[id number], Partial fill [...] 12.5 mg, By Mouth, Daily, label in haitian, # 90 capsule, 1 Refills, Maintenance, 07/22/21 11:52:00 EDT, Capsule, [facility]/pharmacy #[id number], Partial fill upon [...] 04/20/22 15:33:00 EDT, Route to Pharmacy Electronically, [facility], Partial fill upon patient request if... Start Date: 04/20/22 Stop Date: 04/21/23 Status: Ordered Symbicort 160mcg/4.5mcg Inhaler 2, puffs, Inhalation, 2 times a day, # 10.2 Gm, Refills 3, Tot. Refills 3, Maintenance, 04/29/22 11:06:00 EDT, Aerosol, Route to Pharmacy Electronically, [id number], [facility] #[id number], 167, cm, 04/29/22 10:51:00 EDT... Start Date: 04/29/22 Status: Ordered Tylenol 325 mg oral tablet 650 mg, 2, tablet, By Mouth, Every 4 hours, # 50 tablet, Refills 0, Tot. Refills 0, Acute 04/21/23 15:34:00 EDT, 04/20/22 15:33:00 EDT, Route to Pharmacy Electronically, [facility], Partial fill upon patient request if [...]
--- OUTSIDE RECORDS SUMMARY | 2023-01-22 10:37 | XMS_ITS | Continuity of Care Document ---
Author Name Unknown Organization [facility] Address [address] [place] [address]- Care Team Providers Care Senior Ux Designer Name Role Phone Damian Reyes MD Primary Care Physician Encounter [facility] Date(s): 08/12/22 - 11/16/[address] [address] Attending Physician: Zach Yun MD Admitting Physician: Zach Yun MD Allergies, Adverse Reactions, Alerts Substance Reaction Severity Status Tylenol with Codeine gets red and hot Act mulu SUMAtriptan 1 Persistent Moderate Active 1Vomiting, weakness, flushing Immunizations Given and Recorded Vaccine Date Status Refusal Reason SARS-CoV-2 mRNA (mvczauc-oiyd-vwuur) vax 02/18/22 Given SARS-CoV-2 (COVID-19) mRNA BNT-162b2 [...] 08/04/2214:56:00 EDT, Aerosol, Route to Pharmacy Electronically, [id number], [facility] #[id number], 167, cm, 08/04/22 14:42:00... Start Date: 08/04/22 [...] 11/06/22 15:19:00 EST, Route to Pharmacy Electronically, [facility] #[id number], Partial fill upon patient request if the [...] 06/30/22 10:47:00 EDT, Route to Pharmacy Electronically, [facility] #[id number], Partial fill upon patientrequest if the prescription [...] 11:11:00 EST, Aerosol, Route to Pharmacy Electronically, [id number], [facility] #[id number], 167, cm, 09/11/22 11:44:00 EST... Start Date: [...] CENTER Resident Member Role: PCP Address: Address: [address] [place] [address]- Name: Zoya Rodgers RN Position: [facility] Onco RN Member Role: Primary Care Nurse Name: Jayde Llanos RN Position: [facility] RN Member Role: Primary Care Nurse Care Team Related Persons Name: RUSLAN MCCRARY Address: [address] [address] Name: BREANA MCCLENDON Address: home [address] [address] Name: DONTAE BAZZI Address: home [address] [place] [address] Name: CELESTINE BAZZI Address: home [address] [place] [address]
--- OUTSIDE RECORDS SUMMARY | 2023-01-22 10:38 | XMS_ITS | Continuity of Care Document ---
Author Name Unknown Organization [facility] Address [address] [place] [address]- Care Team Providers Care Halal Butcher Name Role Phone Josr MARTÍNEZ, Rika Yanes Primary Care Physician Encounter [facility] Date(s): 07/12/20 - 08/11/20 [facility]/[address] [address]- [facility] Allergies, Adverse Reactions, Alerts Substance Reaction [...] 12/28/2011:08:00 EDT, Aerosol, Route to Pharmacy Electronically, [id number], [facility]/pharmacy #2071, 167.1, cm, 12/28/19 11:35:00 EDT, He... Start Date: 12/28/19 Status: Ordered Claritin 10 mg oral tablet 10 mg, 1, tablet, By Mouth, Daily, # 30 tablet, Refills 11, Tot. Refills 11, Maintenance, 06/22/19 10:44:05 EDT, Route to Pharmacy Electronically, [id number], [facility]/pharmacy #2071 Start Date: 06/22/19 Stop Date: 06/16/20 Status: Ordered Flovent HFA 110 mcg/inh inhalation aerosol 2 puffs, Inhalation, 2 times a day, # 12 Gm, 3 Refills, Maintenance, 12/28/19 12:07:00 EDT, Aerosol, [facility]/pharmacy #[id number], 167.1, cm, 12/28/19 11:35:00 EDT, [...] 20 mg oral tablet See Instructions, in montserratian : one tab a day for 10 days then decrease to 1/2 tab a day for 7 d., #14 tablet, 0 Refills, Maintenance, 01/26/20 16:02:00 EDT, Tablet, [facility]/pharmacy #[id number], 167.1, cm, 01/11/20 11:27:00 EDT, [...]
--- OUTSIDE RECORDS SUMMARY | 2023-01-22 10:38 | XMS_ITS | Continuity of Care Document ---
Author Name Unknown Organization [facility] SS[facility] DEVELOPER Oncolog y Address [address] [place] [address]- Care Team Providers Care Set Builder Name Role Phone Tejas Castillo MD Primary Care Physician [phone] [place] [facility] [place] 11/12/21 - 12/12/21 [facility] SS[facility] DEVELOPER Oncology [address] [place] [address]- Attending Physician: Poonam Rich Admitting Physician: AdmPoonam [...] 12/28/2011:08:00 EDT, Aerosol, Route to Pharmacy Electronically, [id number], [facility]/pharmacy #[id number], 167.1, cm, 12/28/19 11:35:00 EDT, He... Start Date: 12/28/19 Status: Ordered Claritin 10 mg oral tablet 10 mg, 1, tablet, By Mouth, Daily, # 30 tablet, Refills 11, Tot. Refills 11, Maintenance, 06/22/19 10:44:05 EDT, Route to Pharmacy Electronically, [id number], [facility]/pharmacy #[id number] Start Date: 06/22/19 Stop [...] 0 Refills, Maintenance, 12/02/20 19:47:00 EST, Gel, [facility]/pharmacy #[id number], Partial fill... Start Date: 12/02/20 Status: Ordered diclofenac potassium 50 mg oral tablet 1 tablet = 50 mg, By Mouth, 3 times a day, PRN for pain, PRN Foot and knee pain. To replace naproxen. Citizen Of [place]. Take with food., # 50 tablet, 1 Refills, Maintenance, 01/02/21 16:27:00 EDT, Tablet, [facility]/pharmacy #[id number], Partial fill upon patient request i... Start Date: 01/02/21 Status: Ordered Excedrin Migraine oral tablet 2 tablet, By Mouth, Every 6 hours, PRN for headache, # 50 tablet, 0 Refills, Maintenance, 11/18/21 10:12:00 EST, Tablet, [facility]/pharmacy #[id number], Partial fill upon patient request if the prescription is for a schedule II opioid drug., 2 tablet By Mouth Niya... Start Date: 11/18/21 Status: Ordered Flovent HFA 110 mcg/inh inhalation aerosol 2 puffs, Inhalation, 2 times a day, # 12 Gm, 3 Refills, Maintenance, 12/28/19 12:07:00 EDT, Aerosol, [facility]/pharmacy #[id number], 167.1, cm, 12/28/19 11:35:00 [...] 12.5 mg, By Mouth, Daily, label in taiwanese, # 90 capsule, 1 Refills, Maintenance, 07/22/21 11:52:00 EDT, Capsule, [facility]/pharmacy #[id number], Partial fill upon patient [...] 20 mg oral tablet See Instructions, in taiwanese : one tab a day for 10 days then decrease to 1/2 tab a day for 7 d., #14 tablet, 0 Refills, Maintenance, 01/26/20 16:02:00 EDT, Tablet, [facility]/pharmacy #[id number], 167.1, cm, 01/11/20 11:27:00 [...] 07/04/21 15:33:00 EDT, Route to Pharmacy Electronically, [facility]/pharmacy #[id number], Partial... Start Date: 07/04/21 [...]
--- OUTSIDE RECORDS SUMMARY | 2023-01-22 10:38 | XMS_ITS | Continuity of Care Document ---
Author Name Unknown Organization [facility] Address [address] [place] [address]- Care Team Providers Care Driver License Examiner Name Role Phone Rika Ovalles NP Primary Care Physician [phone] [place] [facility] [place]20 - 01/21/20 [facility] [address] [address]- [facility] Attending Physician: Admmary kay, Abdullahi8 Admitting Physician: [...] 12/28/2011:08:00 EDT, Aerosol, Route to Pharmacy Electronically, [id number], [facility]/pharmacy #[id number], 167.1, cm, 12/28/19 11:35:00 EDT, He... Start Date: 12/28/19 Status: Ordered Claritin 10 mg oral tablet 10 mg, 1, tablet, By Mouth, Daily, # 30 tablet, Refills 11, Tot. Refills 11, Maintenance, 06/22/19 10:44:05 EDT, Route to Pharmacy Electronically, [id number], [facility]/pharmacy #[id number] Start Date: 06/22/19 [...]
--- OUTSIDE RECORDS SUMMARY | 2023-01-22 10:38 | XMS_ITS | Continuity of Care Document ---
Author Name Unknown Organization [facility] Address [address] [place] [address]- Care Team Providers Care Vending Machine Repairer Name Role Phone Damian Reyes MD Primary Care Physician [phone] [id number] Date(s): 10/17/22 - 01/17/[address] [address]- Attending Physician: Arturo Berry MD Admitting Physician: Arturo Berry MD Referring Physician: Damian Reyes MD Allergies, Adverse Reactions, Alerts Substance Reaction Severity Status Tylenol with Codeine gets red and hot Act mulu SUMAtriptan 1 Persistent Moderate Active 1Vomiting, weakness, flushing Immunizations Given and Recorded Vaccine Date Status Refusal Reason [id number] 12y+ bivalent booster vax 01/02/23 Given SARS-CoV-2 mRNA (umxjypg-bigq-wyhqm) vax 02/18/22 Given SARS-CoV-2 (COVID-19) mRNA BNT-162b2 [...] 08/04/2214:56:00 EDT, Aerosol, Route to Pharmacy Electronically, [id number], [facility] #[id number], 167, cm, 08/04/22 14:42:00... Start Date: 08/04/22 Status: Ordered AutoCPAP 8-20 with heated humidification AutoCPAP 8-20 with heated humidification, See Instructions, # 1 each, Refills 0, Tot. Refills 0, Maintenance, use overnight and naps from [facility], 12/10/22 13:36:00 EST, Compound Start Date: [...] Gm, 0 Refills, Maintenance, 01/02/23 11:21:00 EDT, [facility] #[id number], Partial fill upon patient request if the prescription is for a schedule II opioid drug., 167, cm, 01/02/23 10:... Start Date: 01/02/23 Stop Date: 02/01/23 Status: Ordered enalapril 5 mg oral tablet 5 mg, 1, tablet, By Mouth, Daily, # 30 tablet, Refills 3, Tot. Refills 3, Maintenance, 11/06/22 15:19:00 EST, Route to Pharmacy Electronically, [facility] #[id number], Partial fill upon patient request if the [...] 01/30/23 15:32:00 EDT, 01/16/23 15:32:00 EDT, Lotion, [facility] #[id number], Partial fill upon patient request ifthe prescription is for a schedule II opioid drug.,... Start Date: 01/16/23 Stop Date: 01/30/23 Status: Ordered meloxicam 7.5 mg oral tablet 1 tablet = 7.5 mg, By Mouth, 2 times a day, # 28 tablet, 0 Refills, Maintenance, 01/16/23 15:29:00 EDT, Tablet, [facility] #[id number], Partial fill upon patient request if the prescription is for a schedule II opioid drug., 167, cm, 01/16/23 14:... Start Date: 01/16/23 Stop Date: 01/30/23 Status: Ordered montelukast 10 mg oral tablet 10 mg, 1, tablet, By Mouth, Daily, # 30 tablet, Refills 5, Tot. Refills 5, Maintenance, 06/30/22 10:47:00 EDT, Route to Pharmacy Electronically, [facility] #[id number], Partial fill upon patientrequest if the prescription [...] 11:11:00 EST, Aerosol, Route to Pharmacy Electronically, [id number], [facility] #[id number], 167, cm, 09/11/22 11:44:00 EST... Start Date: 09/23/22 Status: Ordered tiZANidine 2 mg oral tablet 1, tablet, By Mouth, 3 times a day, # 90 tablet, Refills 0, Maintenance, 01/13/23 13:01:00 EDT, Route to Pharmacy Electronically, [facility] #[id number], 167, cm, 01/09/23 16:26:00 EDT, Height, 130.9, [...] Team Personnel Name: Damian Reyes MD Position: [facility] Resident Member Role: PCP Address: Address: [address] [place] [id number] Name: Vishal RN, Zoya Rueda Position: [facility] Onco RN Member Role: Primary Care Nurse Name: Jayde Llanos RN Position: [facility] RN Member Role: Primary Care Nurse Care Team Related Persons Name: RUSLAN MCCRARY Address: [address] [address] Name: BREANA MCCLENDON Address: home [address] [facility] [address] [address] Name: DONTAE BAZZI Address: home [address] [place] [address] Name: CELESTINE BAZZI Address: home [address] [place] [address]
--- OUTSIDE RECORDS SUMMARY | 2023-01-22 10:38 | XMS_ITS | Continuity of Care Document ---
Author Name Unknown Organization [facility] Address [address] [place] [address]- Care Team Providers Care Swim Coach Name Role Phone Damian Reyes MD Primary Care Physician [place] [facility] [place] [facility] [id number] Date(s): 09/26/22 - 10/26/22 [facility]/[place] [address]- Attending Physician: Tejas Castillo MD Admitting Physician: Tejas Castillo MD Allergies, Adverse Reactions, Alerts Substance Reaction Severity Status SUMAtriptan 1 Persistent Moderate Active Tylenol with Codeine gets red and hot Act mulu 1Vomiting, weakness, flushing Immunizations Given and Recorded Vaccine Date Status Refusal Reason SARS-CoV-2 mRNA (sdnctve-nmbb-bntcq) vax 02/18/22 Given SARS-CoV-2 (COVID-19) mRNA BNT-162b2 [...] 08/04/2214:56:00 EDT, Aerosol, Route to Pharmacy Electronically, [id number], [facility] #[id number], 167, cm, 08/04/22 14:42:00... Start Date: 08/04/22 [...] mg. Take in AM for high BP. Indian, # 30 tablet, Refills 11, Tot. Refills 11, Maintenance, 06/05/22 11:32:00 EDT, Route to Pharmacy Electronically, [facility] #[id number]... Start Date: 06/05/22 Status: Ordered montelukast 10 mg oral tablet 10 mg, 1, tablet, By Mouth, Daily, # 30 tablet, Refills 5, Tot. Refills 5, Maintenance, 06/30/22 10:47:00 EDT, Route to Pharmacy Electronically, [facility] #[id number], Partial fill upon patientrequest if the prescription [...] 11:11:00 EST, Aerosol, Route to Pharmacy Electronically, [id number], [facility] #[id number], 167, cm, 09/11/22 11:44:00 EST... Start Date: 09/23/22 Status: Ordered Tylenol 8 HR Arthritis Pain 650 mg oral tablet, extended release 1 tablet = 650 mg, By Mouth, Every 8 hours, PRN as needed for pain, for 30 days, # 90 tablet, 0 Refills, Acute 11/09/22 12:19:00 EST, 10/10/22 12:19:00 EST, ER Tablet, [facility] #[id number], Partial fill upon patient request if the [...] Team Personnel Name: Damian Reyes MD Position: [facility] Resident Member Role: PCP Address: Address: [address] [place] [id number] Name: Zoya Rodgers RN Position: [facility] Onco RN Member Role: Primary Care Nurse Name: Jayde Llanos RN Position: [facility] RN Member Role: Primary Care Nurse Care Team Related Persons Name: RUSLAN MCCRARY Address: home [address] [facility] [address] [address] Name: BREANA MCCLENDON Address: home [address] [facility] [address] [address] Name: DONTAE BAZZI Address: home [address] [place] [address] Name: CELESTINE BAZZI Address: [place] [address]
--- OUTSIDE RECORDS SUMMARY | 2023-01-22 10:38 | XMS_ITS | Continuity of Care Document ---
Author Name Unknown Organization [facility] Address [address] [place] [address]- Care Team Providers Care Zmt Operator Name Role Phone Josr MARTÍNEZ, Rika Yanes Primary Care Physician [phone] [place] [facility] [place](s): 01/01/21 - 01/31/21 [facility]/[address] [address]- Allergies, Adverse Reactions, Alerts Substance Reaction Severity [...] 12/28/2011:08:00 EDT, Aerosol, Route to Pharmacy Electronically, [id number], [facility]/pharmacy #[id number], 167.1, cm, 12/28/19 11:35:00 EDT, He... Start Date: 12/28/19 Status: Ordered baclofen 10 mg oral tablet 10 mg, 1, tablet, By Mouth, 3 times a day, # 63 tablet, Refills 0, Tot. Refills 0, Maintenance, 01/08/21 9:14:00 EDT, Route to Pharmacy Electronically, [facility]/pharmacy #[id number], Partial fill upon patient request if the prescription is for a schedule II opio... Start Date: 01/08/21 Stop Date: 01/29/21 Status: Ordered Claritin 10 mg oral tablet 10 mg, 1, tablet, By Mouth, Daily, # 30 tablet, Refills 11, Tot. Refills 11, Maintenance, 06/22/19 10:44:05 EDT, Route to Pharmacy Electronically, [id number], [facility]/pharmacy #[id number] Start Date: 06/22/19 Stop Date: 06/16/20 Status: Ordered diclofenac 1% topical gel 1 application, Topically, 4 times a day, PRN Pain , Severe, right ankle and left wrist due for labs. orders in the system. please go to any [facility] lab., # 100 Gm, 0 Refills, Maintenance, 12/02/20 19:47:00 EST, Gel, [facility]acy #[id number], Partial fill... Start Date: 12/02/20 Status: Ordered diclofenac potassium 50 mg oral tablet 1 tablet = 50 mg, By Mouth, 3 times a day, PRN for pain, PRN Foot and knee pain. To replace naproxen. Maori. Take with food., # 50 tablet, 1 [...] 20 mg oral tablet See Instructions, in occitan : one tab a day for 10 [...]
--- OUTSIDE RECORDS SUMMARY | 2023-01-22 10:38 | XMS_ITS | Continuity of Care Document ---
Author Name Unknown Organization [facility] Address [address] [place] [address]- Care Team Providers Care Electromechanical Assembly Technician Name Role Phone Damian Reyes MD Primary Care Physician Encounter [facility] [place] Date(s): 12/15/22 - 01/14/23 [facility]/[address] [address]- [place] Allergies, Adverse Reactions, Alerts Substance Reaction Severity Status Tylenol with Codeine gets red and hot Act mulu SUMAtriptan 1 Persistent Moderate Active 1Vomiting, weakness, flushing Immunizations Given and Recorded Vaccine Date Status Refusal Reason [id number] 12y+ bivalent booster vax 01/02/23 Given SARS-CoV-2 mRNA (szmnclg-kena-bdzhz) vax 02/18/22 Given SARS-CoV-2 (COVID-19) mRNA BNT-162b2 [...] 08/04/2214:56:00 EDT, Aerosol, Route to Pharmacy Electronically, [id number], [facility] #[id number], 167, cm, 08/04/22 14:42:00... Start Date: 08/04/22 Status: Ordered AutoCPAP 8-20 with heated humidification AutoCPAP 8-20 with heated humidification, See Instructions, # 1 each, Refills 0, Tot. Refills 0, Maintenance, use overnight and naps from [facility], 12/10/22 13:36:00 EST, Compound Start Date: [...] Gm, 0 Refills, Maintenance, 01/02/23 11:21:00 EDT, [facility] #[id number], Partial fill upon patient request if the prescription is for a schedule II opioid drug., 167, cm, 01/02/23 10:... Start Date: 01/02/23 Stop Date: 02/01/23 Status: Ordered enalapril 5 mg oral tablet 5 mg, 1, tablet, By Mouth, Daily, # 30 tablet, Refills 3, Tot. Refills 3, Maintenance, 11/06/22 15:19:00 EST, Route to Pharmacy Electronically, [facility] #[id number], Partial fill upon patient request if the [...] 06/30/22 10:47:00 EDT, Route to Pharmacy Electronically, [facility] #[id number], Partial fill upon patientrequest if the prescription [...] 11:11:00 EST, Aerosol, Route to Pharmacy Electronically, [id number], [facility] #[id number], 167, cm, 09/11/22 11:44:00 EST... Start Date: 09/23/22 Status: Ordered tiZANidine 2 mg oral tablet 1, tablet, By Mouth, 3 times a day, # 90 tablet, Refills 0, Maintenance, 01/13/23 13:01:00 EDT, Route to Pharmacy Electronically, [facility] #[id number], 167, cm, 01/09/23 16:26:00 EDT, Height, 130.9, [...] Team Personnel Name: Damian Reyes MD Position: [facility] Resident Member Role: PCP Address: Address: [address] [place] [id number] Name: Zoya Rodgers RN Position: [facility] Onco RN Member Role: Primary Care Nurse Name: Jayde Llanos RN Position: [facility] RN Member Role: Primary Care Nurse Care Team Related Persons Name: RUSLAN MCCRARY Address: [address] [address] Name: BREANA MCCLENDON Address: home [address] [address] Name: DONTAE BAZZI Address: home [address] [place] [address] Name: CELESTINE BAZZI Address: home [address] [place] [address]
--- OUTSIDE RECORDS SUMMARY | 2023-01-22 10:38 | XMS_ITS | Continuity of Care Document ---
Author Name Unknown Organization [facility] Address [address] [place] [address]- Care Team Providers Care Oil Lease Operator Name Role Phone Josr MARTÍNEZ, Rika Yanes Primary Care Physician [place] [facility] [place] 08/02/19 - 10/02/19 [facility]/[address] [address] [facility] Attending Physician: Stacie Mccray MD Admitting Physician: Stacie Mccray MD Allergies, Adverse Reactions, [...] 06/22/1910:43:10 EDT, Aerosol, Route to Pharmacy Electronically, [id number], [facility]/pharmacy #[id number] Start Date: 06/22/19 Status: Ordered albuterol-ipratropium 3 [...] 06/22/19 10:44:05 EDT, Route to Pharmacy Electronically, [id number], [facility]/pharmacy #2070 Start Date: 06/22/19 Stop Date: [...] with food. not to exceed 3200 mg/day Hungarian., # 30 tablet, Refills 0, Tot. Refills 0, Maintenance, Pain, 08/05/19 14:38:40 EDT, Route to Pharmacy Electronically, [id number]... Start Date: 08/05/19 Status: Ordered Nebulizer/Compressor See [...]
--- OUTSIDE RECORDS SUMMARY | 2023-01-22 10:38 | XMS_ITS | Continuity of Care Document ---
Author Name Unknown Organization [facility] Address [address] [place] [address]- Care Team Providers Care Size Worker Name Role Phone Rika Ovalles NP Primary Care Physician [phone] En[place] [facility] [place] Date(s): 01/13/20 - 01/20/20 [facility]/[address] [address]- [facility] Attending Physician: Rika Ovalles NP Admitting Physician: [...] 12/28/2011:08:00 EDT, Aerosol, Route to Pharmacy Electronically, [id number], [facility]/pharmacy #2071, 167.1, cm, 12/28/19 11:35:00 EDT, He... Start Date: 12/28/19 Status: Ordered Claritin 10 mg oral tablet 10 mg, 1, tablet, By Mouth, Daily, # 30 tablet, Refills 11, Tot. Refills 11, Maintenance, 06/22/19 10:44:05 EDT, Route to Pharmacy Electronically, [id number], [facility]/pharmacy #2071 Start Date: 06/22/19 Stop Date: 06/16/20 Status: Ordered Flovent HFA 110 mcg/inh inhalation aerosol 2 puffs, Inhalation, 2 times a day, # 12 Gm, 3 Refills, Maintenance, 12/28/19 12:07:00 EDT, Aerosol, [facility]/pharmacy #[id number], 167.1, cm, 12/28/19 11:35:00 EDT, Height, [...]
--- OUTSIDE RECORDS SUMMARY | 2023-01-22 10:38 | XMS_ITS | Continuity of Care Document ---
Author Name Unknown Organization [facility] Address [address] [address]- Care Team Providers Care Home Stereo Equipment Installer Name Role Phone Rika Ovalles NP Primary Care Physician [phone] Encounter [facility] [id number] Date(s): 10/23/20 - 12/07/[address] [place] [address]- Attending Physician: Kristin CROSS, Hamilton Crowe Referring Physician: Rika Ovalles NP Allergies, Adverse [...] 0 Refills, Maintenance, 11/18/19 14:20:00 EST, Solution, [facility]/pharmacy #[id number], 167.1, cm, 11/18/19 13:45:00 EST, Height, [...] 12/28/2011:08:00 EDT, Aerosol, Route to Pharmacy Electronically, [id number], [facility]/pharmacy #2071, 167.1, cm, 12/28/19 11:35:00 EDT, He... Start Date: 12/28/19 Status: Ordered Claritin 10 mg oral tablet 10 mg, 1, tablet, By Mouth, Daily, # 30 tablet, Refills 11, Tot. Refills 11, Maintenance, 06/22/19 10:44:05 EDT, Route to Pharmacy Electronically, [id number], [facility] Start Date: 06/22/19 Stop Date: 06/16/20 Status: Ordered diclofenac 1% topical gel 1 application, Topically, 4 times a day, PRN Pain , Severe, right ankle and left wrist due for labs. orders in the system. please go to any [facility] lab., # 100 Gm, 0 Refills, Maintenance, 12/02/20 19:47:00 EST, Gel, [facility]/pharmacy #[id number], Partial fill... Start Date: 12/02/20 Status: Ordered Flovent HFA 110 mcg/inh inhalation aerosol 2 puffs, Inhalation, 2 times a day, # 12 Gm, 3 Refills, Maintenance, 12/28/19 12:07:00 EDT, Aerosol, [facility]/pharmacy #[id number], 167.1, cm, 12/28/19 11:35:00 [...] 20 mg oral tablet See Instructions, in urdu : one tab a day for 10 [...]
--- OUTSIDE RECORDS SUMMARY | 2023-01-22 10:38 | XMS_ITS | Continuity of Care Document ---
Author Name Unknown Organization [facility] Address [address] [place] [address]- Care Team Providers Care Automotive Parts Clerk Name Role Phone Damian Reyes MD Primary Care Physician [phone] Encounter [facility] [place] Date(s): 09/27/22 - 11/02/[address] [address]- Attending Physician: Arturo Berry MD Admitting Physician: Arturo Berry MD Referring Physician: Arturo Berry MD Allergies, Adverse Reactions, Alerts Substance Reaction Severity Status Tylenol with Codeine gets red and hot Act mulu SUMAtriptan 1 Persistent Moderate Active 1Vomiting, weakness, flushing Immunizations Given and Recorded Vaccine Date Status Refusal Reason SARS-CoV-2 mRNA (pcgpfby-frrq-ioubm) vax 02/18/22 Given SARS-CoV-2 (COVID-19) mRNA BNT-162b2 [...] 08/04/2214:56:00 EDT, Aerosol, Route to Pharmacy Electronically, [id number], [facility] #[id number], 167, cm, 08/04/22 14:42:00... Start Date: 08/04/22 [...] mg. Take in AM for high BP. Finnish, # 30 tablet, Refills 11, Tot. Refills 11, Maintenance, 06/05/22 11:32:00 EDT, Route to Pharmacy Electronically, [facility] #[id number]... Start Date: 06/05/22 Status: Ordered montelukast 10 mg oral tablet 10 mg, 1, tablet, By Mouth, Daily, # 30 tablet, Refills 5, Tot. Refills 5, Maintenance, 06/30/22 10:47:00 EDT, Route to Pharmacy Electronically, [facility] #[id number], Partial fill upon patientrequest if the prescription [...] 11:11:00 EST, Aerosol, Route to Pharmacy Electronically, [id number], [facility] #[id number], 167, cm, 09/11/22 11:44:00 EST... Start Date: 09/23/22 Status: Ordered Tylenol 8 HR Arthritis Pain 650 mg oral tablet, extended release 1 tablet = 650 mg, By Mouth, Every 8 hours, PRN as needed for pain, for 30 days, # 90 tablet, 0 Refills, Acute 11/09/22 12:19:00 EST, 10/10/22 12:19:00 EST, ER Tablet, [facility] #[id number], Partial fill upon patient request if the [...] Team Personnel Name: Damian Reyes MD Position: [facility] Resident Member Role: PCP Address: Address: [address] [place] [id number] Name: Zoya Rodgers RN Position: [facility] Onco RN Member Role: Primary Care Nurse Name: Jayde Llanos RN Position: [facility] RN Member Role: Primary Care Nurse Care Team Related Persons Name: RUSLAN MCCRARY Address: home [address] [facility] [address] [address] Name: BREANA MCCLENDON Address: home [address] [facility] [address] [place] [address] Name: DONTAE BAZZI Address: home [address] [place] [address] Name: CELESTINE BAZZI Address: home [address] [place] [address]
--- OUTSIDE RECORDS SUMMARY | 2023-01-22 10:38 | XMS_ITS | Continuity of Care Document ---
Author Name Unknown Organization [facility] Address Unknown Care Team Providers Care Hand Hardener Name Role Phone Jonathan CROSS, Tejas Primary Care Physician Encounter [facility] Date(s): 04/11/22 - 05/11/22 [facility] Allergies, Adverse Reactions, Alerts Substance Reaction Severity Status Tylenol with Codeine gets red and hot Act mulu SUMAtriptan Persistent Moderate Active Immunizations Given and Recorded Vaccine Date Status Refusal Reason SARS-CoV-2 mRNA ([id number]-pohjt) vax 02/18/22 Given SARS-CoV-2 (COVID-19) mRNA BNT-162b2 [...] 12/28/2011:08:00 EDT, Aerosol, Route to Pharmacy Electronically, [id number], [facility]/pharmacy #[id number], 167.1, cm, 12/28/19 11:35:00 EDT, He... Start Date: 12/28/19 Status: Ordered Claritin 10 mg oral tablet 10 mg, 1, tablet, By Mouth, Daily, # 30 tablet, Refills 11, Tot. Refills 11, Maintenance, 06/22/19 10:44:05 EDT, Route to Pharmacy Electronically, [id number], [facility]/pharmacy #[id number] Start Date: 06/22/19 Stop Date: [...] in the system. please go to any [facility] lab., # 100 Gm, 0 Refills, Maintenance, 12/02/20 19:47:00 EST, Gel, [facility]/pharmacy #[id number], Partial fill... Start Date: 12/02/20 Status: Ordered diclofenac potassium 50 mg oral tablet 1 tablet = 50 mg, By Mouth, 3 times a day, PRN for pain, PRN Foot and knee pain. To replace naproxen. Afghan. Take with food., # 50 tablet, 1 Refills, Maintenance, 01/02/21 16:27:00 EDT, Tablet, [facility]/pharmacy #[id number], Partial fill upon patient request i... Start Date: 01/02/21 Status: Ordered duloxetine 30 mg oral enteric coated capsule 1 capsule = 30 mg, By Mouth, Daily, # 30 capsule, 2 Refills, Maintenance, 04/29/22 11:24:00 EDT, [facility] #[id number], Partial fill upon patient request if the prescription is for a schedule II opioid drug., 167, cm, 04/29/22 10:51:00 EDT, Heig... Start Date: 04/29/22 Status: Ordered Excedrin Migraine oral tablet 2 tablet, By Mouth, Every 6 hours, PRN for headache, # 50 tablet, 0 Refills, Maintenance, 11/18/21 10:12:00 EST, Tablet, [facility]/pharmacy #[id number], Partial fill upon patient request [...] 12.5 mg, By Mouth, Daily, label in pashto, # 90 capsule, 1 Refills, Maintenance, 07/22/21 11:52:00 EDT, Capsule, [facility]/pharmacy #[id number], Partial fill upon patient request [...] 04/20/22 15:33:00 EDT, Route to Pharmacy Electronically, [facility], Partial fill upon patient request if... Start Date: 04/20/22 Stop Date: 04/21/23 Status: Ordered Symbicort 160mcg/4.5mcg Inhaler 2, puffs, Inhalation, 2 times a day, # 10.2 Gm, Refills 3, Tot. Refills 3, Maintenance, 04/29/22 11:06:00 EDT, Aerosol, Route to Pharmacy Electronically, [id number], [id number], 167, cm, 04/29/22 10:51:00 EDT... Start Date: 04/29/22 Status: Ordered Tylenol 325 mg oral tablet 650 mg, 2, tablet, By Mouth, Every 4 hours, # 50 tablet, Refills 0, Tot. Refills 0, Acute 04/21/23 15:34:00 EDT, 04/20/22 15:33:00 EDT, Route to Pharmacy Electronically, [facility], Partial fill upon patient [...]
--- OUTSIDE RECORDS SUMMARY | 2023-01-22 10:38 | XMS_ITS | Continuity of Care Document ---
Author Name Unknown Organization [facility] Address [address] [place] [address]- Care Team Providers Care Chicken Cleaner Name Role Phone Josr MARTÍNEZ, Rika Yanes Primary Care Physician [phone] Encounter [facility] Date(s): 01/13/20 - 01/23/20 [facility]/[address] [address]- [facility] Attending Physician: Admtr, Ar8 Allergies, Adverse [...] 12/28/2011:08:00 EDT, Aerosol, Route to Pharmacy Electronically, [id number], [facility]/pharmacy #[id number], 167.1, cm, 12/28/19 11:35:00 EDT, He... Start Date: 12/28/19 Status: Ordered Claritin 10 mg oral tablet 10 mg, 1, tablet, By Mouth, Daily, # 30 tablet, Refills 11, Tot. Refills 11, Maintenance, 06/22/19 10:44:05 EDT, Route to Pharmacy Electronically, [id number], [facility]/pharmacy #207 Start Date: 06/22/19 Stop Date: 06/16/20 [...]
--- OUTSIDE RECORDS SUMMARY | 2023-01-22 10:38 | XMS_ITS | Continuity of Care Document ---
Author Name Unknown Organization [facility] Address [address] [place] [address]- Care Team Providers Care Library Assistant Name Role Phone Rika Ovalles NP Primary Care Physician Encounter [facility] Date(s): 01/11/20 - 01/18/[address] [address]- [facility] Attending Physician: Dimple Berry MD Admitting Physician: [...] 12/28/2011:08:00 EDT, Aerosol, Route to Pharmacy Electronically, [id number], [facility]/pharmacy #[id number], 167.1, cm, 12/28/19 11:35:00 EDT, He... Start Date: 12/28/19 Status: Ordered Claritin 10 mg oral tablet 10 mg, 1, tablet, By Mouth, Daily, # 30 tablet, Refills 11, Tot. Refills 11, Maintenance, 06/22/19 10:44:05 EDT, Route to Pharmacy Electronically, [id number], [facility]/pharmacy #[id number] Start [...] oldest [Reference Range]: 1 Height 167.1 cm (01/11/20 11:27 AM) Weight 121 kg (01/11/20 11:27 AM) Social History Social History Type Response Smoking Status Never smoker entered on: 07/22/17 Sex
[2023-01-22] MEDS: Ketorolac Tromethamine 15 MG/ML VIAL IM (10:59)
--- NOTE | 2023-01-22 11:01 | PC.NURSE ---
patient medicated per order, pt to be discharged as all labs/ekg were wnl
== END 2023-01-22 11:06 | disposition home or self-care (01) ==
PROVIDERS: Emergency Provider Emergency Medicine
DX: R07.89 Other chest pain (principal); J45.909 Unspecified asthma, uncomplicated; R94.31 Abnormal electrocardiogram [ECG] [EKG]; Z79.899 Other long term (current) drug therapy
CPT/HCPCS: 36415; 71046; 80048; 84484; 85025; 93005; 96372; 99284; J1885

== ENCOUNTER 2023-01-29 12:12 | Emergency (ER) | payer OTHER, SELFPAY ==
--- NOTE | 2023-01-29 12:21 | ED.GENADULT ---
HPI - General Adult General Chief complaint: General Medical Stated complaint: High Blood Pressure Time Seen by Provider: 01/29/23 13:15 Related Data Allergies Allergy/AdvReac Type Severity Reaction Status Date / Time acetaminophen [From TYLENOL] Allergy Mild HIVES Verified 01/22/23 09:49 codeine [CODEINE] Allergy Unknown HIVES Verified 01/22/23 09:49 sumatriptan Allergy Shortness Verified 01/29/23 12:22 of Breath PMFSH Past Medical History Medical History Asthma Cervical cancer Surgical History History of hysterectomy Social History Social History Alcohol intake: never Advance Directives: No Advance Directives Information Provided: No Physical Exam ED Vital Signs: Vital Signs - 24 hr 01/29/23 12:23 01/29/23 13:23 01/29/23 13:25 Temperature 98 F Pulse Rate 78 83 82 Respiratory Rate 19 Blood Pressure 140/85 H 143/90 H 145/91 H Pulse Oximetry 99 Oxygen Delivery Method Room Air 01/29/23 13:27 01/29/23 16:00 Temperature 97.4 F Pulse Rate 82 81 Respiratory Rate 16 Blood Pressure 138/92 H 123/87 Pulse Oximetry 98 Oxygen Delivery Method Room Air BMI result Body Mass Index 44.5 Course Course Course Narrative: RME--42yo F w/PMHx asthma, cervical CA, c/o elevated BP (127/105 at home) days and dizziness x3 days. Admits to taking her HCTZ 12.5mg. Reports assoc headache and CP In Triage 140/85 EKG, labs, orthostatics ordered Medical Decision Making Lab Data 01/29/23 12:33 01/29/23 12:33 Labs: Lab Results 01/29/23 01/29/23 01/29/23 Range/Units 12:33 12:33 12:33 WBC 12.3 H (4.8-10.8) X10*3/uL RBC 5.09 (4.20-5.50) X10*6/uL Hgb 13.3 (12.0-16.0) g/dl Hct 41.8 (37.0-47.0) % MCV 82.1 (80.0-98.0) fL MCH 26.1 L (27.0-33.0) pg MCHC 31.8 (31.0-35.0) g/dl RDW 13.9 (11.0-16.0) % Plt Count 372 (160-400) X10*3/uL MPV 9.5 (9.4-12.3) fL Immature Gran % (Auto) 0.5 H (0.0-0.4) % Neut % (Auto) 65.4 (45-73) % Lymph % (Auto) 23.6 (20-40) % [place] % (Auto) 7.1 (2-11) % Eos % (Auto) 2.8 (0-4) % Baso % (Auto) 0.6 (0-2) % Lymph # (Auto) 2.9 (1.2-4.9) X10*3/uL [place] # (Auto) 0.9 (0.1-1.2) X10*3/uL Eos # (Auto) 0.3 (0.0-0.4) X10*3/uL Baso # (Auto) 0.1 (0.0-0.2) X10*3/uL Abs Immat Gran (auto) 0.06 H (0.00-0.03) X10*3/uL Absolute Neuts (auto) 8.0 (2.0-8.3) x10*3/uL Absolute Nucleated RBC 0.000 (0.0-0.012) X10*3/uL Nucleated RBC % (auto) 0.0 (0.0-0.2) /100WBC Sodium 138 (135-145) mmol/L Potassium 3.8 (3.3-5.1) mmol/L Chloride 99 (96-108) mmol/L Carbon Dioxide 28 (22-29) mmol/L Anion Gap 15 (12-20) BUN 15 (9-16) mg/dL Creatinine 0.81 (0.5-1.4) mg/dL Estim Creat Clear Calc 129.0 Estimated GFR > 60 Random Glucose 101 (60-115) mg/dL Calcium 9.5 D (8.4-10.2) mg/dL Magnesium 2.0 (1.6-2.6) mg/dL Total Bilirubin 0.6 (0.0-1.0) mg/dL Direct Bilirubin 0.2 (0.0-0.5) mg/dL AST 27 (5-31) U/L ALT 37 H (0-31) U/L Alkaline Phosphatase 114 (39-117) U/L Troponin I High Sens < 2.7 (<3.5-17.0) ng/L Total Protein 8.2 H (6.5-8.0) g/dL Albumin 4.0 (3.5-5.0) g/dL 01/29/23 Range/Units 15:17 WBC (4.8-10.8) X10*3/uL RBC (4.20-5.50) X10*6/uL Hgb (12.0-16.0) g/dl Hct (37.0-47.0) % MCV (80.0-98.0) fL MCH (27.0-33.0) pg MCHC (31.0-35.0) g/dl RDW (11.0-16.0) % Plt Count (160-400) X10*3/uL MPV (9.4-12.3) fL Immature Gran % (Auto) (0.0-0.4) % Neut % (Auto) (45-73) % Lymph % (Auto) (20-40) % [place] % (Auto) (2-11) % Eos % (Auto) (0-4) % Baso % (Auto) (0-2) % Lymph # (Auto) (1.2-4.9) X10*3/uL [place] # (Auto) (0.1-1.2) X10*3/uL Eos # (Auto) (0.0-0.4) X10*3/uL Baso # (Auto) (0.0-0.2) X10*3/uL Abs Immat Gran (auto) (0.00-0.03) X10*3/uL Absolute Neuts (auto) (2.0-8.3) x10*3/uL Absolute Nucleated RBC (0.0-0.012) X10*3/uL Nucleated RBC % (auto) (0.0-0.2) /100WBC Sodium (135-145) mmol/L Potassium (3.3-5.1) mmol/L Chloride (96-108) mmol/L Carbon Dioxide (22-29) mmol/L Anion Gap (12-20) BUN (9-16) mg/dL Creatinine (0.5-1.4) mg/dL Estim Creat Clear Calc Estimated GFR Random Glucose (60-115) mg/dL Calcium (8.4-10.2) mg/dL Magnesium (1.6-2.6) mg/dL Total Bilirubin (0.0-1.0) mg/dL Direct Bilirubin (0.0-0.5) mg/dL AST (5-31) U/L ALT (0-31) U/L Alkaline Phosphatase (39-117) U/L Troponin I High Sens < 2.7 (<3.5-17.0) ng/L Total Protein (6.5-8.0) g/dL Albumin (3.5-5.0) g/dL Discharge Plan Discharge Clinical Impression: Chest pain, Hypertension Patient Disposition: Home, Self-Care Instructions: Chest Pain (ED) Referrals: [facility] [Physician] - 02/02/23 Interventions: ED Discharge Assessment Last Done: 01/29/23 16:15 Discharge Date/Time: 01/29/23 16:15
[2023-01-29 12:23] VITALS: BP 140/85; PULSE 78; RESP 19; TEMP 36.6; O2SAT 99; BMI 44.5
--- NOTE | 2023-01-29 12:24 | ECG_ITS ---
Test Reason : high blod pressure Blood Pressure : / mmHG Vent. Rate : 082 BPM Atrial Rate : 082 BPM P-R Int : 154 ms QRS Dur : 076 ms QT Int : 390 ms P-R-T Axes : -23 -09 008 degrees QTc Int : 455 ms Normal sinus rhythm Moderate voltage criteria for LVH, may be normal variant ( R in aVL , [place] product ) Borderline ECG When compared with ECG of 22-JAN-2023 09:40, No significant change was found Referred By: Clare Hi Electronically Signed By:CB LEONARD
[2023-01-29 12:36] LABS: MANUAL DIFF FLAG NO
[2023-01-29 12:39] LABS: Basophils Absolute Auto 0.1 X10*3/uL (0.0-0.2); Basophils Percent Auto 0.6 % (0-2); Eosinophils Absolute Auto 0.3 X10*3/uL (0.0-0.4); Eosinophils Percent Auto 2.8 % (0-4); Hematocrit 41.8 % (37.0-47.0); Hemoglobin 13.3 g/dl (12.0-16.0); Imm Gran Abs Auto 0.06 X10*3/uL (0.00-0.03); Imm Gran Pct Auto 0.5 % (0.0-0.4); Lymphocytes Absolute Auto 2.9 X10*3/uL (1.2-4.9); Lymphocytes Percent Auto 23.6 % (20-40); Mean Corpuscular HGB Conc 31.8 g/dl (31.0-35.0); Mean Corpuscular Hemoglobin 26.1 pg (27.0-33.0); Mean Corpuscular Volume 82.1 fL (80.0-98.0); Mean Platelet Volume 9.5 fL (9.4-12.3); Monocytes Absolute Auto 0.9 X10*3/uL (0.1-1.2); Monocytes Percent Auto 7.1 % (2-11); Neutrophils Percent Auto 65.4 % (45-73); Platelet Count 372 X10*3/uL (160-400); Red Blood Count 5.09 X10*6/uL (4.20-5.50); Red Cell Distribution Width 13.9 % (11.0-16.0); White Blood Count 12.3 X10*3/uL (4.8-10.8)
[2023-01-29 12:56] LABS: Alanine Aminotransferase 37 U/L (0-31); Alkaline Phosphatase 114 U/L (39-117); Anion Gap 15 (12-20); Aspartate Amino Transferase 27 U/L (5-31); Bilirubin Direct 0.2 mg/dL (0.0-0.5); Bilirubin Total 0.6 mg/dL (0.0-1.0); Blood Urea Nitrogen 15 mg/dL (9-16); Calcium 9.5 mg/dL (8.4-10.2); Carbon Dioxide 28 mmol/L (22-29); Chloride 99 mmol/L (96-108); Estimated Glomerular Filt Rate > 60; Glucose Random 101 mg/dL (60-115); Potassium 3.8 mmol/L (3.3-5.1); Sodium 138 mmol/L (135-145); Total Protein 8.2 g/dL (6.5-8.0)
[2023-01-29 13:08] LABS: Troponin-I High Sensitivity < 2.7 ng/L (<3.5-17.0)
[2023-01-29 13:23] VITALS: BP 143/90; PULSE 83
[2023-01-29 13:25] VITALS: BP 145/91; PULSE 82
[2023-01-29 13:27] VITALS: BP 138/92; PULSE 82
--- NOTE | 2023-01-29 13:32 | ED.GENADULT ---
HPI - General Adult General Chief complaint: General Medical Stated complaint: High Blood Pressure Time Seen by Provider: 01/29/23 13:15 History of Present Illness HPI narrative: Patient is a 42-year-old female with a history being in the emergency department for chest pain evaluation about 1 week ago. Patient continues have similar pains. Claims the pain is mid chest. It is not associated with shortness of breath or diaphoresis. She is not on control. It has no specific triggers. Patient chest pain goes away on its own. It lasts for approximately 2 hours. It started approximately 9-10 a.m. this morning. Now is basically gone. Patient also worried about her blood pressure which has gone up to the 130s to 140s over 100. She has a history of high blood pressure and is compliant with medications. Patient denies any history of diabetes, high cholesterol, smoking, [place]. No family history of coronary artery disease. No leg swelling no travel. No history of blood clots. Pain is not made worse with deep inspiration. It is not associated with shortness of breath. Patient is from home Related Data Allergies Allergy/AdvReac Type Severity Reaction Status Date / Time acetaminophen [From TYLENOL] Allergy Mild HIVES Verified 01/22/23 09:49 codeine [CODEINE] Allergy Unknown HIVES Verified 01/22/23 09:49 sumatriptan Allergy Shortness Verified 01/29/23 12:22 of Breath Review of Systems Review of Systems: Positive chest pain Yes all other systems are reviewed and are negative [facility] Past Medical History Attestation statement: The following information was validated with the patient. Medical History Asthma Cervical cancer Surgical History History of hysterectomy Social History Social History Alcohol intake: never Advance Directives: No Advance Directives Information Provided: No Physical Exam ED Vital Signs: Vital Signs - 24 hr 01/29/23 12:23 01/29/23 13:23 01/29/23 13:25 Temperature 98 F Pulse Rate 78 83 82 Respiratory Rate 19 Blood Pressure 140/85 H 143/90 H 145/91 H Pulse Oximetry 99 Oxygen Delivery Method Room Air 01/29/23 13:27 Temperature Pulse Rate 82 Respiratory Rate Blood Pressure 138/92 H Pulse Oximetry Oxygen Delivery Method BMI result Body Mass Index 44.5 Appearance: Alert. Oriented X3. No acute distress. Eyes: Pupils equal, round and reactive to light. ENT: Pharynx normal. Neck: Normal inspection. Neck supple. No lymph nodes noted. No crepitus CVS: Normal heart rate and rhythm. Pulses normal. Normal S1 and S2 Respiratory: No respiratory distress. Breath sounds normal. No Wheezing. No rales Abdomen: Soft and nontender. No rigidity. No distention. good BS x4 Skin: Skin warm and dry. Normal skin color. Normal skin turgor. Extremities: No lower extremity edema. Neurovascular intact to all extremities. No Lacerations. No Rash Neuro: Oriented X 3. No motor deficit. No sensory deficit. Moving all extermities. No slurred speech Medical Decision Making Medical Decision Making MDM Narrative: Patient's chest pain atypical. She is 42 years old. History of hypertension. EKG showed no signs of STEMI. Patient's troponin is negative x2 sets. Heart score is less than 3. Joint decision was made to discharge patient. Patient already had an x-ray done during the last visit for the same chest pain. Patient's x-ray was negative for any acute evidence of pneumonia pneumothorax. History not consistent with PE. Patient in stable condition. Patient's blood pressure in the emergency department was acceptable. Differential Diagnosis Differential Diagnoses: The differential diagnosis associated with the presentation includes Pneumonia, pneumothorax, ACS, hypertension Lab Data 01/29/23 12:33 01/29/23 12:33 Labs: Lab Results 01/29/23 01/29/23 01/29/23 Range/Units 12:33 12:33 12:33 WBC 12.3 H (4.8-10.8) X10*3/uL RBC 5.09 (4.20-5.50) X10*6/uL Hgb 13.3 (12.0-16.0) g/dl Hct 41.8 (37.0-47.0) % MCV 82.1 (80.0-98.0) fL MCH 26.1 L (27.0-33.0) pg MCHC 31.8 (31.0-35.0) g/dl RDW 13.9 (11.0-16.0) % Plt Count 372 (160-400) X10*3/uL MPV 9.5 (9.4-12.3) fL Immature Gran % (Auto) 0.5 H (0.0-0.4) % Neut % (Auto) 65.4 (45-73) % Lymph % (Auto) 23.6 (20-40) % Gregory % (Auto) 7.1 (2-11) % Eos % (Auto) 2.8 (0-4) % Baso % (Auto) 0.6 (0-2) % Lymph # (Auto) 2.9 (1.2-4.9) X10*3/uL Gregory # (Auto) 0.9 (0.1-1.2) X10*3/uL Eos # (Auto) 0.3 (0.0-0.4) X10*3/uL Baso # (Auto) 0.1 (0.0-0.2) X10*3/uL Abs Immat Gran (auto) 0.06 H (0.00-0.03) X10*3/uL Absolute Neuts (auto) 8.0 (2.0-8.3) x10*3/uL Absolute Nucleated RBC 0.000 (0.0-0.012) X10*3/uL Nucleated RBC % (auto) 0.0 (0.0-0.2) /100WBC Sodium 138 (135-145) mmol/L Potassium 3.8 (3.3-5.1) mmol/L Chloride 99 (96-108) mmol/L Carbon Dioxide 28 (22-29) mmol/L Anion Gap 15 (12-20) BUN 15 (9-16) mg/dL Creatinine 0.81 (0.5-1.4) mg/dL Estim Creat Clear Calc 129.0 Estimated GFR > 60 Random Glucose 101 (60-115) mg/dL Calcium 9.5 D (8.4-10.2) mg/dL Magnesium 2.0 (1.6-2.6) mg/dL Total Bilirubin 0.6 (0.0-1.0) mg/dL Direct Bilirubin 0.2 (0.0-0.5) mg/dL AST 27 (5-31) U/L ALT 37 H (0-31) U/L Alkaline Phosphatase 114 (39-117) U/L Troponin I High Sens < 2.7 (<3.5-17.0) ng/L Total Protein 8.2 H (6.5-8.0) g/dL Albumin 4.0 (3.5-5.0) g/dL 01/29/23 Range/Units 15:17 WBC (4.8-10.8) X10*3/uL RBC (4.20-5.50) X10*6/uL Hgb (12.0-16.0) g/dl Hct (37.0-47.0) % MCV (80.0-98.0) fL MCH (27.0-33.0) pg MCHC (31.0-35.0) g/dl RDW (11.0-16.0) % Plt Count (160-400) X10*3/uL MPV (9.4-12.3) fL Immature Gran % (Auto) (0.0-0.4) % Neut % (Auto) (45-73) % Lymph % (Auto) (20-40) % Gregory % (Auto) (2-11) % Eos % (Auto) (0-4) % Baso % (Auto) (0-2) % Lymph # (Auto) (1.2-4.9) X10*3/uL Gregory # (Auto) (0.1-1.2) X10*3/uL Eos # (Auto) (0.0-0.4) X10*3/uL Baso # (Auto) (0.0-0.2) X10*3/uL Abs Immat Gran (auto) (0.00-0.03) X10*3/uL Absolute Neuts (auto) (2.0-8.3) x10*3/uL Absolute Nucleated RBC (0.0-0.012) X10*3/uL Nucleated RBC % (auto) (0.0-0.2) /100WBC Sodium (135-145) mmol/L Potassium (3.3-5.1) mmol/L Chloride (96-108) mmol/L Carbon Dioxide (22-29) mmol/L Anion Gap (12-20) BUN (9-16) mg/dL Creatinine (0.5-1.4) mg/dL Estim Creat Clear Calc Estimated GFR Random Glucose (60-115) mg/dL Calcium (8.4-10.2) mg/dL Magnesium (1.6-2.6) mg/dL Total Bilirubin (0.0-1.0) mg/dL Direct Bilirubin (0.0-0.5) mg/dL AST (5-31) U/L ALT (0-31) U/L Alkaline Phosphatase (39-117) U/L Troponin I High Sens < 2.7 (<3.5-17.0) ng/L Total Protein (6.5-8.0) g/dL Albumin (3.5-5.0) g/dL Independent Interpretation I performed an independent interpretation of an: EKG Interpretation: My interpretation patient's EKG showed a sinus rhythm heart rate is 80 AR QRS QT within normal limits there is LVH noted there is no acute ST segment elevation noted External Record Review External record reviewed: Inpatient record Previous ER record Chronic Conditions Patient?s care impacted by: Hypertension Discharge Plan Discharge Clinical Impression: Chest pain, Hypertension Instructions: Chest Pain (ED) Referrals: [facility] [Physician] - 02/02/23
--- OUTSIDE RECORDS SUMMARY | 2023-01-29 13:36 | XMS_ITS | Continuity of Care Document ---
Author Name Unknown Organization [facility] Address [address] [place] [address]- Care Team Providers Care Wash Crew Person Name Role Phone Damian Reyes MD Primary Care Physician [place] [facility] [place] 12/26/22 - 01/25/23 [facility] [place] [address]- [place] Allergies, Adverse Reactions, Alerts Substance Reaction Severity Status SUMAtriptan 1 Persistent Moderate Active Tylenol with Codeine gets red and hot Act mulu 1Vomiting, weakness, flushing Immunizations Given and Recorded Vaccine Date Status Refusal Reason [id number] 12y+ bivalent booster vax 01/02/23 Given SARS-CoV-2 mRNA ([id number]) vax 02/18/22 Given SARS-CoV-2 (COVID-19) mRNA BNT-162b2 [...] 08/04/2214:56:00 EDT, Aerosol, Route to Pharmacy Electronically, [id number], [facility] #[id number], 167, cm, 08/04/22 14:42:00... Start Date: 08/04/22 [...] EDT, Supply Start Date: 06/28/21 Status: Ordered Compression Stockings Compression Stockings, See Instructions, # 2 pack/packet, Refills 0, Tot. Refills 0, Maintenance, Compression Stockings Surgical, calf lenght, 20-30 mmHg. SABRINA: 99 Chronic venous insufficiency I87.2, 01/22/23 13:16:00 EDT, Supply Start Date: 01/22/23 Status: Ordered diclofenac 1% topical gel = 2 Gm, Topically, 4 times a day, PRN Pain , Moderate, # 100 Gm, 0 Refills, Maintenance, 01/02/23 11:21:00 EDT, [facility] #[id number], Partial fill upon patient request if the prescription is for a schedule II opioid drug., 167, cm, 01/02/23 10:... Start Date: 01/02/23 Stop Date: 02/01/23 Status: Ordered enalapril 5 mg oral tablet 5 mg, 1, tablet, By Mouth, Daily, # 30 tablet, Refills 3, Tot. Refills 3, Maintenance, 11/06/22 15:19:00 EST, Route to Pharmacy Electronically, [facility] #[id number], Partial fill upon patient request if the [...] 01/30/23 15:32:00 EDT, 01/16/23 15:32:00 EDT, Lotion, [facility] #[id number], Partial fill upon patient request ifthe prescription is for a schedule II opioid drug.,... Start Date: 01/16/23 Stop Date: 01/30/23 Status: Ordered meloxicam 7.5 mg oral tablet 1 tablet = 7.5 mg, By Mouth, 2 times a day, # 28 tablet, 0 Refills, Maintenance, 01/16/23 15:29:00 EDT, Tablet, [facility] #[id number], Partial fill upon patient request if the prescription is for a schedule II opioid drug., 167, cm, 01/16/23 14:... Start Date: 01/16/23 Stop Date: 01/30/23 Status: Ordered montelukast 10 mg oral tablet 10 mg, 1, tablet, By Mouth, Daily, # 30 tablet, Refills 5, Tot. Refills 5, Maintenance, 06/30/22 10:47:00 EDT, Route to Pharmacy Electronically, [facility] #[id number], Partial fill upon patientrequest if the prescription [...] 11:11:00 EST, Aerosol, Route to Pharmacy Electronically, [id number], [facility] #[id number], 167, cm, 09/11/22 11:44:00 EST... Start Date: 09/23/22 Status: Ordered tiZANidine 2 mg oral tablet 1, tablet, By Mouth, 3 times a day, # 90 tablet, Refills 0, Maintenance, 01/13/23 13:01:00 EDT, Route to Pharmacy Electronically, [facility] #[id number], 167, cm, 01/09/23 16:26:00 EDT, Height, 130.9, kg, 12/17/22 10:11:00 EST, Dry Weight Start Date: 01/13/23 Status: Ordered wrist splints wrist splints, See Instructions, # 2 each, Refills 0, Tot. Refills 0, Maintenance, dx : cts, to usenightly ., 01/31/20 15:50:00 EDT, Supply Start Date: 01/31/20 Status: Ordered Problem List Condition Confirmation Course Effective Dates Status H ealth Status Informant Acute asthma flare Confirmed Active Allergic rhinitis Confirmed Active Asthma Confirmed Active Bartholin's gland cyst Confirmed Active Carpal tunnel syndrome, left Confirmed Active S/P laparoscopic appendectomy Confirmed 04/19/22 Active HTN (hypertension) Confirmed Active Lipoma of back Confirmed Active Cervical cancer Confirmed Active MAGNOLIA (obstructive sleep apnea) Confirmed Active Chronic venous insufficiency Confirmed Active Prediabetes Confirmed Active Severe obesity Confirmed Active Acquired vaginal adhesions Confirmed Active Varicose veins of both lower extremities Confirmed Active Social History Social History Type Response Smoking Status Never (less than 100 in lifetime) entered on: 01/16/23 Sex Patient Care team information Care Team Personnel Name: Damian Reyes MD Position: [facility] Resident Member Role: PCP Address: Address: [address] [place] [id number]- Name: Zoya Rodgers RN Position: [facility] Onco RN Member Role: Primary Care Nurse Name: Jayde Llanos RN Position: [facility] RN Member Role: Primary Care Nurse Care Team Related Persons Name: MCCRARYMARTIRUSLAN Address: home [address] [address] Name: BREANA MCCLENDON Address: home [address] [address] Name: DONTAE BAZZI Address: home [address] [place] [address] Name: CELESTINE BAZZI Address: home [address] [place] [address]
[2023-01-29 15:50] LABS: Troponin-I High Sensitivity < 2.7 ng/L (<3.5-17.0)
[2023-01-29 16:00] VITALS: BP 123/87; PULSE 81; RESP 16; TEMP 36.3; O2SAT 98
== END 2023-01-29 16:15 | disposition home or self-care (01) ==
PROVIDERS: Physician Assistant; Emergency Provider Emergency Medicine Emergency Medical Services; PCP Plastic Surgery
DX: R07.9 Chest pain, unspecified (principal); I10 Essential (primary) hypertension
CPT/HCPCS: 36415; 80048; 80076; 83735; 84484; 85025; 93005; 99283; 99284